=== PATIENT | female | born 1960 | race Caucasian/White ===

== ENCOUNTER 2016-08-10 17:23 | Emergency (ER) | payer MEDICARE, MEDICAID ==
--- NOTE | 2016-08-10 17:53 | UC ---
Respiratory Complaint HPI - HPI Summary HPI Summary: 56 yo female with cough and fever x 5 days no cp no sob no n/v/d - History of Current Complaint Chief Complaint: UCGeneralIllness Stated Complaint: COLD,COUGH,CHILLS Time Seen by Provider: 08/10/16 17:42 Hx Obtained From: Patient Onset/Duration: Gradual Onset, Lasting Days Timing: Constant Severity Initially: Mild Severity Currently: Moderate Pain Intensity: 0 Pain Scale Used: 0-10 Numeric Character: Cough: Productive Aggravating Factors: Exertion, Deep Breaths Associated Signs And Symptoms: Positive: Fever, Chills. Negative: Dyspnea, Pleuritic Chest Pain, Wheezing, Hemoptysis, Dizziness, Calf Pain, Calf Swelling , Edema, URI, Nasal Congestion, Hoarseness, Sinus Discomfort - Allergies/Home Medications Allergies/Adverse Reactions: Allergies Allergy/AdvReac Type Severity Reaction Status Date / Time Benzonatate [From Tessalon] Allergy Hives Verified 08/10/16 17:29 Penicillin G Allergy Hives/Diff. Verified 08/10/16 17:29 Breathing/I tching Sulfa Drugs Allergy Hives Verified 08/10/16 17:29 PMH/Surg Hx/FS Hx/Imm Hx Previously Healthy: Yes - Surgical History Surgical History: Yes Surgery Procedure, Year, and Place: appy. c section - Family History Known Family History: Positive: Hypertension - Social History Alcohol Use: Rare Substance Use Type: None Smoking Status (MU): Former Smoker - Immunization History Most Recent Influenza Vaccination: unsure Most Recent Tetanus Shot: thinks she is current Most Recent Pneumonia Vaccination: denies Review of Systems Constitutional: Fever, Chills, Fatigue Skin: Negative Eyes: Negative ENT: Negative Respiratory: Cough Cardiovascular: Negative Gastrointestinal: Negative Genitourinary: Negative Motor: Negative Neurovascular: Negative Musculoskeletal: Negative Neurological: Headache Psychological: Negative All Other Systems Reviewed And Are Negative: Yes Physical Exam Triage Information Reviewed: Yes Appearance: Well-Appearing, No Pain Distress, Well-Nourished Vital Signs: Initial Vital Signs Temp 101.1 F 08/10/16 17:33 Pulse 103 08/10/16 17:33 Resp 16 08/10/16 17:33 BP 123/73 08/10/16 17:33 Pulse Ox 97 08/10/16 17:33 Vital Signs Reviewed: Yes Eyes: Positive: Conjunctiva Clear ENT: Positive: Normal ENT inspection. Negative: Nasal congestion, Nasal drainage, Tonsillar exudate, Trismus, Muffled/hoarse voice Neck: Positive: Supple, Nontender Respiratory: Positive: Lungs clear, Normal breath sounds, No respiratory distress, No accessory muscle use Cardiovascular: Positive: RRR, No Murmur Musculoskeletal: Positive: ROM Intact, No Edema Neurological: Positive: Alert Psychological Exam: Normal Skin Exam: Normal UC Diagnostic Evaluation - Laboratory O2 Sat by Pulse Oximetry: 97 - normal/not hypoxic - Radiology Xray Interpretation: No Acute Changes Radiology Interpretation Completed By: Radiologist Respiratory Course/Dx - Differential Dx/Diagnosis Provider Diagnoses: acute bronchitis Discharge - Discharge Plan Condition: Stable Disposition: HOME Prescriptions: Azithromycin TAB* [Zithromax TAB (Z-NICKIE) 250 mg #6 tabs] 250 mg PO DAILY #6 tab Patient Education Materials: Acute Bronchitis (ED) Referrals: Maurilio Gonzalez MD [Primary Care Provider] - 4 Days (if not better) Additional Instructions: recheck for new or worsening symptoms
[2016-08-10 17:59] VITALS: BP 123/73
--- NOTE | 2016-08-10 18:14 | RAD ---
Indication: Fever, cough. 2 views of the chest demonstrates no mediastinal shift. Heart is of normal size and configuration. Lung fortune are clear. IMPRESSION: No active cardiopulmonary disease is noted.
== END 2016-08-10 18:38 | disposition home or self-care (01) ==
LOC: UCEAST 17:23
DX: J20.9 Acute bronchitis, unspecified (principal); Z87.891 Personal history of nicotine dependence
CPT/HCPCS: 71020; 99212; G0463

== ENCOUNTER 2016-08-17 11:28 | Inpatient (IN) | payer MEDICARE, MEDICAID ==
[2016-08-17 12:53] LABS: Hematocrit 39 % (35-47); Hemoglobin 12.5 g/dl (12.0-16.0); Mean Corpuscular HGB Conc 32 g/dl (31-36); Mean Corpuscular Hemoglobin 30 pg (27-31); Mean Corpuscular Volume 92 fL (80-97); Mean Platelet Volume 8 um3 (7.4-10.4); Red Blood Count 4.17 10^6/ul (4.0-5.4); Red Cell Distribution Width 13 % (10.5-15); White Blood Count 8.2 10^3/ul (3.5-10.8)
[2016-08-17 13:07] LABS: ALT 9 U/L (7-52); AST 19 U/L (13-39); Albumin 4.5 g/dL (3.2-5.2); Alkaline Phosphatase 63 U/L (34-104); Anion Gap 8 mmol/L (2-11); BUN/Creatinine Ratio 18.4 (8-20); Blood Urea Nitrogen 14 mg/dL (6-24); CO2 Carbon Dioxide 29 mmol/L (22-32); Calcium 9.8 mg/dL (8.6-10.3); Chloride 101 mmol/L (101-111); EGFR African American 100.5 (>60); EGFR Non-African American 78.2 (>60); Globulin 2.9 g/dL (2-4); Glucose 108 mg/dL (70-100); Potassium 4.2 mmol/L (3.5-5.0); Sodium 138 mmol/L (133-145); Total Protein 7.4 g/dL (6.4-8.9)
[2016-08-17 13:28] LABS: Acetaminophen < 15 mcg/mL; Alcohol < 10 mg/dL (<10); Salicylate < 2.50 mg/dL (<30)
[2016-08-17 13:37] LABS: TSH (Thyroid Stimulating Horm) 0.79 mcIU/mL (0.34-5.60)
[2016-08-17 14:16] LABS: Urine Bacteria Absent (Absent); Urine Bilirubin Negative (Negative); Urine Glucose Negative (Negative); Urine Nitrite Negative (Negative)
[2016-08-17 14:29] LABS: Benzodiazepine Urine Screen Presumptive Positive (None Detect)
[2016-08-17] MEDS ORDERED: Al Hydrox/Mg Hydrox/Simet LIQ* 30 ML UDC PO PRN (16:03)
[2016-08-17] MEDS ORDERED: Acetaminophen TAB* 325 MG PO PRN (16:03)
[2016-08-17] MEDS: ARIPiprazole TAB* 5 MG PO SCH (20:50)
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
[2016-08-18] MEDS: Vitamin THERAPEUTIC TAB PO SCH (09:08)
[2016-08-18] MEDS: Sertraline* 100 MG TAB PO SCH (09:08)
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
[2016-08-18 15:05] LABS: Cholesterol 217 mg/dL; HDL Cholesterol 48.3 mg/dL; LDL Cholesterol 152 mg/dL; Triglycerides 83 mg/dL
[2016-08-18] MEDS: ARIPiprazole TAB* 5 MG PO SCH (21:26)
[2016-08-18] MEDS: LORazepam TAB(*) 0.5 MG PO SCH (21:26)
[2016-08-19] MEDS: Sertraline* 100 MG TAB PO SCH (09:05)
[2016-08-19] MEDS: Vitamin THERAPEUTIC TAB PO SCH (09:05)
[2016-08-19] MEDS ORDERED: guaiFENesin LIQ* 100 MG/5 ML UDC PO PRN (18:33)
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
--- NOTE | 2016-08-19 19:32 | RAD ---
INDICATION: Cough with a history of bronchitis. COMPARISON: Most recent comparison chest x-rays dated August 10, 2016 TECHNIQUE: PA and lateral views of the chest were obtained. FINDINGS: The heart and mediastinum are normal in size and contour. Overlying the bilateral lower lungs are proximally 1 cm well-circumscribed densities that most likely represent nipple shadows. The lungs are otherwise grossly clear without focal or lobar consolidation. No significant peribronchial cuffing is observed. There is no evidence of large pleural effusion. Visualized bones are normal for the patient's age. There is no radiographic evidence of free air beneath the diaphragm IMPRESSION: 1. WELL-CIRCUMSCRIBED ROUND DENSITIES AT THE BILATERAL LUNG BASES MOST LIKELY REPRESENT NIPPLE SHADOWS. THIS CAN BE CONFIRMED WITH ACQUISITION OF A REPEAT AP CHEST X-RAY AFTER APPLYING EXTERNAL NIPPLE MARKERS. 2. OTHERWISE THERE IS NO RADIOGRAPHIC EVIDENCE OF ACUTE CARDIOPULMONARY DISEASE.
[2016-08-19] MEDS: ARIPiprazole TAB* 5 MG PO SCH (21:26)
[2016-08-19] MEDS: LORazepam TAB(*) 0.5 MG PO SCH (21:26)
[2016-08-20] MEDS: Vitamin THERAPEUTIC TAB PO SCH (09:08)
[2016-08-20] MEDS: Sertraline* 100 MG TAB PO SCH (09:08)
[2016-08-21] MEDS: ARIPiprazole TAB* 5 MG PO SCH ×2 (07:28→22:23)
[2016-08-21] MEDS: LORazepam TAB(*) 0.5 MG PO SCH ×2 (07:28→22:24)
[2016-08-21] MEDS: Vitamin THERAPEUTIC TAB PO SCH (09:17)
[2016-08-21] MEDS: Sertraline* 100 MG TAB PO SCH (09:17)
--- NOTE | 2016-08-21 13:05 | PN ---
MHU: Group Therapy Note - Service Type Service Type: [id number] Group Psychotherapy - Cognitive Behavioral Group Therapy ( CBT):Patient attended CBT programming this morning and presented with flat affect that did not vary with discussion. Although responsive to direct prompts to respond to questions, patient did not engage in spontaneous conversation.
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
[2016-08-22] MEDS: Vitamin THERAPEUTIC TAB PO SCH (08:16)
[2016-08-22] MEDS ORDERED: Sertraline* 100 MG TAB PO SCH ×3 (09:00)
--- NOTE | 2016-08-22 10:16 | PN ---
Subjective - Subjective Service Type: 79468 Hosp care 15 min low complexity Assessment - Assessment Inpatient DSM-IV Dx: Unspecified psychotic DO. OCD. Intellectual disability Clinical Impression: 56yo female with PPHx significant for Intellectual disability, OCD, and psychosis [place] [facility] [place] by her rifle case repairer. Patient in a period of psychosis which per historical report is focused on paranoia about her sister and fear of getting sick due to germs. This paranoia is associated with decompensation in ability to maintain ADLs and to keep herself safe. It is noted that patient was med non-compliant for ~1 week prior to admission. She was on Zoloft 200mg po daily. Patient has been med compliant and was anxious but onboard with Zoloft dose increase. Will discuss with daughter as well. Plan - Plan Treatment Plan: Name: PRISCA CLARK Birthdate: 1960 [id number] PLAN: ------ 1. Continue admission [place] [facility] for [place] and symptom mx. 2. Patient has voiced concern with new meds. She was amenable to trial of Zoloft 300mg po daily for anxiety / OCD / mood symptoms. 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 3. Will continue to encourage Abilify 5mg po qhs for psychosis. 4. Continue compiling collateral information from daughter(Rachael#[phone]) left message for return call today, shoe parts caser -Rick, PCP, and [facility] providers. 5. Patient to participate in milieu activities and groups. Medications: Current Medications Acetaminophen (Tylenol Tab*) 650 mg PO Q4H PRN PRN Reason: for pain; or Temp >101 F Al Hydrox/Mg Hydrox/Simethicone (Maalox Plus*) 30 ml PO Q4H PRN PRN Reason: INDIGESTION Aripiprazole (Abilify Tab*) 5 mg PO BEDTIME [facility] Last Admin: 08/21/16 22:23 Dose: Not Given Guaifenesin (Robitussin*) 5 ml PO Q6H PRN PRN Reason: COUGH Lorazepam (Ativan Tab(*)) 0.25 mg PO BEDTIME [facility] Last Admin: 08/21/16 22:24 Dose: Not Given Multivitamins (Theragran Tab*) 1 tab PO DAILY [facility] Last Admin: 08/22/16 08:16 Dose: 1 tab Sertraline HCl (Zoloft*) 200 mg PO DAILY [facility] Last Admin: 08/22/16 08:16 Dose: 200 mg
--- NOTE | 2016-08-22 11:46 | PN ---
MHU: Group Therapy Note - Service Type Service Type: [id number] Group Psychotherapy - Cognitive Behavioral Therapy (CBT): Patient presents with high volume of speech that impresses as being coherent within the context of self-report, but is tangential and off topic in group context. Concerns regarding disorganization of thought are apparent.
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
[2016-08-22] MEDS: LORazepam TAB(*) 0.5 MG PO SCH (21:18)
[2016-08-22] MEDS: ARIPiprazole TAB* 5 MG PO SCH (21:18)
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
[2016-08-23] MEDS: Vitamin THERAPEUTIC TAB PO SCH (13:12)
[2016-08-23] MEDS: Sertraline* 100 MG TAB PO SCH (13:13)
[2016-08-23 14:11] LABS: Desmethylsertraline 340 ng/mL
[2016-08-24] MEDS: Sertraline* 100 MG TAB PO SCH (09:37)
[2016-08-24] MEDS: Vitamin THERAPEUTIC TAB PO SCH (09:37)
--- NOTE | 2016-08-24 11:15 | PN ---
MHU: Group Therapy Note - Service Type Service Type: [id number] Group Psychotherapy - Cognitive Behavioral Group Therapy ( CBT):Patient presented in CBT programming as disorganized and disruptive in discussion and needed repeated redirection to attend to presented materials.
--- NOTE | 2016-08-24 11:48 | PN ---
Subjective - Subjective Service Type: 19931 Hosp care 15 min low complexity Subjective: Patient continues to be consumed with germs and potentially being killed by them. She did take Zoloft 300mg tab yesterday, but demanded an elaborate cleanliness routine to administer. Patient also showered as agreed in a new bedroom. Patient did sleep in her room last night. She has showered this morning. Patient continues to be engaged and pleasant. Appetite is wnl. Paitent denies med s/e. She denies SI/HI and AH/VH. Objective - Appearance Appearance: Well Developed/Nourished Dysmorphic Features: No Hygiene: Normal Grooming: Fairly Well Kept - Behavior Psychomotor Activities: Normal Exhibits Abnormal Movement: No - Attitude and Relatedness Attitude and Relatedness: Cooperative Eye Contact: Good - Speech Quality: Unpressured Latencies: Normal Quantity: Appropriate - Affect Observed Affect: Depressed Affect Consistent with: Dysphoria - Thought Process Patient's Thought Process: Coherent Thought Content: No Passive Wish, No Suicidal Planning, No Homicidal Ideation, No Paranoid Ideation - Sensorium Experiencing Hallucinations: No, Sensorium is Clear Type of Hallucinations: Visual: No, Auditory: No, Command: No - Level of Consciousness Orientation: Yes Intact, Yes Orientated to Time, Yes Orientated to Place, Yes Orientated to Person - Impulse Control Impulse Control: Intact - Insight and Judgement Insight and Judgement: Fair - Group Participation Particating in Group Activities: Yes - Medication Management Medication Management Adherence: Partial Assessment - Assessment Merits Inpatient Hospitalization: For Immediate Safety, For Stabilization Inpatient DSM-IV Dx: Unspecified psychotic DO. OCD. Intellectual disability Clinical Impression: 56yo female with PPHx significant for Intellectual disability, OCD, and psychosis presented to [facility] brought in by her case mgr. Patient in a period of psychosis which per historical report is focused on paranoia about her sister and fear of getting sick due to germs. This paranoia is associated with decompensation in ability to maintain ADLs and to keep herself safe. It is noted that patient was med non-compliant for ~1 week prior to admission. She has been compliant with Zoloft 200mg po daily, but has declined the start of high dose Zoloft after initially being on board due to anxiety of potential side effects. Patient also refusing recommended antipsychotic med Abilify. At Family meeting on 08/22/16 patient agreed to be compliant with high dose Zoloft for treatment resistent OCD. Plan - Plan Treatment Plan: Name: PRISCA CLARK Birthdate: 1960 [id number] PLAN: ------ 1. Continue admission to [facility] for safety and symptom mx. 2. 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 3. Zoloft level - 192, range is 30 to 200. Desmethylsertraline - 340, no range 4. Will continue to encourage Abilify 5mg po qhs for psychosis. Patient has been refusing recommended antipsychotic med Abilify. 5. Will start process for treatment over objection for psychotic symptoms not addressed by Zoloft. 6. Family meeting with daughter Rachael, case mgr Rick, patient and this provider completed 08/22/16. 7. Patient to participate in milieu activities and groups. Medications: Current Medications Acetaminophen (Tylenol Tab*) 650 mg PO Q4H PRN PRN Reason: for pain; or Temp >101 F Al Hydrox/Mg Hydrox/Simethicone (Maalox Plus*) 30 ml PO Q4H PRN PRN Reason: INDIGESTION Aripiprazole (Abilify Tab*) 5 mg PO BEDTIME RESHMA Last Admin: 08/24/16 00:00 Dose: Not Given Guaifenesin (Robitussin*) 5 ml PO Q6H PRN PRN Reason: COUGH Lorazepam (Ativan Tab(*)) 0.25 mg PO BEDTIME RESHMA Last Admin: 08/24/16 00:00 Dose: Not Given Multivitamins (Theragran Tab*) 1 tab PO DAILY [facility]HMA Last Admin: 08/24/16 09:37 Dose: Not Given Sertraline HCl (Zoloft*) 300 mg PO DAILY [facility] Last Admin: 08/24/16 09:37 Dose: Not Given - Discharge Plan Discharge Plan: Outpatient Follow Up Outpatient Program: [facility]
[2016-08-24] MEDS: ARIPiprazole TAB* 5 MG PO SCH ×2 (20:09)
[2016-08-24] MEDS: LORazepam TAB(*) 0.5 MG PO SCH ×2 (20:09)
[2016-08-25] MEDS: Sertraline* 100 MG TAB PO SCH (08:32)
[2016-08-25] MEDS: Vitamin THERAPEUTIC TAB PO SCH (08:32)
--- NOTE | 2016-08-25 15:13 | PN ---
Subjective - Subjective Service Type: 45049 Hosp care 15 min low complexity Subjective: Patient tearful on my approach. She reports being upset with peers and staff who are laughing at her disability. Patient's affect very anxious and scared at times during interview. Patient was reassured she was not the topic of their laughter. She was asked what evidence or proof does she have that staff/peers are laughing at her. Patient stated, "I just don't trust people here". Patient then escorted this provider to her room to show that her sheets had been moved from how she left them after making her bed and that a bag she left closed had been opened. She stated, "I can just tell, I know how I left it". Patient did take her Zoloft dose this morning. She was encouraged to continue being compliant. She is noted to have fair sleep and appetite. She has not showered in 2 days now. Last shower after hours of prompting. She is isolative in the milieu and will not touch most things due to germaphobia. She does though participate in milieu activities and touched multiple art supplies without concern for germs. She is noted to rarely attend groups, and reported to be a disruptive presence due to compulsions. She denies SI/HI and AH/VH. Objective - Appearance Appearance: Well Developed/Nourished Dysmorphic Features: No Hygiene: Mal-odorous Grooming: Disheveled - Behavior Psychomotor Activities: Normal Exhibits Abnormal Movement: No - Attitude and Relatedness Attitude and Relatedness: Superficially Cooperative Eye Contact: Good - Speech Quality: Unpressured Latencies: Normal Quantity: Appropriate - Mood Patient's Decription of Mood: "Anxious" - Affect Observed Affect: Labile - Thought Process Patient's Thought Process: Coherent Thought Content: No Passive Wish, No Suicidal Planning, No Homicidal Ideation, No Paranoid Ideation - Sensorium Experiencing Hallucinations: No, Sensorium is Clear Type of Hallucinations: Visual: No, Auditory: No, Command: No - Level of Consciousness Level of Consciousness: Alert Orientation: Yes Intact, Yes Orientated to Time, Yes Orientated to Place, Yes Orientated to Person - Impulse Control Impulse Control: Poor - Insight and Judgement Insight and Judgement: Poor - Group Participation Particating in Group Activities: No - Medication Management Medication Management Adherence: Partial Assessment - Assessment Merits Inpatient Hospitalization: For Immediate Safety, For Stabilization Inpatient DSM-IV Dx: Unspecified psychotic DO. OCD. Intellectual disability Clinical Impression: 56yo female with PPHx significant for Intellectual disability, OCD, and psychosis presented to [facility] brought in by her family caseworker. Patient in a period of psychosis which per historical report is focused on paranoia about her sister and fear of getting sick due to germs. This paranoia is associated with decompensation in ability to maintain ADLs and to keep herself safe. It is noted that patient was med non-compliant for ~1 week prior to admission. 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 She has been compliant for the last 2 days. Patient continues to refuse recommended antipsychotic med Abilify, but last admission only required uptitration of SSRI for resolution of OCD/psychotic Symptoms. Patient will be started on a behavioral modification plan Sunday to address her Ongoing inattention to ADLs, poor med compliance, and poor participation in milieu activities And groups due to her perception/paranoia of peers laughing at her disability and germaphobia. Plan - Plan Treatment Plan: Name: PRISCA LCARK Birthdate: 1960 [id number] PLAN: ------ 1. Continue admission to [facility] for safety and symptom mx. 2. 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 3. Zoloft level - 192, range is 30 to 200. Desmethylsertraline - 340, no range 4. Will continue to encourage Abilify 5mg po qhs for psychosis. Patient has been refusing recommended antipsychotic med Abilify. 5. Plan to start Behavioral modification plan to address patient's Sunday to address ongoing inattention to ADLs, poor med compliance, and poor participation in milieu activities and groups due to her perception/paranoia of peers laughing at her disability and germaphobia. 6. Will likely start process for treatment over objection for psychotic symptoms not addressed by Zoloft. 7. Family meeting with daughter Rachael, family caseworker Rick, patient and this provider completed 08/22/16. 8. Patient to participate in milieu activities and groups. Medications: Current Medications Acetaminophen (Tylenol Tab*) 650 mg PO Q4H PRN PRN Reason: for pain; or Temp >101 F Al Hydrox/Mg Hydrox/Simethicone (Maalox Plus*) 30 ml PO Q4H PRN PRN Reason: INDIGESTION Aripiprazole (Abilify Tab*) 5 mg PO BEDTIME RESHMA Last Admin: 08/24/16 20:09 Dose: Not Given Guaifenesin (Robitussin*) 5 ml PO Q6H PRN PRN Reason: COUGH Lorazepam (Ativan Tab(*)) 0.25 mg PO BEDTIME RESHMA Last Admin: 08/24/16 20:09 Dose: Not Given Multivitamins (Theragran Tab*) 1 tab PO DAILY [facility]HMA Last Admin: 08/25/16 08:32 Dose: 1 tab Sertraline HCl (Zoloft*) 300 mg PO DAILY [facility] Last Admin: 08/25/16 08:32 Dose: 300 mg - Discharge Plan Discharge Plan: Outpatient Follow Up Outpatient Program: [facility]
[2016-08-25] MEDS: ARIPiprazole TAB* 5 MG PO SCH (21:45)
[2016-08-25] MEDS: LORazepam TAB(*) 0.5 MG PO SCH (21:45)
[2016-08-26] MEDS: Sertraline* 100 MG TAB PO SCH (09:24)
[2016-08-26] MEDS: Vitamin THERAPEUTIC TAB PO SCH (10:07)
[2016-08-26] MEDS: ARIPiprazole TAB* 5 MG PO SCH (21:18)
[2016-08-26] MEDS: LORazepam TAB(*) 0.5 MG PO SCH (21:18)
[2016-08-27] MEDS: Sertraline* 100 MG TAB PO SCH ×2 (09:37→09:49)
[2016-08-27] MEDS: Vitamin THERAPEUTIC TAB PO SCH ×2 (09:38→09:49)
[2016-08-27] MEDS: ARIPiprazole TAB* 5 MG PO SCH (21:32)
[2016-08-27] MEDS: LORazepam TAB(*) 0.5 MG PO SCH (21:32)
[2016-08-28] MEDS: Vitamin THERAPEUTIC TAB PO SCH (09:55)
[2016-08-28] MEDS: Sertraline* 100 MG TAB PO SCH ×2 (09:55→16:19)
--- NOTE | 2016-08-28 14:04 | PN ---
MHU: Group Therapy Note - Service Type Service Type: 48160 Group Psychotherapy - Cognitive Behavioral Group Therapy ( CBT):Patient presented in CBT programming as disorganized and disruptive in discussion and needed repeated redirection to attend to presented materials.
--- NOTE | 2016-08-28 14:09 | PN ---
Subjective - Subjective Service Type: 53125 Hosp care 15 min low complexity Subjective: Patient noted to be tearful and pacing the milieu on my approach. Patient continues to perseverate on germs in the milieu. She ambulates in the milieu with her arms crossed over her chest in effort to not touch anything. She has not showered since Sunday's visit by her daughter. She was not compliant with Zoloft on Sunday. She continues to report paranoid ideations regarding one staff in particular(Mazin), who patient reports has been laughing at her and "making fun of me". Patient reports again that someone was in her room today without permission, noting again that her sheets were moved from how she knows she left them. She also reported believing there was a camera in her room watching her. She was informed the object was sprinkler head. She continues to decline the antipsychotic, Abilify. Patient stated, "If Mazin's not here, I will take the medicine." She stated, "he can not be trusted". Patient reports fair sleep and appetite. She again denies SI/HI and AH/VH. Objective - Appearance Appearance: Thin Framed Dysmorphic Features: Yes Hygiene: Mal-odorous Grooming: Disheveled - Behavior Psychomotor Activities: Normal Exhibits Abnormal Movement: No - Attitude and Relatedness Attitude and Relatedness: Minimally Cooperative Eye Contact: Fair - Speech Quality: Unpressured Latencies: Normal Quantity: Appropriate - Mood Patient's Decription of Mood: "Anxious" - Affect Observed Affect: Tearful - Thought Process Patient's Thought Process: Coherent Thought Content: No Passive Wish, No Suicidal Planning, No Homicidal Ideation, No Paranoid Ideation - Sensorium Experiencing Hallucinations: No, Sensorium is Clear Type of Hallucinations: Visual: No, Auditory: No, Command: No - Level of Consciousness Level of Consciousness: Alert Orientation: Yes Intact, Yes Orientated to Time, Yes Orientated to Place, Yes Orientated to Person - Impulse Control Impulse Control: Poor - Insight and Judgement Insight and Judgement: Poor - Group Participation Particating in Group Activities: Yes - Medication Management Medication Management Adherence: No Assessment - Assessment Merits Inpatient Hospitalization: For Immediate Safety Inpatient DSM-IV Dx: Unspecified psychotic DO. OCD. Intellectual disability Clinical Impression: 56yo female with PPHx significant for Intellectual disability, OCD, and psychosis presented to [facility] brought in by her adult protective caseworker. Patient in a period of psychosis which per historical report is focused on paranoia about her sister and fear of getting sick due to germs. This paranoia is associated with decompensation in ability to maintain ADLs and to keep herself safe. It is noted that patient was med non-compliant for ~1 week prior to admission. 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 She has been compliant for the last 2 days. Patient continues to refuse recommended antipsychotic med Abilify and demonstrates patchy compliance with SSRI for resolution of OCD symptoms. Patient will be started on a behavioral modification plan Sunday to address her ongoing inattention to ADLs, poor med compliance, and poor participation in milieu activities and groups due to her perception/paranoia of peers laughing at her disability and germaphobia. Plan - Plan Treatment Plan: Name: PRISCA CLARK Birthdate: 1960 [id number] PLAN: ------ 1. Continue admission to [facility] for safety and symptom mx. 2. 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 3. Zoloft level - 192, range is 30 to 200. Desmethylsertraline - 340, no range 4. Continue to encourage Abilify 5mg po qhs for psychosis. Patient has been refusing recommended antipsychotic med Abilify. 5. Plan to start Behavioral modification plan to address patient's ongoing inattention to ADLs, poor med compliance, and poor participation in milieu activities and groups due to her perception/ paranoia of peers laughing at her disability and germaphobia. 6. Treatment over objection process initiated due to ongoing patchy compliance with high dose Zoloft and non-compliance with antipsychotic agent. 7. Family meeting with daughter Rachael, adult protective caseworker Rick, patient and this provider completed 08/22/16. 8. Patient to participate in milieu activities and groups. Medications: Current Medications Acetaminophen (Tylenol Tab*) 650 mg PO Q4H PRN PRN Reason: for pain; or Temp >101 F Al Hydrox/Mg Hydrox/Simethicone (Maalox Plus*) 30 ml PO Q4H PRN PRN Reason: INDIGESTION Aripiprazole (Abilify Tab*) 5 mg PO BEDTIME RESHMA Last Admin: 08/27/16 21:32 Dose: Not Given Guaifenesin (Robitussin*) 5 ml PO Q6H PRN PRN Reason: COUGH Lorazepam (Ativan Tab(*)) 0.25 mg PO BEDTIME RESHMA Last Admin: 08/27/16 21:32 Dose: Not Given Multivitamins (Theragran Tab*) 1 tab PO DAILY RES[facility]MA Last Admin: 08/28/16 09:55 Dose: Not Given Sertraline HCl (Zoloft*) 300 mg PO DAILY [facility] Last Admin: 08/28/16 09:55 Dose: Not Given - Discharge Plan Discharge Plan: Outpatient [facility]
[2016-08-28] MEDS: ARIPiprazole TAB* 5 MG PO SCH (20:22)
[2016-08-28] MEDS: LORazepam TAB(*) 0.5 MG PO SCH (20:22)
[2016-08-29] MEDS: Sertraline* 100 MG TAB PO SCH ×2 (09:47→13:02)
[2016-08-29] MEDS: Vitamin THERAPEUTIC TAB PO SCH ×2 (09:48→13:03)
--- NOTE | 2016-08-29 10:33 | PN ---
Subjective - Subjective Service Type: 34699 Hosp care 15 min low complexity Subjective: Patient visible in the milieu, attends some groups but continues to refuse meds. Patient reports ongoing fear of getting sick from the meds. She had been compliant with Zoloft, but has recently been non-compliant. Patient continues to not attend to ADLs. She has not showered in days. She expresses ongoing mistrust of staff, paranoia that peers are going in her room, and inability engage in activities in the milieu due to germaphobia. Patient continues to report no SI/HI. Objective - Appearance Appearance: Thin Framed Dysmorphic Features: No Hygiene: Mal-odorous Grooming: Disheveled - Behavior Psychomotor Activities: Normal Exhibits Abnormal Movement: Yes - Attitude and Relatedness Attitude and Relatedness: Superficially Cooperative Eye Contact: Fair - Speech Quality: Unpressured Latencies: Normal Quantity: Appropriate - Mood Patient's Decription of Mood: "Anxious" - Affect Observed Affect: Tearful - Thought Process Patient's Thought Process: Coherent Thought Content: No Passive Wish, No Suicidal Planning, No Homicidal Ideation, No Paranoid Ideation - Sensorium Experiencing Hallucinations: No, Sensorium is Clear Type of Hallucinations: Visual: No, Auditory: No, Command: No - Level of Consciousness Level of Consciousness: Alert Orientation: Yes Intact, Yes Orientated to Time, Yes Orientated to Place, Yes Orientated to Person - Impulse Control Impulse Control: Intact - Insight and Judgement Insight and Judgement: Poor - Group Participation Particating in Group Activities: No - Medication Management Medication Management Adherence: No Assessment - Assessment Inpatient DSM-IV Dx: Unspecified psychotic DO. OCD. Intellectual disability Clinical Impression: 56yo female with PPHx significant for Intellectual disability, OCD, and psychosis presented to [facility] brought in by her classification case manager. Patient in a period of psychosis which per historical report is focused on paranoia about her sister and fear of getting sick due to germs. This paranoia is associated with decompensation in ability to maintain ADLs and to keep herself safe. It is noted that patient was med non-compliant for ~1 week prior to admission. 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 She has been compliant for the last 2 days. Patient continues to refuse recommended antipsychotic med Abilify and demonstrates patchy compliance with SSRI for resolution of OCD symptoms. Patient will be started on a behavioral modification plan Sunday to address her ongoing inattention to ADLs, poor med compliance, and poor participation in milieu activities and groups due to her perception/paranoia of peers laughing at her disability and germaphobia. Plan - Plan Treatment Plan: Name: PRISCA CLARK Birthdate: 1960 [id number] PLAN: ------ 1. Continue admission to [facility] for safety and symptom mx. 2. 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 3. Zoloft level - 192, range is 30 to 200. Desmethylsertraline - 340, no range 4. Continue to encourage Abilify 5mg po qhs for psychosis. Patient has been refusing recommended antipsychotic med Abilify. 5. Plan to start Behavioral modification plan to address patient's ongoing inattention to ADLs, poor med compliance, and poor participation in milieu activities and groups due to her perception/ paranoia of peers laughing at her disability and germaphobia. 6. Treatment over objection process initiated due to ongoing patchy compliance with high dose Zoloft and non-compliance with antipsychotic agent. 7. Family meeting with daughter Rachael, classification case manager Rick, patient and this provider completed 08/22/16. 8. Patient to participate in milieu activities and groups. Medications: Current Medications Acetaminophen (Tylenol Tab*) 650 mg PO Q4H PRN PRN Reason: for pain; or Temp >101 F Al Hydrox/Mg Hydrox/Simethicone (Maalox Plus*) 30 ml PO Q4H PRN PRN Reason: INDIGESTION Aripiprazole (Abilify Tab*) 5 mg PO BEDTIME RESHMA Last Admin: 08/28/16 20:22 Dose: Not Given Guaifenesin (Robitussin*) 5 ml PO Q6H PRN PRN Reason: COUGH Lorazepam (Ativan Tab(*)) 0.25 mg PO BEDTIME RESHMA Last Admin: 08/28/16 20:22 Dose: Not Given Multivitamins (Theragran Tab*) 1 tab PO DAILY [facility] Last Admin: 08/29/16 09:48 Dose: Not Given Sertraline HCl (Zoloft*) 300 mg PO DAILY [facility] Last Admin: 08/29/16 09:47 Dose: Not Given - Discharge Plan Discharge Plan: Outpatient Follow Up Outpatient Program: [facility]
--- NOTE | 2016-08-29 12:02 | PN ---
MHU: Group Therapy Note - Service Type Service Type: 39008 Group Psychotherapy - Cognitive Behavioral Group Therapy ( CBT):Patient presented in CBT programming as disorganized and disruptive in discussion and needed repeated redirection to attend to presented materials.
[2016-08-29] MEDS: ARIPiprazole TAB* 5 MG PO SCH (21:21)
[2016-08-29] MEDS: LORazepam TAB(*) 0.5 MG PO SCH (21:21)
[2016-08-30] MEDS: Vitamin THERAPEUTIC TAB PO SCH (09:17)
[2016-08-30] MEDS: Sertraline* 100 MG TAB PO SCH (09:17)
--- NOTE | 2016-08-30 11:56 | PN ---
MHU: Group Therapy Note - Service Type Service Type: [id number] Group Psychotherapy - Cognitive Behavioral Group Therapy ( CBT):Patient presented in CBT programming as disorganized and disruptive in discussion and needed repeated redirection to attend to presented materials.
--- NOTE | 2016-08-30 17:43 | PN ---
Subjective - Subjective Service Type: [id number] Hosp care 15 min low complexity Subjective: Patient continues to be fearful on the unit. She has was compliant with Zoloft this morning, but would not take Abilify. Patient stated, "I don't trust it". Patient continues to perseverate on germs in the milieu and express paranoid ideations about staff going in her room, staff touching her meds, and becoming upset when anyone in the milieu laughs as she states, "they're laughing at me". She was informed of Sunday's [address] hearing regarding treatment over objection and the proceeding was discussed/explained to patient. She denies SI/HI and AH/VH. Sleep is fair. Appetite is low due to paranoia. Patient is again reassured she is safe on the unit. Objective - Appearance Appearance: Well Developed/Nourished Dysmorphic Features: No Hygiene: Mal-odorous Grooming: Disheveled - Behavior Psychomotor Activities: Normal Exhibits Abnormal Movement: No - Attitude and Relatedness Attitude and Relatedness: Superficially Cooperative Eye Contact: Fair - Speech Quality: Unpressured Latencies: Normal Quantity: Appropriate - Mood Patient's Decription of Mood: "Anxious" - Affect Observed Affect: Depressed Affect Consistent with: Dysphoria - Thought Process Patient's Thought Process: Coherent Thought Content: No Passive Wish, No Suicidal Planning, No Homicidal Ideation, No Paranoid Ideation - Sensorium Experiencing Hallucinations: No, Sensorium is Clear Type of Hallucinations: Visual: No, Auditory: No, Command: No - Level of Consciousness Level of Consciousness: Alert Orientation: Yes Intact, Yes Orientated to Time, Yes Orientated to Place, Yes Orientated to Person - Impulse Control Impulse Control: Intact - Insight and Judgement Insight and Judgement: Impaired - Group Participation Particating in Group Activities: Yes - Medication Management Medication Management Adherence: Yes Assessment - Assessment Merits Inpatient Hospitalization: For Immediate Safety, For Stabilization Inpatient DSM-IV Dx: Unspecified psychotic DO. OCD. Intellectual disability Clinical Impression: 56yo female with PPHx significant for Intellectual disability, OCD, and psychosis presented to [facility] brought in by her skilled nursing case manager. Patient in a period of psychosis which per historical report is focused on paranoia about her sister and fear of getting sick due to germs. This paranoia is associated with decompensation in ability to maintain ADLs and to keep herself safe. It is noted that patient was med non-compliant for ~1 week prior to admission. 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 She has been compliant for the last 2 days. Patient continues to refuse recommended antipsychotic med Abilify and demonstrates patchy compliance with SSRI for resolution of OCD symptoms. Patient will be started on a behavioral modification plan Sunday to address her ongoing inattention to ADLs, poor med compliance, and poor participation in milieu activities and groups due to her perception/paranoia of peers laughing at her disability and germaphobia. Plan - Plan Treatment Plan: Name: PRISCA CLARK Birthdate: 1960 [id number] PLAN: ------ 1. Continue admission to [facility] for safety and symptom mx. 2. 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 3. Zoloft level - 192, range is 30 to 200. Desmethylsertraline - 340, no range 4. Continue to encourage Abilify 5mg po qhs for psychosis. Patient has been refusing recommended antipsychotic med Abilify. 5. Hearing for T.O.O. schedueld for Sunday afternoon. 6. Family meeting with daughter Rachael, skilled nursing case manager Rick, patient and this provider completed 08/22/16. 7. Patient to participate in milieu activities and groups. Medications: Current Medications Acetaminophen (Tylenol Tab*) 650 mg PO Q4H PRN PRN Reason: for pain; or Temp >101 F Al Hydrox/Mg Hydrox/Simethicone (Maalox Plus*) 30 ml PO Q4H PRN PRN Reason: INDIGESTION Aripiprazole (Abilify Tab*) 5 mg PO DAILY [facility] Guaifenesin (Robitussin*) 5 ml PO Q6H PRN PRN Reason: COUGH Lorazepam (Ativan Tab(*)) 0.25 mg PO BEDTIME [facility] Last Admin: 08/29/16 21:21 Dose: Not Given Multivitamins (Theragran Tab*) 1 tab PO DAILY [facility] Last Admin: 08/30/16 09:17 Dose: 1 tab Sertraline HCl (Zoloft*) 300 mg PO DAILY [facility] Last Admin: 08/30/16 09:17 Dose: 300 mg - Discharge Plan Discharge Plan: Outpatient Follow Up Outpatient Program: Luci Melgoza [facility]
[2016-08-30] MEDS: ARIPiprazole TAB* 5 MG PO SCH (19:06)
[2016-08-30] MEDS: LORazepam TAB(*) 0.5 MG PO SCH (23:57)
[2016-08-31] MEDS: Sertraline* 100 MG TAB PO SCH (09:05)
[2016-08-31] MEDS: Vitamin THERAPEUTIC TAB PO SCH (09:05)
[2016-08-31] MEDS: ARIPiprazole TAB* 5 MG PO SCH (09:08)
--- NOTE | 2016-08-31 11:46 | PN ---
[facility]: Group Therapy Note - Service Type Service Type: [id number] Group Psychotherapy - Cognitive Behavioral Group Therapy ( CBT):Patient was attentive and participatory in CBT programming this morning, and remained in good behavioral control. Patient expressed positive insights regarding relevant treatment interventions and goals.
--- NOTE | 2016-08-31 12:48 | PN ---
Subjective - Subjective Service Type: [id number] Hosp care 15 min low complexity Subjective: Patient is cooperative with interview and is engaged. She reports ongoing anxiety in regard to taking Abilify. She did take her Zoloft 300mg po dose this morning. Patient continues to express germaphobic ideations and paranoid ideations. Her manner is fearful and her affect is anxious. She reports fair sleep. She reports desire to have ensure ordered and requests a med to help with her runny nose she attributes to the high airflow from vents in her room. She denies SI/HI. Objective - Appearance Appearance: Well Developed/Nourished Dysmorphic Features: No Hygiene: Mal-odorous Grooming: Disheveled - Behavior Psychomotor Activities: Normal Exhibits Abnormal Movement: No - Attitude and Relatedness Attitude and Relatedness: Minimally Cooperative Eye Contact: Fair - Speech Quality: Unpressured Latencies: Normal Quantity: Appropriate - Mood Patient's Decription of Mood: "Anxious" - Affect Observed Affect: Tense Affect Consistent with: Dysphoria - Thought Process Patient's Thought Process: Coherent Thought Content: No Passive Wish, No Suicidal Planning, No Homicidal Ideation, No Paranoid Ideation - Sensorium Experiencing Hallucinations: No, Sensorium is Clear Type of Hallucinations: Visual: No, Auditory: No, Command: No - Level of Consciousness Level of Consciousness: Alert Orientation: Yes Intact, Yes Orientated to Time, Yes Orientated to Place, Yes Orientated to Person - Impulse Control Impulse Control: Intact - Insight and Judgement Insight and Judgement: Impaired - Group Participation Particating in Group Activities: Yes - Medication Management Medication Management Adherence: Partial Assessment - Assessment Merits Inpatient Hospitalization: For Immediate Safety, For Stabilization Inpatient DSM-IV Dx: Unspecified psychotic DO. OCD. Intellectual disability Clinical Impression: 56yo female with PPHx significant for Intellectual disability, OCD, and psychosis presented [place] [facility] [place] by her classification case manager. Patient in a period of psychosis which per historical report is focused on paranoia about her sister and fear of getting sick due to germs. This paranoia is associated with decompensation in ability to maintain ADLs and to keep herself safe. It is noted that patient was med non-compliant for ~1 week prior to admission. 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 She has been compliant for the last 2 days. Patient continues to refuse recommended antipsychotic med Abilify and demonstrates patchy compliance with SSRI for resolution of OCD symptoms. Patient will be started on a behavioral modification plan Sunday to address her ongoing inattention to ADLs, poor med compliance, and poor participation in milieu activities and groups due to her perception/paranoia of peers laughing at her disability and germaphobia. Plan - Plan Treatment Plan: Name: PRISCA CLARK Birthdate: 1960 [id number] PLAN: ------ 1. Continue admission to [facility] for safety and symptom mx. 2. 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 3. Zoloft level - 192, range is 30 to 200. Desmethylsertraline - 340, no range 4. Continue to encourage Abilify 5mg po qhs for psychosis. Patient has been refusing recommended antipsychotic med Abilify. 5. Hearing for T.O.O. schedueld for Sunday afternoon. 6. Will order Claritin 10mg po qam for congestion. 7. Will order ensure for patient 8. Family meeting with daughter Rachael, classification case manager Rick, patient and this provider completed 08/22/16. 9. Patient to participate in milieu activities and groups. Continued Medication Management: Different Medication Medications: Current Medications Acetaminophen (Tylenol Tab*) 650 mg PO Q4H PRN PRN Reason: for pain; or Temp >101 F Al Hydrox/Mg Hydrox/Simethicone (Maalox Plus*) 30 ml PO Q4H PRN PRN Reason: INDIGESTION Aripiprazole (Abilify Tab*) 5 mg PO DAILY [facility] Last Admin: 08/31/16 09:08 Dose: Not Given Guaifenesin (Robitussin*) 5 ml PO Q6H PRN PRN Reason: COUGH Lorazepam (Ativan Tab(*)) 0.25 mg PO BEDTIME [facility] Last Admin: 08/30/16 23:57 Dose: Not Given Multivitamins (Theragran Tab*) 1 tab PO DAILY [facility] Last Admin: 08/31/16 09:05 Dose: 1 tab Sertraline HCl (Zoloft*) 300 mg PO DAILY [facility] Last Admin: 08/31/16 09:05 Dose: 300 mg - Discharge Plan Discharge Plan: Outpatient Follow Up Outpatient Program: [facility]
[2016-08-31] MEDS: Cetirizine* 10 MG TAB PO SCH (15:28)
[2016-08-31] MEDS: LORazepam TAB(*) 0.5 MG PO SCH (22:35)
--- NOTE | 2016-09-01 10:24 | PN ---
Subjective - Subjective Service Type: [id number] Hosp care 15 min low complexity Subjective: Patient continues to be fearful on the unit of contact with unclean areas. She continues to ambulate the unit with her arms crossed about her chest. She has not showered and continues to be non-complaint with antipsychotic and only partially compliant with Zoloft. Patient continues to express paranoid thoughts that staff is laughing at her whenever she hears staff laughing. She stated, "staff is giving me a hard time". Patient interpreting persecution of not having the extended series of steps for cleanliness she requires for med administration and prior to her getting into the shower. Patient is very mistrustful of staff. She has declined appearing in court for today's T.O.O hearing. Objective - Appearance Appearance: Thin Framed Dysmorphic Features: No Hygiene: Mal-odorous Grooming: Disheveled - Behavior Psychomotor Activities: Normal Exhibits Abnormal Movement: No - Attitude and Relatedness Attitude and Relatedness: Superficially Cooperative Eye Contact: Fair - Speech Quality: Unpressured Latencies: Normal Quantity: Terse - Mood Patient's Decription of Mood: "Anxious" - Affect Observed Affect: Tense Affect Consistent with: Dysphoria - Thought Process Patient's Thought Process: Coherent Thought Content: No Passive Wish, No Suicidal Planning, No Homicidal Ideation, No Paranoid Ideation - Sensorium Experiencing Hallucinations: No, Sensorium is Clear Type of Hallucinations: Visual: No, Auditory: No, Command: No - Level of Consciousness Level of Consciousness: Alert Orientation: Yes Intact, Yes Orientated to Time, Yes Orientated to Place, Yes Orientated to Person - Impulse Control Impulse Control: Intact - Insight and Judgement Insight and Judgement: Impaired - Group Participation Particating in Group Activities: No - Medication Management Medication Management Adherence: Partial Assessment - Assessment Merits Inpatient Hospitalization: For Immediate Safety, For Stabilization Inpatient DSM-IV Dx: Unspecified psychotic DO. OCD. Intellectual disability Clinical Impression: 56yo female with PPHx significant for Intellectual disability, OCD, and psychosis presented to [facility] brought in by her immigration case worker. Patient in a period of psychosis which per historical report is focused on paranoia about her sister and fear of getting sick due to germs. This paranoia is associated with decompensation in ability to maintain ADLs and to keep herself safe. It is noted that patient was med non-compliant for ~1 week prior to admission. 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 She has been compliant for the last 2 days. Patient continues to refuse recommended antipsychotic med Abilify and demonstrates patchy compliance with SSRI for resolution of OCD symptoms. Patient will be started on a behavioral modification plan Sunday to address her ongoing inattention to ADLs, poor med compliance, and poor participation in milieu activities and groups due to her perception/paranoia of peers laughing at her disability and germaphobia. Plan - Plan Treatment Plan: Name: PRISCA CLARK Birthdate: 1960 [id number] PLAN: ------ 1. Continue admission to [facility] for safety and symptom mx. 2. 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 3. Zoloft level - 192, range is 30 to 200. Desmethylsertraline - 340, no range 4. Continue to encourage Abilify 5mg po qhs for psychosis. Patient has been refusing recommended antipsychotic med Abilify. 5. Hearing for T.O.O. schedueld this afternoon. 6. Continue Claritin 10mg po qam for congestion. 7. Continue Ensure supplement BID for poor po intake due to paranoia. 8. Family meeting with daughter Rachael, immigration case worker Rick, patient and this provider completed 08/22/16. 9. Patient to participate in milieu activities and groups. Continued Medication Management: Start Medication Medications: Current Medications Acetaminophen (Tylenol Tab*) 650 mg PO Q4H PRN PRN Reason: for pain; or Temp >101 F Al Hydrox/Mg Hydrox/Simethicone (Maalox Plus*) 30 ml PO Q4H PRN PRN Reason: INDIGESTION Aripiprazole (Abilify Tab*) 5 mg PO DAILY [facility] Last Admin: 08/31/16 09:08 Dose: Not Given Cetirizine HCl (Zyrtec*) 10 mg PO DAILY [facility] Last Admin: 08/31/16 15:28 Dose: Not Given Guaifenesin (Robitussin*) 5 ml PO Q6H PRN PRN Reason: COUGH Lorazepam (Ativan Tab(*)) 0.25 mg PO BEDTIME [facility] Last Admin: 08/31/16 22:35 Dose: Not Given Multivitamins (Theragran Tab*) 1 tab PO DAILY [facility] Last Admin: 08/31/16 09:05 Dose: 1 tab Sertraline HCl (Zoloft*) 300 mg PO DAILY [facility] Last Admin: 08/31/16 09:05 Dose: 300 mg - Discharge Plan Discharge Plan: Outpatient Follow Up Outpatient Program: Luci Melgoza [facility]
[2016-09-01] MEDS: Vitamin THERAPEUTIC TAB PO SCH (13:15)
[2016-09-01] MEDS: Cetirizine* 10 MG TAB PO SCH (13:15)
[2016-09-01] MEDS: Sertraline* 100 MG TAB PO SCH ×2 (13:15→17:55)
[2016-09-01] MEDS: ARIPiprazole TAB* 5 MG PO SCH ×2 (13:15→17:55)
[2016-09-01] MEDS ORDERED: Haloperidol INJ IV/IM* 5 MG/ML AMP IM PRN (16:11)
[2016-09-02] MEDS: Vitamin THERAPEUTIC TAB PO SCH (09:21)
[2016-09-02] MEDS: Cetirizine* 10 MG TAB PO SCH (10:22)
[2016-09-02] MEDS: Sertraline* 100 MG TAB PO SCH (10:22)
[2016-09-02] MEDS: ARIPiprazole TAB* 5 MG PO SCH (20:15)
[2016-09-03] MEDS: Sertraline* 100 MG TAB PO SCH (09:08)
[2016-09-03] MEDS: Cetirizine* 10 MG TAB PO SCH (09:08)
[2016-09-03] MEDS: Vitamin THERAPEUTIC TAB PO SCH (09:08)
[2016-09-03] MEDS: ARIPiprazole TAB* 5 MG PO SCH (20:08)
[2016-09-04] MEDS: Vitamin THERAPEUTIC TAB PO SCH (09:10)
[2016-09-04] MEDS: Cetirizine* 10 MG TAB PO SCH (09:10)
[2016-09-04] MEDS: Sertraline* 100 MG TAB PO SCH (09:10)
[2016-09-04] MEDS ORDERED: ARIPiprazole TAB* 2 MG PO ONE (14:05)
--- NOTE | 2016-09-04 14:11 | PN ---
Subjective - Subjective Service Type: [id number] Hosp care 15 min low complexity Subjective: Patient continues to walk the unit primarily, but is able to sit for groups. Her affect is less anxious. She has been med compliant since TOO hearing on Sunday afternoon. Patient reports no s/e's. Patient reports good sleep, but continues to have poor PO intake. Patient is focused today on going home. She does not report paranoid ideations on this interview. She did endorse that staff likely was not going in her room or trying to hurt her. She also backtracked on her statement that she was being monitored by a camera in her room. There is concern for her decreased PO intake. Patient reports compliance with BID ensure. She does continue to express germaphobic issues. Patient reports feeling she would be more comfortable at home. She is in less distress than when seen Sunday. Patient reports no pain on urination or issues with urination. She does report recent hard stools. Patient denies SI/HI and AH/VH. Objective - Appearance Appearance: Well Developed/Nourished Dysmorphic Features: No Hygiene: Normal Grooming: Fairly Well Kept - Behavior Psychomotor Activities: Normal Exhibits Abnormal Movement: No - Attitude and Relatedness Attitude and Relatedness: Cooperative Eye Contact: Fair - Speech Quality: Unpressured Latencies: Normal Quantity: Appropriate - Mood Patient's Decription of Mood: "Okay" - Affect Observed Affect: Fair Affect Consistent with: Euthymia - Thought Process Patient's Thought Process: Coherent Thought Content: No Passive Wish, No Suicidal Planning, No Homicidal Ideation, No Paranoid Ideation - Sensorium Experiencing Hallucinations: No, Sensorium is Clear Type of Hallucinations: Visual: No, Auditory: No, Command: No - Level of Consciousness Level of Consciousness: Alert Orientation: Yes Intact, Yes Orientated to Time, Yes Orientated to Place, Yes Orientated to Person - Impulse Control Impulse Control: Intact - Insight and Judgement Insight and Judgement: Fair - Group Participation Particating in Group Activities: Yes - Medication Management Medication Management Adherence: Yes Assessment - Assessment Merits Inpatient Hospitalization: For Stabilization Inpatient DSM-IV Dx: Unspecified psychotic DO. OCD. Intellectual disability Clinical Impression: 56yo female with PPHx significant for Intellectual disability, OCD, and psychosis presented to [facility] [place] brought in by her special education case manager. Patient in a period of psychosis which per historical report is focused on paranoia about her sister and fear of getting sick due to germs. This paranoia is associated with decompensation in ability to maintain ADLs and to keep herself safe. It is noted that patient was med non-compliant for ~1 week prior to admission. 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 She has been compliant for the last 2 days. Patient continues to refuse recommended antipsychotic med Abilify and demonstrates patchy compliance with SSRI for resolution of OCD symptoms. Patient will be started on a behavioral modification plan Sunday to address her ongoing inattention to ADLs, poor med compliance, and poor participation in milieu activities and groups due to her perception/paranoia of peers laughing at her disability and germaphobia. Plan - Plan Treatment Plan: Name: PRISCA CLARK Birthdate: 1960 [id number] PLAN: ------ 1. Continue admission to [facility] for safety and symptom mx. 2. Floor Layer Helper ordered T.O.O. at 09/01/16 hearing. 3. 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 Zoloft level - 192, range is 30 to 200. Desmethylsertraline - 340, no range 4. Continue to Abilify 5mg po qdailiy for psychosis. Will increase to [id number] po daily for 09/05/16 dose. 5. Will start Colace 100mg po daily stool softener. 6. Continue Claritin 10mg po qam for congestion. 7. Continue Ensure supplement BID for poor PO intake due to paranoia. 8. Would like another meeting with Rick regarding his assessment of patient and her still being able to live alone. 9. Family meeting with daughter Rachael, special education case manager Rick, patient and this provider completed 08/22/16. 10. Patient to participate in milieu activities and groups. Continued Medication Management: Start Medication Medications: Current Medications Acetaminophen (Tylenol Tab*) 650 mg PO Q4H PRN PRN Reason: for pain; or Temp >101 F Al Hydrox/Mg Hydrox/Simethicone (Maalox Plus*) 30 ml PO Q4H PRN PRN Reason: INDIGESTION Aripiprazole (Abilify Tab*) 5 mg PO DAILY [facility] BEDS AT [facility] Cetirizine HCl (Zyrtec*) 10 mg PO DAILY [facility] Last Admin: 09/04/16 09:10 Dose: Not Given Guaifenesin (Robitussin*) 5 ml PO Q6H PRN PRN Reason: COUGH Haloperidol Lactate (Haldol Inj Iv/Im*) 5 mg IM ONCE PRN PRN Reason: Only given if Abilify refused Multivitamins (Theragran Tab*) 1 tab PO DAILY [facility]CLUDE 234 BEDS AT [facility] Last Admin: 09/04/16 09:10 Dose: 1 tab Sertraline HCl (Zoloft*) 200 mg PO DAILY [facility]CLUDE 234 BEDS AT THE [facility] Last Admin: 09/04/16 09:10 Dose: 200 mg - Discharge Plan Discharge Plan: Outpatient Follow Up Outpatient Program: [facility]
[2016-09-04] MEDS ORDERED: Docusate CAP* 100 MG PO PRN (16:00)
[2016-09-05] MEDS ORDERED: ARIPiprazole TAB* 5 MG PO SCH ×3 (09:00)
[2016-09-05] MEDS: Cetirizine* 10 MG TAB PO SCH ×2 (09:31→09:34)
[2016-09-05] MEDS: ARIPiprazole TAB* 5 MG PO SCH (09:31)
[2016-09-05] MEDS: Vitamin THERAPEUTIC TAB PO SCH (09:31)
[2016-09-05] MEDS: Sertraline* 100 MG TAB PO SCH (09:31)
[2016-09-06] MEDS: ARIPiprazole TAB* 5 MG PO SCH (09:29)
[2016-09-06] MEDS: Vitamin THERAPEUTIC TAB PO SCH (09:29)
[2016-09-06] MEDS: Cetirizine* 10 MG TAB PO SCH (09:29)
[2016-09-06] MEDS: Sertraline* 100 MG TAB PO SCH (09:29)
--- NOTE | 2016-09-06 12:01 | PN ---
Subjective - Subjective Service Type: 92271 Hosp care 15 min low complexity Subjective: Patient continues to ambulate the unit with her arms crossed over her chest. During the interview, patient does not discuss any issues with her room or things in her room being touched. She did not voice any issues with germs or believing she will get sick on the unit. Patient is med compliant. She reports good sleep and improving appetite. She has not showered today. Patient did not bring up any fears of germs, but remarked "ok" when prompted to shower. Patient reports feeling her heart is beating faster than usual. She reports drinking only 2 cups of water most days. She was educated that she is likely dehydrated and that this may be the cause of her increased HR. Patient encouraged to increase fluid intake and drink at least 6-8 cups of water per day. Patient acknowledged understanding and was amenable. Patient informed an EKG will be ordered to eval her heart. She was amenable. Objective - Appearance Appearance: Well Developed/Nourished Dysmorphic Features: No Hygiene: Mal-odorous Grooming: Fairly Well Kept - Behavior Psychomotor Activities: Normal Exhibits Abnormal Movement: No - Attitude and Relatedness Attitude and Relatedness: Cooperative Eye Contact: Good - Speech Quality: Unpressured Latencies: Normal Quantity: Appropriate - Mood Patient's Decription of Mood: "Okay" - Affect Observed Affect: Fair - Thought Process Patient's Thought Process: Coherent Thought Content: No Passive Wish, No Suicidal Planning, No Homicidal Ideation, No Paranoid Ideation - Sensorium Experiencing Hallucinations: No, Sensorium is Clear Type of Hallucinations: Visual: No, Auditory: No, Command: No - Level of Consciousness Level of Consciousness: Alert Orientation: Yes Intact, Yes Orientated to Time, Yes Orientated to Place, Yes Orientated to Person - Impulse Control Impulse Control: Intact - Insight and Judgement Insight and Judgement: Fair - Group Participation Particating in Group Activities: Yes - Medication Management Medication Management Adherence: Yes Assessment - Assessment Merits Inpatient Hospitalization: For Immediate Safety, For Stabilization Inpatient DSM-IV Dx: Unspecified psychotic DO. OCD. Intellectual disability Clinical Impression: 56yo female with PPHx significant for Intellectual disability, OCD, and psychosis [place] [facility] [place] [place] her caser. Patient in a period of psychosis which per historical report is focused on paranoia about her sister and fear of getting sick due to germs. This paranoia is associated with decompensation in ability to maintain ADLs and to keep herself safe. It is noted that patient was med non-compliant for ~1 week prior to admission. 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 She has been compliant for the last 2 days. Patient continues to refuse recommended antipsychotic med Abilify and demonstrates patchy compliance with SSRI for resolution of OCD symptoms. Patient will be started on a behavioral modification plan Sunday to address her ongoing inattention to ADLs, poor med compliance, and poor participation in milieu activities and groups due to her perception/paranoia of peers laughing at her disability and germaphobia. Plan - Plan Treatment Plan: Name: PRISCA CLARK Birthdate: 1960 [id number] PLAN: ------ 1. Continue admission [place] [facility] [place] [facility] for [place] and symptom mx. 2. Quality Control Scientist ordered T.O.O. at 09/01/16 hearing. 3. 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 Zoloft level - 192, range is 30 to 200. Desmethylsertraline - 340, no range 4. Continue [id number] po daily for psychosis. 5. Continue Colace 100mg po PRN daily stool softener. 6. Continue Claritin 10mg po qam for congestion. 7. Continue Ensure supplement BID for poor PO intake due to paranoia. 8. Will call caserRick regarding a re-assessment of patient for her still being able to live alone. 9. Family meeting with daughter Rachael, caser Rick, patient and this provider completed 08/22/16. 10. Patient to participate in milieu activities and groups. Medications: Current Medications Acetaminophen (Tylenol Tab*) 650 mg PO Q4H PRN PRN Reason: for pain; or Temp >101 F Al Hydrox/Mg Hydrox/Simethicone (Maalox Plus*) 30 ml PO Q4H PRN PRN Reason: INDIGESTION Aripiprazole (Abilify Tab*) 10 mg PO DAILY [facility] Last Admin: 09/06/16 09:29 Dose: 10 mg Cetirizine HCl (Zyrtec*) 10 mg PO DAILY [facility] Last Admin: 09/06/16 09:29 Dose: 10 mg Docusate Sodium (Colace Cap*) 100 mg PO DAILY PRN PRN Reason: CONSTIPATION Guaifenesin (Robitussin*) 5 ml PO Q6H PRN PRN Reason: COUGH Haloperidol Lactate (Haldol Inj Iv/Im*) 5 mg IM ONCE PRN PRN Reason: Only given if Abilify refused Multivitamins (Theragran Tab*) 1 tab PO DAILY [facility] Last Admin: 09/06/16 09:29 Dose: 1 tab Sertraline HCl (Zoloft*) 200 mg PO DAILY [facility] Last Admin: 09/06/16 09:29 Dose: 200 mg - Discharge Plan Discharge Plan: Outpatient Follow Up Outpatient Program: [facility]
[2016-09-07] MEDS: ARIPiprazole TAB* 5 MG PO SCH (08:37)
[2016-09-07] MEDS: Cetirizine* 10 MG TAB PO SCH (08:37)
[2016-09-07] MEDS: Sertraline* 100 MG TAB PO SCH (08:37)
[2016-09-07] MEDS: Vitamin THERAPEUTIC TAB PO SCH (08:40)
--- NOTE | 2016-09-07 12:08 | PN ---
Subjective - Subjective Service Type: 75390 Hosp care 15 min low complexity Subjective: Patient noted to be less anxious and more engaged in milieu activities. Patient has attended groups, been med compliant, and has been more attentive to ADLs. Patient's affect is noticeably less fearful/anxious. She is less focused on germs and makes no paranoid statements about peers or staff. She reports her mood as "ok". Patient reports good sleep last night. She reports BM are more wnl. She denies med s/e's. Patient informed EKG performed yesterday was nml. She was informed her case mx will be on unit for eval and discharge planning tomorrow at 2:30pm. She denies SI/HI and AH/VH. Objective - Appearance Appearance: Well Developed/Nourished Dysmorphic Features: No Hygiene: Normal Grooming: Fairly Well Kept - Behavior Psychomotor Activities: Normal Exhibits Abnormal Movement: No - Attitude and Relatedness Attitude and Relatedness: Cooperative Eye Contact: Good - Speech Quality: Unpressured Latencies: Normal Quantity: Appropriate - Mood Patient's Decription of Mood: "Okay" - Affect Observed Affect: Fair - Thought Process Patient's Thought Process: Coherent Thought Content: No Passive Wish, No Suicidal Planning, No Homicidal Ideation, No Paranoid Ideation - Sensorium Experiencing Hallucinations: No, Sensorium is Clear Type of Hallucinations: Visual: No, Auditory: No, Command: No - Level of Consciousness Level of Consciousness: Alert Orientation: Yes Intact, Yes Orientated to Time, Yes Orientated to Place, Yes Orientated to Person - Impulse Control Impulse Control: Intact - Insight and Judgement Insight and Judgement: Fair - Group Participation Particating in Group Activities: Yes - Medication Management Medication Management Adherence: Yes Assessment - Assessment Merits Inpatient Hospitalization: For Immediate Safety, For Stabilization Inpatient DSM-IV Dx: Unspecified psychotic DO. OCD. Intellectual disability Clinical Impression: 56yo female with PPHx significant for Intellectual disability, OCD, and psychosis presented to [facility] [place] brought in by her case folder. Patient in a period of psychosis which per historical report is focused on paranoia about her sister and fear of getting sick due to germs. This paranoia is associated with decompensation in ability to maintain ADLs and to keep herself safe. It is noted that patient was med non-compliant for ~1 week prior to admission. 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 She has been compliant for the last 2 days. Patient continues to refuse recommended antipsychotic med Abilify and demonstrates patchy compliance with SSRI for resolution of OCD symptoms. Patient will be started on a behavioral modification plan Sunday to address her ongoing inattention to ADLs, poor med compliance, and poor participation in milieu activities and groups due to her perception/paranoia of peers laughing at her disability and germaphobia. Plan - Plan Treatment Plan: Name: PRISCA CLARK Birthdate: 1960 [id number] PLAN: ------ 1. Continue admission to [facility] for safety and symptom mx. 2. Calender Operator ordered T.O.O. at 09/01/16 hearing. 3. 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 Zoloft level - 192, range is 30 to 200. Desmethylsertraline - 340, no range 4. Continue [id number] po daily for psychosis. 5. Continue Colace 100mg po PRN daily stool softener. 6. Continue Claritin 10mg po qam for congestion. 7. Continue Ensure supplement BID for poor PO intake due to paranoia. 8. Meeting with case folderRick tomorrow at 2:30pm regarding a re-assessment of patient being back at baseline and tentative discharge planning. 9. Family meeting with daughter Rachael, case folder Rick, patient and this provider completed 08/22/16. 10. Patient to participate in milieu activities and groups. Medications: Current Medications Acetaminophen (Tylenol Tab*) 650 mg PO Q4H PRN PRN Reason: for pain; or Temp >101 F Al Hydrox/Mg Hydrox/Simethicone (Maalox Plus*) 30 ml PO Q4H PRN PRN Reason: INDIGESTION Aripiprazole (Abilify Tab*) 10 mg PO DAILY [facility] Last Admin: 09/07/16 08:37 Dose: 10 mg Cetirizine HCl (Zyrtec*) 10 mg PO DAILY [facility] Last Admin: 09/07/16 08:37 Dose: 10 mg Docusate Sodium (Colace Cap*) 100 mg PO DAILY PRN PRN Reason: CONSTIPATION Guaifenesin (Robitussin*) 5 ml PO Q6H PRN PRN Reason: COUGH Haloperidol Lactate (Haldol Inj Iv/Im*) 5 mg IM ONCE PRN PRN Reason: Only given if Abilify refused Multivitamins (Theragran Tab*) 1 tab PO DAILY [facility] Last Admin: 09/07/16 08:40 Dose: 1 tab Sertraline HCl (Zoloft*) 200 mg PO DAILY [facility] Last Admin: 09/07/16 08:37 Dose: 200 mg - Discharge Plan Discharge Plan: Outpatient Follow Up Outpatient Program: [facility]
[2016-09-08] MEDS: ARIPiprazole TAB* 5 MG PO SCH (09:14)
[2016-09-08] MEDS: Sertraline* 100 MG TAB PO SCH (09:14)
[2016-09-08] MEDS: Vitamin THERAPEUTIC TAB PO SCH (09:15)
[2016-09-08] MEDS: Cetirizine* 10 MG TAB PO SCH (09:15)
--- NOTE | 2016-09-08 10:38 | PN ---
Subjective - Subjective Service Type: 02001 Hosp care 15 min low complexity Subjective: Team meeting held today which included patient, her case mx - Rick, and unit SW. Patient's f/u appts and re-activation of community services discussed. Patient bright in affect for meeting and engaged. She acknowledged understanding of her appts and services. Patient amenable to another case mx outside of Rick escorting her home on Sunday, as Rick will be on vacation starting next week. Patient amenable to discharge plan. She again today has expressed no ideations that she may become sick from germs. Also, she's made no paranoid statements regarding staff, her sister , or her home being contaminated. Patient reports "good" mood. Sleep and appetite are wnl. She denies SI/HI and AH/VH. Objective - Appearance Appearance: Well Developed/Nourished Dysmorphic Features: No Hygiene: Normal Grooming: Fairly Well Kept - Behavior Psychomotor Activities: Normal Exhibits Abnormal Movement: No - Attitude and Relatedness Attitude and Relatedness: Cooperative Eye Contact: Fair - Speech Quality: Unpressured Latencies: Normal Quantity: Appropriate - Mood Patient's Decription of Mood: "Good" - Affect Observed Affect: Good Affect Consistent with: Euthymia - Thought Process Patient's Thought Process: Coherent Thought Content: No Passive Wish, No Suicidal Planning, No Homicidal Ideation, No Paranoid Ideation - Sensorium Experiencing Hallucinations: No, Sensorium is Clear Type of Hallucinations: Visual: No, Auditory: No, Command: No - Level of Consciousness Level of Consciousness: Alert Orientation: Yes Intact, Yes Orientated to Time, Yes Orientated to Place, Yes Orientated to Person - Impulse Control Impulse Control: Intact - Insight and Judgement Insight and Judgement: Fair - Group Participation Particating in Group Activities: Yes - Medication Management Medication Management Adherence: Yes Assessment - Assessment Merits Inpatient Hospitalization: For Stabilization Inpatient DSM-IV Dx: Unspecified psychotic DO. OCD. Intellectual disability Clinical Impression: 56yo female with PPHx significant for Intellectual disability, OCD, and psychosis presented to [facility] [place] [place] brought in by her director case. Patient in a period of psychosis which per historical report is focused on paranoia about her sister and fear of getting sick due to germs. This paranoia is associated with decompensation in ability to maintain ADLs and to keep herself safe. It is noted that patient was med non-compliant for ~1 week prior to admission. She has been compliant, court ordered regimen of Zoloft 200mg po daily and Abilify 10mg po daily and is now attentive to ADLs, social and has increased participation in milieu activities and groups due to noticeable reduction in paranoia and germaphobia. Plan - Plan Treatment Plan: Name: PRISCA CLARK Birthdate: 1960 [id number] PLAN: ------ 1. Continue admission to [facility] [place] [place] [facility] for safety and symptom mx. 2. Firmware Software Verification Engineer ordered T.O.O. at 09/01/16 hearing. 3. 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 Zoloft level - 192, range is 30 to 200. Desmethylsertraline - 340, no range 4. Continue [id number] po daily for psychosis. 5. Continue Colace 100mg po PRN daily stool softener. 6. Continue Claritin 10mg po qam for congestion. 7. Continue Ensure supplement BID for poor PO intake due to paranoia. 8. 2:30pm Meeting with case MARIALUISA Tellez, and this provider completed, patient deemed back at baseline and discharge planning completed. 9. Family meeting with daughter Rachael, director case Rick, patient and this provider completed 08/22/16. 10. Patient to participate in milieu activities and groups. Medications: Current Medications Acetaminophen (Tylenol Tab*) 650 mg PO Q4H PRN PRN Reason: for pain; or Temp >101 F Al Hydrox/Mg Hydrox/Simethicone (Maalox Plus*) 30 ml PO Q4H PRN PRN Reason: INDIGESTION Aripiprazole (Abilify Tab*) 10 mg PO DAILY [facility] Last Admin: 09/08/16 09:14 Dose: 10 mg Cetirizine HCl (Zyrtec*) 10 mg PO DAILY [facility] Last Admin: 09/08/16 09:15 Dose: 10 mg Docusate Sodium (Colace Cap*) 100 mg PO DAILY PRN PRN Reason: CONSTIPATION Guaifenesin (Robitussin*) 5 ml PO Q6H PRN PRN Reason: COUGH Haloperidol Lactate (Haldol Inj Iv/Im*) 5 mg IM ONCE PRN PRN Reason: Only given if Abilify refused Multivitamins (Theragran Tab*) 1 tab PO DAILY [facility] Last Admin: 09/08/16 09:15 Dose: 1 tab Sertraline HCl (Zoloft*) 200 mg PO DAILY [facility] Last Admin: 09/08/16 09:14 Dose: 200 mg - Discharge Plan Discharge Plan: Outpatient Follow Up Outpatient Program: [facility]
--- NOTE | 2016-09-08 11:34 | PN ---
MHU: Group Therapy Note - Service Type Service Type: 98514 Group Psychotherapy - Cognitive Behavioral Group Therapy ( CBT):Patient was attentive and participatory in CBT programming this morning, and remained in good behavioral control. Patient expressed positive insights regarding relevant treatment interventions and goals.
[2016-09-09] MEDS: ARIPiprazole TAB* 5 MG PO SCH (08:42)
[2016-09-09] MEDS: Vitamin THERAPEUTIC TAB PO SCH (08:42)
[2016-09-09] MEDS: Sertraline* 100 MG TAB PO SCH (08:42)
[2016-09-09] MEDS: Cetirizine* 10 MG TAB PO SCH (08:43)
[2016-09-10] MEDS: Vitamin THERAPEUTIC TAB PO SCH (08:35)
[2016-09-10] MEDS: ARIPiprazole TAB* 5 MG PO SCH (08:35)
[2016-09-10] MEDS: Sertraline* 100 MG TAB PO SCH (08:35)
[2016-09-10] MEDS: Cetirizine* 10 MG TAB PO SCH (08:35)
[2016-09-11 08:06] VITALS: BP 118/73
[2016-09-11] MEDS: ARIPiprazole TAB* 5 MG PO SCH (09:12)
[2016-09-11] MEDS: Vitamin THERAPEUTIC TAB PO SCH (09:13)
[2016-09-11] MEDS: Sertraline* 100 MG TAB PO SCH (09:13)
[2016-09-11] MEDS: Cetirizine* 10 MG TAB PO SCH (09:13)
--- NOTE | 2016-09-11 10:02 | DS ---
Subjective - Subjective Service Types: 77829 Hosp DC Day Mgmt simple under 30 min Subjective: Patient bright in affect and ready for discharge. She is gathering her belongings on my approach. Her case mx is present on the unit to transport patient home and help her with picking up Rx's and groceries for the week. Patient is noticeably less concerned with germs as she ambulates the unit. She makes no paranoid statements on interview. She denies SI/HI and AH/VH. Objective - Appearance Appearance: Well Developed/Nourished Dysmorphic Features: No Hygiene: Normal Grooming: Fairly Well Kept - Behavior Psychomotor Activities: Normal Exhibits Abnormal Movement: No - Attitude and Relatedness Attitude and Relatedness: Cooperative Eye Contact: Fair - Speech Quality: Unpressured Latencies: Normal Quantity: Appropriate - Mood Patient's Decription of Mood: "Fine" - Affect Observed Affect: Good Affect Consistent with: Euthymia - Thought Process Patient's Thought Process: Coherent Thought Content: No Passive Wish, No Suicidal Planning, No Homicidal Ideation, No Paranoid Ideation - Sensorium Experiencing Hallucinations: No, Sensorium is Clear Type of Hallucinations: Visual: No, Auditory: No, Command: No - Level of Consciousness Level of Consciousness: Alert Orientation: Yes Intact, Yes Orientated to Time, Yes Orientated to Place, Yes Orientated to Person - Impulse Control Impulse Control: Intact - Insight and Judgement Insight and Judgement: Fair - Group Participation Particating in Group Activities: Yes - Medication Management Medication Management Adherence: Yes Treatment Course & Assessment Clinical Course & Impression: HOSPITAL COURSE: 56yo female with PPHx significant for Intellectual disability, OCD, and psychosis [place] [facility] [place] [place] by her showcase trimmer. Patient in a period of psychosis which per historical report is focused on paranoia about her sister and fear of getting sick due to germs. This paranoia is associated with decompensation in ability to maintain ADLs and to keep herself safe. It is noted that patient was med non-compliant for ~1 week prior to admission. This episode triggered by her sister coming into her home and touching things in her home after taking patient grocery shopping. Patient since believes her furniture, food, meds, and water is contaminated. Patient initially tried on high dose Setraline as her germaphobia continued to interfere with her completing daily ADLs. Her compliance with Sertraline 300mg daily was fair, but her paranoia and restricting germaphobia persisted. She had been Rx'd an antipsychotic for paranoia but, due to fear it may kill her, she had not been compliant with it. TOO hearing was scheduled. Patient did not attend. Patient was compliant with the court ordered regimen of Zoloft 200mg po daily and Abilify 10mg po daily. She was noticeably less fearful on the unit and was now attentive to ADLs, was more social and had increased participation in milieu activities and groups due to reduction in paranoia and germaphobia. On day of discharge. Patient bright in affect and ready for discharge. She is gathering her belongings on my approach. Her case mx is present on the unit to transport patient home and help her with picking up Rx's and groceries for the week. Patient is noticeably less concerned with germs as she ambulates the unit. She makes no paranoid statements on interview. She denies SI/HI and AH/VH. Patient is psychiatrically stable and will be discharged home with assistance of her case mx. PERTINENT LABS: Laboratory Tests 08/17/16 08/17/16 08/17/16 12:34 12:34 14:00 WBC 8.2 RBC 4.17 Hgb 12.5 Hct 39 MCV 92 MCH 30 MCHC 32 RDW 13 Plt Count 293 MPV 8 Neut % (Auto) 77.6 Lymph % (Auto) 15.6 L [place] % (Auto) 5.4 Eos % (Auto) 0.4 Baso % (Auto) 1.0 Absolute Neuts (auto) 6.4 Absolute Lymphs (auto) 1.3 Absolute Monos (auto) 0.4 Absolute Eos (auto) 0 Absolute Basos (auto) 0.1 Absolute Nucleated RBC 0.01 Nucleated RBC % 0.1 Sodium 138 Potassium 4.2 Chloride 101 Carbon Dioxide 29 Anion Gap 8 BUN 14 Creatinine 0.76 Est GFR ( Amer) 100.5 Est GFR (Non-Af Amer) 78.2 BUN/Creatinine Ratio 18.4 Glucose 108 H Hemoglobin A1c Calcium 9.8 Total Bilirubin 0.40 AST 19 ALT 9 Alkaline Phosphatase 63 Total Protein 7.4 Albumin 4.5 Globulin 2.9 Albumin/Globulin Ratio 1.6 Triglycerides 83 Cholesterol 217 LDL Cholesterol 152 HDL Cholesterol 48.3 TSH 0.79 Urine Color Yellow Urine Appearance Clear Urine pH 7.0 Ur Specific Wheeler 1.018 Urine Protein Negative Urine Ketones Trace H Urine Blood Negative Urine Nitrate Negative Urine Bilirubin Negative Urine Urobilinogen Negative Ur Leukocyte Esterase Trace H Urine WBC (Auto) 1+(6-10/hpf) H Urine RBC (Auto) Absent Ur Squamous Epith Cells Present H Urine Bacteria Absent Urine Glucose Negative Urine Ascorbic Acid * H Salicylates < 2.50 Urine Opiates Screen Acetaminophen < 15 Ur Barbiturates Screen Ur Phencyclidine Scrn Sertraline Desmethylsertraline Ur Amphetamines Screen U Benzodiazepines Scrn Urine Cocaine Screen U Cannabinoids Screen Serum Alcohol < 10 08/17/16 08/17/16 08/18/16 14:00 17:30 13:34 WBC RBC Hgb Hct MCV MCH MCHC RDW Plt Count MPV Neut % (Auto) Lymph % (Auto) [place] % (Auto) Eos % (Auto) Baso % (Auto) Absolute Neuts (auto) Absolute Lymphs (auto) Absolute Monos (auto) Absolute Eos (auto) Absolute Basos (auto) Absolute Nucleated RBC Nucleated RBC % Sodium Potassium Chloride Carbon Dioxide Anion Gap BUN Creatinine Est GFR ( Amer) Est GFR (Non-Af Amer) BUN/Creatinine Ratio Glucose Hemoglobin A1c 5.9 Calcium Total Bilirubin AST ALT Alkaline Phosphatase Total Protein Albumin Globulin Albumin/Globulin Ratio Triglycerides Cholesterol LDL Cholesterol HDL Cholesterol TSH Urine Color Urine Appearance Urine pH Ur Specific Wheeler Urine Protein Urine Ketones Urine Blood Urine Nitrate Urine Bilirubin Urine Urobilinogen Ur Leukocyte Esterase Urine WBC (Auto) Urine RBC (Auto) Ur Squamous Epith Cells Urine Bacteria Urine Glucose Urine Ascorbic Acid Salicylates Urine Opiates Screen None detected Acetaminophen Ur Barbiturates Screen None detected Ur Phencyclidine Scrn None detected Sertraline 192 Desmethylsertraline 340 Ur Amphetamines Screen None detected U Benzodiazepines Scrn Presumptive positive H Urine Cocaine Screen None detected U Cannabinoids Screen None detected Serum Alcohol Discharge Meds: Medication Instructions Recorded Confirmed Type ARIPiprazole TAB* [Abilify TAB*] 10 mg PO DAILY #30 tab 09/11/16 Rx Cetirizine* [ZyrTEC 10 MG TAB*] 10 mg PO DAILY #30 tab 09/11/16 Rx Docusate CAP* [Colace Cap*] 100 mg PO DAILY PRN #30 cap 09/11/16 Rx Sertraline* [Zoloft*] 200 mg PO DAILY #30 tab 09/11/16 Rx Vitamin THERAPEUTIC TAB* 1 tab PO DAILY #30 tab 09/11/16 Rx [Theragran TAB*] Consultants: none Follow-Up: [facility] referral for med box pre-fill and nursing eval. Appts for within the next 2 weeks scheduled by MARIALUISA for PCP and [facility]. Clear for Discharge: Adequate Clinical Respons, Acceptable Safety Profile Inpatient DSM-IV Dx: Unspecified psychotic DO. OCD. Intellectual disability Discharge Planning - Discharge Planning Discharge Plan: Outpatient Follow Up Out[facility] Program: [facility] Recommendations for Continuing Care: Medication Management Medications: Current Medications Acetaminophen (Tylenol Tab*) 650 mg PO Q4H PRN PRN Reason: for pain; or Temp >101 F Al Hydrox/Mg Hydrox/Simethicone (Maalox Plus*) 30 ml PO Q4H PRN PRN Reason: INDIGESTION Last Admin: 09/09/16 08:41 Dose: 30 ml Aripiprazole (Abilify Tab*) 10 mg PO DAILY [facility] Last Admin: 09/11/16 09:12 Dose: 10 mg Cetirizine HCl (Zyrtec*) 10 mg PO DAILY [facility] Last Admin: 09/11/16 09:13 Dose: 10 mg Docusate Sodium (Colace Cap*) 100 mg PO DAILY PRN PRN Reason: CONSTIPATION Guaifenesin (Robitussin*) 5 ml PO Q6H PRN PRN Reason: COUGH Haloperidol Lactate (Haldol Inj Iv/Im*) 5 mg IM ONCE PRN PRN Reason: Only given if Abilify refused Multivitamins (Theragran Tab*) 1 tab PO DAILY [facility] Last Admin: 09/11/16 09:13 Dose: 1 tab Sertraline HCl (Zoloft*) 200 mg PO DAILY [facility] Last Admin: 09/11/16 09:13 Dose: 200 mg Discharge Planning: Prescriptions provided for discharge [x] Yes [] No Follow up care details as per social work arrangements. Patient response to discharge plan: [] eager for discharge [x] agreeable with discharge plan [] ambivalent about discharge [] disagrees with discharge today
== END 2016-09-11 11:00 | disposition home or self-care (01) | DRG 885 ==
LOC: ED 11:28 → BSU 16:03
PROVIDERS: ADMIT Psychiatry & Neurology Psychiatry; ATTEND Psychiatry & Neurology Psychiatry
PROC: GZHZZZZ Group Psychotherapy (ICD-10-PCS; principal; 2016-08-21)
DX: F29 Unspecified psychosis not due to a substance or known physiological condition (principal); F20.9 Schizophrenia, unspecified; F71 Moderate intellectual disabilities; F31.9 Bipolar disorder, unspecified; H91.90 Unspecified hearing loss, unspecified ear; F41.9 Anxiety disorder, unspecified; F42.9 Obsessive-compulsive disorder, unspecified; F40.228 Other natural environment type phobia; F22 Delusional disorders; F43.20 Adjustment disorder, unspecified; R40.2412 Glasgow coma scale score 13-15, at arrival to emergency department; Z91.14 Patient's other noncompliance with medication regimen; Z88.0 Allergy status to penicillin; Z88.2 Allergy status to sulfonamides; Z88.8 Allergy status to other drugs, medicaments and biological substances; Z86.718 Personal history of other venous thrombosis and embolism; Z87.440 Personal history of urinary (tract) infections; Z82.49 Family history of ischemic heart disease and other diseases of the circulatory system; Z90.710 Acquired absence of both cervix and uterus
CPT/HCPCS: 36415; 71020; 80053; 80061; 80307; 80320; 80329; 80332; 81003; 81015; 83036; 84443; 85025; 87086; 90853; 93005; 99222; 99231; 99238; A9270-GY; G0480; J1630

== ENCOUNTER 2016-09-12 10:18 | Emergency (ER) | payer MEDICARE, MEDICAID ==
--- NOTE | 2016-09-12 11:10 | RAD ---
Indication: Dizziness; near syncope. Comparison: October 28, 2015 Technique: Noncontrast CT vertex of skull through foramen magnum. Report: Unremarkable cerebral sulci, ventricles, and basal cisterns. Unchanged mild decreased density in the periventricular white matter of the cerebral hemispheres most prominent adjacent to the LEFT frontal horn most suggestive of mild chronic small vessel ischemic disease. Low burden of bilateral basal ganglia calcifications. Negative for appiah matter white matter obscuration, intra or extra-axial hemorrhage, or mass effect. No suspicious calvarial or skull base lesion evident. Indolent thickening of the inner table of the frontal bone noted. Clear visualized paranasal sinuses and mastoid air spaces. Unremarkable scalp. IMPRESSION: 1. Stigmata of mild probable chronic small vessel ischemic disease. 2. No acute intracranial process evident.
--- NOTE | 2016-09-12 11:15 | RAD ---
Indication: Dizziness; near syncope. History of bronchitis. Comparison: August 19, 2016 Technique: Upright AP 1047 hours Report: Mildly elevated lung volumes. No alveolar consolidation, focal pulmonary lesion, pleural effusion, pneumothorax. The heart, pulmonary vasculature, and mediastinal contours are unremarkable. IMPRESSION: 1. No evidence for acute intrathoracic disease. 2. Mildly elevated lung volumes favoring chronic obstructive lung disease given history of bronchitis.
[2016-09-12 11:35] LABS: Hematocrit 37 % (35-47); Hemoglobin 12.1 g/dl (12.0-16.0); Mean Corpuscular HGB Conc 32 g/dl (31-36); Mean Corpuscular Hemoglobin 31 pg (27-31); Mean Corpuscular Volume 95 fL (80-97); Mean Platelet Volume 10 um3 (7.4-10.4); Red Blood Count 3.92 10^6/ul (4.0-5.4); Red Cell Distribution Width 14 % (10.5-15); White Blood Count 5.8 10^3/ul (3.5-10.8)
[2016-09-12 11:51] LABS: ALT 10 U/L (7-52); AST 20 U/L (13-39); Albumin 4.4 g/dL (3.2-5.2); Alkaline Phosphatase 52 U/L (34-104); Anion Gap 6 mmol/L (2-11); BUN/Creatinine Ratio 18.8 (8-20); Blood Urea Nitrogen 13 mg/dL (6-24); C Reactive Protein 4.02 mg/L (< 5.00); CO2 Carbon Dioxide 30 mmol/L (22-32); Calcium 9.7 mg/dL (8.6-10.3); Chloride 104 mmol/L (101-111); EGFR African American 112.4 (>60); EGFR Non-African American 87.4 (>60); Globulin 2.4 g/dL (2-4); Glucose 98 mg/dL (70-100); Magnesium 2.3 mg/dL (1.9-2.7); Potassium 3.9 mmol/L (3.5-5.0); Sodium 140 mmol/L (133-145); Total Protein 6.8 g/dL (6.4-8.9)
[2016-09-12 12:19] LABS: Alcohol < 10 mg/dL (<10)
[2016-09-12 12:45] LABS: Urine Bilirubin Negative (Negative); Urine Glucose Negative (Negative); Urine Nitrite Negative (Negative)
[2016-09-12 12:57] LABS: Benzodiazepine Urine Screen None Detected (None Detect)
[2016-09-12 15:36] VITALS: BP 154/64
--- NOTE | 2016-09-12 18:20 | ED ---
Kevin Light Auryana, scribed for Stanley Cummings MD on 09/12/16 at 1046 . Dizziness - HPI Summary HPI Summary: 56 year old female presents to the ED with 2 episodes of dizziness starting this morning. Patient states that she went to bend down to pickup papers and when she stood back up she felt dizzy. Patient characterizes the dizziness as a near syncope feeling - "felt like she was going to black out". SHe denies any chest pain, SOB, VALDIVIA, blurry vision, abdominal pain, nausea, vomiting, or diarrhea. PMHx is significant depression. - History Of Current Complaint Stated Complaint: DIZZINESS Time Seen by Provider: 09/12/16 10:32 Hx Obtained From: Patient Onset/Duration: Suddenly Severity Initially: Moderate Severity Currently: Mild Character: Dizzy - near syncope Aggravating Factor(s): Position Change Associated Signs And Symptoms: Positive: Negative. Negative: Nausea, Vomiting, Diarrhea, Chest Pain, SOB, Visual Changes - Risk Factors Cardiac Risk Factors: Negative CVA Risk Factor: Negative - Allergies/Home Medications Allergies/Adverse Reactions: Allergies Allergy/AdvReac Type Severity Reaction Status Date / Time Benzonatate [From Tessalon] Allergy Hives Verified 08/17/16 17:45 Penicillin G Allergy Hives/Diff. Verified 08/17/16 17:45 Breathing/I tching Sulfa Drugs Allergy Hives Verified 08/17/16 17:45 PMH/Surg Hx/FS Hx/Imm Hx Endocrine/Hematology History: Denies: Hx Diabetes, Hx Thyroid Disease Cardiovascular History: Reports: Hx Deep Vein Thrombosis Denies: Hx Hypertension, Hx Pacemaker/ICD Respiratory History: Denies: Hx Asthma, Hx Chronic Obstructive Pulmonary Disease (COPD) GI History: Denies: Hx Ulcer History: Reports: Hx Kidney Infection, Other Problems/Disorders - Recurrent UTI's. Denies: Hx Renal Disease Sensory History: Reports: Hx Hearing Problem - currently has an ear infection Denies: Hx Cataracts, Hx Contacts or Glasses, Hx Hearing Aid Opthamlomology History: Denies: Hx Cataracts, Hx Contacts or Glasses Neurological History: Reports: Hx Developmental Delay, Hx Headaches, Hx Seizures - years ago, last seizure was when she was 3 Denies: Hx Dementia Psychiatric History: Reports: Hx Anxiety, Hx Depression, Hx Inpatient Treatment , Hx Community Mental Health Tx, Hx Schizophrenia, Hx Bipolar Disorder, Other Psychiatric Issues/Disorders - hx OCD, adjustment d/o Denies: Hx Eating Disorder, Hx of Violent Episodes Against Others - Surgical History Surgery Procedure, Year, and Place: appy. c section Infectious Disease History: Denies: Hx Clostridium Difficile, Hx Hepatitis, Hx Human Immunodeficiency Virus (HIV), Hx of Known/Suspected MRSA, Hx Shingles, Hx Tuberculosis, History Other Infectious Disease, Traveled Outside the [place] in Last 30 Days - Family History Known Family History: Positive: Hypertension - Social History Alcohol Use: None Hx Substance Use: No Substance Use Type: Reports: None Hx Tobacco Use: No Smoking Status (MU): Never Smoked Tobacco Review of Systems Constitutional: Negative Eyes: Negative Negative: Blurred Vision ENT: Negative Cardiovascular: Negative Negative: Chest Pain Respiratory: Negative Negative: Shortness Of Breath Gastrointestinal: Negative Negative: Abdominal Pain, Vomiting, Diarrhea, Nausea Genitourinary: Negative Musculoskeletal: Negative Skin: Negative Neurological: Negative Negative: Headache Psychological: Normal All Other Systems Reviewed And Are Negative: Yes Physical Exam - Summary Physical Exam Summary: VITAL SIGNS: Reviewed. GENERAL: ~Patient is a well-developed and nourished FEMALE who is lying comfortable in the stretcher. ~Patient is not in any acute respiratory distress. HEAD AND FACE: No signs of trauma. ~No ecchymosis, hematomas or skull depressions. No sinus tenderness. EYES: PERRLA, EOMI x 2, No injected conjunctiva, no nystagmus. No photophobia. EARS: Hearing grossly intact. Ear canals and tympanic membranes are within normal limits. MOUTH: Oropharynx within normal limits. NECK: Supple, trachea is midline, no adenopathy, no JVD, no carotid bruit, no c- spine tenderness, neck with full ROM. No meningeal signs, no Kernig's or brudzinskis signs. CHEST: Symmetric, no tenderness at palpation LUNGS: Clear to auscultation bilaterally. No wheezing or crackles. CVS: Regular rate and rhythm, S1 and S2 present, no murmurs or gallops appreciated. ABDOMEN: Soft, non-tender. No signs of distention. No rebound no guarding, and no masses palpated. Bowel sounds are normal. EXTREMITIES: FROM in all major joints, no edema, no cyanosis or clubbing. NEURO: Alert and oriented x 3. No acute neurological deficits. Speech is normal and follows commands. SKIN: Dry and warm Triage Information Reviewed: Yes Vital Signs On Initial Exam: Initial Vitals BP 115/62 09/12/16 10:36 Vital Signs Reviewed: Yes Diagnostics - Vital Signs Vital Signs Temp Pulse Resp BP Pulse Ox 09/12/16 15:35 98.2 F 88 18 154/64 09/12/16 14:30 79 19 97 09/12/16 14:00 59 15 116/74 97 09/12/16 13:30 62 14 115/62 98 09/12/16 13:00 55 15 116/73 97 09/12/16 12:30 19 118/66 09/12/16 12:00 61 16 117/68 97 09/12/16 11:30 65 14 115/69 98 09/12/16 11:10 83 123/79 09/12/16 11:07 82 19 123/79 97 09/12/16 11:06 71 17 123/77 98 09/12/16 11:03 71 14 120/74 95 09/12/16 11:00 75 16 98 09/12/16 10:42 98.4 F 79 18 115/62 99 09/12/16 10:37 98.4 F 79 13 115/52 97 09/12/16 10:36 115/62 - Laboratory Lab Results: Lab Results 09/12/16 09/12/16 09/12/16 Range/Units 11:20 11:20 11:20 WBC 5.8 (3.5-10.8) 10^3/ul RBC 3.92 L (4.0-5.4) 10^6/ul Hgb 12.1 (12.0-16.0) g/dl Hct 37 (35-47) % MCV 95 (80-97) fL MCH 31 (27-31) pg MCHC 32 (31-36) g/dl RDW 14 (10.5-15) % Plt Count 177 (150-450) 10^3/ul MPV 10 (7.4-10.4) um3 Neut % (Auto) 72.7 (38-83) % Lymph % (Auto) 17.2 L (25-47) % [place] % (Auto) 7.3 (1-9) % Eos % (Auto) 1.6 (0-6) % Baso % (Auto) 1.2 (0-2) % Absolute Neuts (auto) 4.2 (1.5-7.7) 10^3/ul Absolute Lymphs (auto) 1.0 (1.0-4.8) 10^3/ul Absolute Monos (auto) 0.4 (0-0.8) 10^3/ul Absolute Eos (auto) 0.1 (0-0.6) 10^3/ul Absolute Basos (auto) 0.1 (0-0.2) 10^3/ul Absolute Nucleated RBC 0 10^3/ul Nucleated RBC % 0.1 Sodium 140 (133-145) mmol/L Potassium 3.9 (3.5-5.0) mmol/L Chloride 104 (101-111) mmol/L Carbon Dioxide 30 (22-32) mmol/L Anion Gap 6 (2-11) mmol/L BUN 13 (6-24) mg/dL Creatinine 0.69 (0.51-0.95) mg/dL Est GFR ( Amer) 112.4 (>60) Est GFR (Non-Af Amer) 87.4 (>60) BUN/Creatinine Ratio 18.8 (8-20) Glucose 98 (70-100) mg/dL Lactic Acid 0.7 (0.5-2.0) mmol/L Calcium 9.7 (8.6-10.3) mg/dL Magnesium 2.3 (1.9-2.7) mg/dL Total Bilirubin 0.30 (0.2-1.0) mg/dL AST 20 (13-39) U/L ALT 10 (7-52) U/L Alkaline Phosphatase 52 (34-104) U/L Troponin I 0.00 (<0.04) ng/mL C-Reactive Protein 4.02 (< 5.00) mg/L B-Natriuretic Peptide ( - 100) pg/mL Total Protein 6.8 (6.4-8.9) g/dL Albumin 4.4 (3.2-5.2) g/dL Globulin 2.4 (2-4) g/dL Albumin/Globulin Ratio 1.8 (1-3) TSH 1.30 (0.34-5.60) mcIU/mL Urine Color Urine Appearance Urine pH (5-9) Ur Specific [place] (1.010-1.030) Urine Protein (Negative) Urine Ketones (Negative) Urine Blood (Negative) Urine Nitrate (Negative) Urine Bilirubin (Negative) Urine Urobilinogen (Negative) Ur Leukocyte Esterase (Negative) Urine WBC (Auto) (Absent) Ur Squamous Epith Cells (Absent) Urine Glucose (Negative) Urine Opiates Screen (None Detect) Ur Barbiturates Screen (None Detect) Ur Phencyclidine Scrn (None Detect) Ur Amphetamines Screen (None Detect) U Benzodiazepines Scrn (None Detect) Urine Cocaine Screen (None Detect) U Cannabinoids Screen (None Detect) Serum Alcohol < 10 (<10) mg/dL 09/12/16 09/12/16 09/12/16 Range/Units 11:20 12:23 12:23 WBC (3.5-10.8) 10^3/ul RBC (4.0-5.4) 10^6/ul Hgb (12.0-16.0) g/dl Hct (35-47) % MCV (80-97) fL MCH (27-31) pg MCHC (31-36) g/dl RDW (10.5-15) % Plt Count (150-450) 10^3/ul MPV (7.4-10.4) um3 Neut % (Auto) (38-83) % Lymph % (Auto) (25-47) % [place] % (Auto) (1-9) % Eos % (Auto) (0-6) % Baso % (Auto) (0-2) % Absolute Neuts (auto) (1.5-7.7) 10^3/ul Absolute Lymphs (auto) (1.0-4.8) 10^3/ul Absolute Monos (auto) (0-0.8) 10^3/ul Absolute Eos (auto) (0-0.6) 10^3/ul Absolute Basos (auto) (0-0.2) 10^3/ul Absolute Nucleated RBC 10^3/ul Nucleated RBC % Sodium (133-145) mmol/L Potassium (3.5-5.0) mmol/L Chloride (101-111) mmol/L Carbon Dioxide (22-32) mmol/L Anion Gap (2-11) mmol/L BUN (6-24) mg/dL Creatinine (0.51-0.95) mg/dL Est GFR ( Amer) (>60) Est GFR (Non-Af Amer) (>60) BUN/Creatinine Ratio (8-20) Glucose (70-100) mg/dL Lactic Acid (0.5-2.0) mmol/L Calcium (8.6-10.3) mg/dL Magnesium (1.9-2.7) mg/dL Total Bilirubin (0.2-1.0) mg/dL AST (13-39) U/L ALT (7-52) U/L Alkaline Phosphatase (34-104) U/L Troponin I (<0.04) ng/mL C-Reactive Protein (< 5.00) mg/L B-Natriuretic Peptide 48 ( - 100) pg/mL Total Protein (6.4-8.9) g/dL Albumin (3.2-5.2) g/dL Globulin (2-4) g/dL Albumin/Globulin Ratio (1-3) TSH (0.34-5.60) mcIU/mL Urine Color Yellow Urine Appearance Clear Urine pH 8.0 (5-9) Ur Specific [place] 1.008 L (1.010-1.030) Urine Protein Negative (Negative) Urine Ketones Negative (Negative) Urine Blood Negative (Negative) Urine Nitrate Negative (Negative) Urine Bilirubin Negative (Negative) Urine Urobilinogen Negative (Negative) Ur Leukocyte Esterase Trace H (Negative) Urine WBC (Auto) 1+(6-10/hpf) H (Absent) Ur Squamous Epith Cells Present H (Absent) Urine Glucose Negative (Negative) Urine Opiates Screen None detected (None Detect) Ur Barbiturates Screen None detected (None Detect) Ur Phencyclidine Scrn None detected (None Detect) Ur Amphetamines Screen None detected (None Detect) U Benzodiazepines Scrn None detected (None Detect) Urine Cocaine Screen None detected (None Detect) U Cannabinoids Screen None detected (None Detect) Serum Alcohol (<10) mg/dL Result Diagrams: 09/12/16 11:20 09/12/16 11:20 Lab Statement: Any lab studies that have been ordered have been reviewed, and results considered in the medical decision making process. - Radiology CXR Xray Interpretation: Positive (See Comments) - IMPRESSION: 1. No evidence for acute intrathoracic disease. 2. Mildly elevated lung volumes favoring chronic obstructive lung disease given history of bronchitis. Radiology Interpretation Completed By: Radiologist - CT Brain CT CT Interpretation: Positive (See Comments) - IMPRESSION: 1. Stigmata of mild probable chronic small vessel ischemic disease. 2. No acute intracranial process evident. CT Interpretation Completed By: Radiologist - EKG 11:53 EKG Interpretation: NSR @ 62 BPM, no ST elevation EKG Comparison: No Significant Change Dizzy Course/Dx - Course Assessment/Plan: 56 year old female presents to the ED with 2 episodes of dizziness starting this morning. Patient states that she went to bend down to pickup papers and when she stood back up she felt dizzy. Patient characterizes the dizziness as a near syncope feeling - "felt like she was going to black out ". SHe denies any chest pain, SOB, VALDIVIA, blurry vision, abdominal pain, nausea, vomiting, or diarrhea. PMHx is significant depression. EKG - NSR @ 62 BPM, no ST elevation. Test results WNL. UA- contaminated therefore we will send for urine for cultures. CT BRAIN - IMPRESSION: No acute intracranial process evident. CXR - IMPRESSION: 1. No evidence for acute intrathoracic disease. In ED course, patient was given IV fluids. Patient ambulating in ED without any dizziness, SOB, or CP. It seems that all her symptoms have resolved. Therefore patient will be discharged home with follow up to PCP. Patient is hemodynamically stable and A&O x3. - Diagnoses Differential Diagnosis/HQI/PQRI: Anxiety, Labyrinthitis, Meniere's Disease Provider Diagnoses: Dizziness Discharge - Discharge Plan Condition: Stable Disposition: HOME Patient Education Materials: Dizziness (ED) Referrals: Maurilio Gonzalez MD [Primary Care Provider] - 2 Days The documentation as recorded by the Kevin marques Auryana accurately reflects the service I personally performed and the decisions made by me, Stanley Cummings MD.
== END 2016-09-12 15:35 | disposition home or self-care (01) ==
LOC: ED 10:18
DX: R42 Dizziness and giddiness (principal); Z86.718 Personal history of other venous thrombosis and embolism; Z86.59 Personal history of other mental and behavioral disorders
CPT/HCPCS: 36415; 70450; 71010; 80053; 80307; 80320; 81003; 81015; 83605; 83735; 83880; 84443; 84484; 85025; 86140; 87086; 93005; 99284; G0480

== ENCOUNTER 2017-03-29 12:55 | Emergency (ER) | payer MEDICAID, MEDICARE ==
--- NOTE | 2017-03-29 15:54 | RAD ---
HISTORY: Confusion COMPARISONS: September 12, 2016 TECHNIQUE: Multiple contiguous axial CT scans were obtained of the head without intravenous contrast. FINDINGS: HEMORRHAGE/INFARCT: There is no hemorrhage or acute infarct. MASSES/SHIFT: There is no mass or shift. EXTRA-AXIAL SPACES: There are no extra-axial fluid collections. SULCI AND VENTRICLES: The sulci and ventricles are normal in size and position for the patient's stated age. CEREBRUM: There is hypoattenuation of the periventricular and subcortical white matter. There are chronic lacunar infarcts of the basal ganglia bilaterally. BRAINSTEM: There are no focal parenchymal abnormalities. CEREBELLUM: There are no focal parenchymal abnormalities. VESSELS: The vessels are grossly normal. PARANASAL SINUSES: The paranasal sinuses are clear. ORBITS: The orbits are unremarkable. BONES AND SOFT TISSUE: No bone or soft tissue abnormalities are noted. OTHER: None IMPRESSION: 1. NO ACUTE INTRACRANIAL PATHOLOGY. 2. CHRONIC SMALL VESSEL ISCHEMIC CHANGE WITH CHRONIC LACUNAR INFARCTS OF THE BASAL GANGLIA BILATERALLY
[2017-03-29 16:05] LABS: ABS Basophils 0.1 10^3/ul (0-0.2); ABS Eosinophils 0.1 10^3/ul (0-0.6); ABS Lymphocytes 1.5 10^3/ul (1.0-4.8); ABS Monocytes 0.4 10^3/ul (0-0.8); ABS Neutrophils 3.6 10^3/ul (1.5-7.7); ABS Nucleated RBC 0 10^3/ul; Eosinophil % 1.9 % (0-6); Hematocrit 38 % (35-47); Hemoglobin 12.9 g/dl (12.0-16.0); Lymphocyte % 26.4 % (25-47); Mean Corpuscular HGB Conc 34 g/dl (31-36); Mean Corpuscular Hemoglobin 31 pg (27-31); Mean Corpuscular Volume 94 fL (80-97); Mean Platelet Volume 9 um3 (7.4-10.4); Nucleated Red Blood Cells % 0; Platelet Count 234 10^3/ul (150-450); Red Cell Distribution Width 13 % (10.5-15); White Blood Count 5.6 10^3/ul (3.5-10.8)
[2017-03-29 16:18] LABS: EGFR Non-African American 81.9 (>60)
[2017-03-29 18:12] VITALS: BP 129/87
--- NOTE | 2017-03-29 18:29 | ED ---
Ant Light Gabriel, scribed for Stanley Cummings MD on 03/29/17 at 1512 . Psychiatric Complaint - HPI Summary HPI Summary: This patient is a 56 year old F presenting to [facility] accompanied by her nurse with a chief complaint of increased confusion lasting the last few weeks. Patient denies VALDIVIA and dizziness. The patients nurse states she is non-compliant with her psychiatric medication and she is wondering if she is taking to correct medication and if the dosing is accurate. Additionally she expressed concern hat she does not have a good psychiatrist and is requesting a mental health evaluation. Patient believes she has a kidney infection but it has not been diagnosed and she is not on any medication. - History Of Current Complaint Chief Complaint: EDAltMentalStatus Time Seen by Provider: 03/29/17 15:03 Accompanied By: nurse Hx Obtained From: Patient, Family/It Account Manager Onset/Duration: Still Present Timing: Constant Severity Initially: Mild Severity Currently: Mild Aggravating Factor(s): Medication Non-compliance Has Suicidal: Denies: Thoughts, With A Plan - Allergies/Home Medications Allergies/Adverse Reactions: Allergies Allergy/AdvReac Type Severity Reaction Status Date / Time Benzonatate [From Tessalon] Allergy Hives Verified 08/17/16 17:45 Penicillin G Allergy Hives/Diff. Verified 08/17/16 17:45 Breathing/I tching Sulfa Drugs Allergy Hives Verified 08/17/16 17:45 PMH/Surg Hx/FS Hx/Imm Hx Endocrine/Hematology History: Denies: Hx Diabetes, Hx Thyroid Disease Cardiovascular History: Reports: Hx Deep Vein Thrombosis Denies: Hx Hypertension, Hx Pacemaker/ICD Respiratory History: Denies: Hx Asthma, Hx Chronic Obstructive Pulmonary Disease (COPD) GI History: Denies: Hx Ulcer History: Reports: Hx Kidney Infection, Other Problems/Disorders - Recurrent UTI's. Denies: Hx Renal Disease Sensory History: Reports: Hx Hearing Problem - currently has an ear infection Denies: Hx Cataracts, Hx Contacts or Glasses, Hx Hearing Aid Opthamlomology History: Denies: Hx Cataracts, Hx Contacts or Glasses Neurological History: Reports: Hx Developmental Delay, Hx Headaches, Hx Seizures - years ago, last seizure was when she was 3 Denies: Hx Dementia Psychiatric History: Reports: Hx Anxiety, Hx Depression, Hx Inpatient Treatment , Hx Community Mental Health Tx, Hx Schizophrenia, Hx Bipolar Disorder, Other Psychiatric Issues/Disorders - hx OCD, adjustment d/o Denies: Hx Eating Disorder, Hx of Violent Episodes Against Others - Surgical History Surgery Procedure, Year, and Place: appy. c section Infectious Disease History: No Infectious Disease History: Denies: Hx Clostridium Difficile, Hx Hepatitis, Hx Human Immunodeficiency Virus (HIV), Hx of Known/Suspected MRSA, Hx Shingles, Hx Tuberculosis, History Other Infectious Disease, Traveled Outside the [place] in Last 30 Days - Family History Known Family History: Positive: Hypertension - Social History Alcohol Use: None Hx Substance Use: No Substance Use Type: Reports: None Hx Tobacco Use: No Smoking Status (MU): Never Smoked Tobacco Review of Systems Negative: Fever Neurological: Negative - dizziness Negative: Headache Positive: Other - confusion All Other Systems Reviewed And Are Negative: Yes Physical Exam - Summary Physical Exam Summary: VITAL SIGNS: Reviewed. GENERAL: Patient is an elderly female who looks older than her age who is lying comfortable in the stretcher. Patient appears unkempt. HEAD AND FACE: No signs of trauma. No ecchymosis, hematomas or skull depressions. No sinus tenderness. EYES: PERRLA, EOMI x 2, No injected conjunctiva, no nystagmus. EARS: Hearing grossly intact. Ear canals and tympanic membranes are within normal limits. MOUTH: multiple teeth missing NECK: Supple, trachea is midline, no adenopathy, no JVD, no carotid bruit, no c- spine tenderness, neck with full ROM. CHEST: Symmetric, no tenderness at palpation LUNGS: Clear to auscultation bilaterally. No wheezing or crackles. CVS: Regular rate and rhythm, S1 and S2 present, no murmurs or gallops appreciated. ABDOMEN: Soft, non-tender. No signs of distention. No rebound no guarding, and no masses palpated. Bowel sounds are normal. EXTREMITIES: FROM in all major joints, no edema, no cyanosis or clubbing. NEURO: Alert and oriented x 3. No acute neurological deficits. Speech is normal and follows commands. SKIN: Dry and warm Triage Information Reviewed: Yes Vital Signs On Initial Exam: Initial Vitals Temp Pulse Resp BP Pulse Ox 97.6 F 72 16 131/75 98 03/29/17 13:03/29/17 13:03/29/17 13:03/29/17 13:01 03/29/17 13:01 Vital Signs Reviewed: Yes Diagnostics - Vital Signs Vital Signs Temp Pulse Resp BP Pulse Ox 03/29/17 13:01 97.6 F 72 16 131/75 98 - Laboratory Lab Results: Lab Results 03/29/17 03/29/17 Range/Units 15:55 15:55 WBC 5.6 (3.5-10.8) 10^3/ul RBC 4.10 (4.0-5.4) 10^6/ul Hgb 12.9 (12.0-16.0) g/dl Hct 38 (35-47) % MCV 94 (80-97) fL MCH 31 (27-31) pg MCHC 34 (31-36) g/dl RDW 13 (10.5-15) % Plt Count 234 (150-450) 10^3/ul MPV 9 (7.4-10.4) um3 Neut % (Auto) 64.4 (38-83) % Lymph % (Auto) 26.4 (25-47) % [place] % (Auto) 6.3 (1-9) % Eos % (Auto) 1.9 (0-6) % Baso % (Auto) 1.0 (0-2) % Absolute Neuts (auto) 3.6 (1.5-7.7) 10^3/ul Absolute Lymphs (auto) 1.5 (1.0-4.8) 10^3/ul Absolute Monos (auto) 0.4 (0-0.8) 10^3/ul Absolute Eos (auto) 0.1 (0-0.6) 10^3/ul Absolute Basos (auto) 0.1 (0-0.2) 10^3/ul Absolute Nucleated RBC 0 10^3/ul Nucleated RBC % 0 Sodium 140 (133-145) mmol/L Potassium 4.0 (3.5-5.0) mmol/L Chloride 103 (101-111) mmol/L Carbon Dioxide 31 (22-32) mmol/L Anion Gap 6 (2-11) mmol/L BUN 10 (6-24) mg/dL Creatinine 0.73 (0.51-0.95) mg/dL Est GFR ( Amer) 105.3 (>60) Est GFR (Non-Af Amer) 81.9 (>60) BUN/Creatinine Ratio 13.7 (8-20) Glucose 96 (70-100) mg/dL Calcium 9.9 (8.6-10.3) mg/dL Total Bilirubin 0.50 (0.2-1.0) mg/dL AST 17 (13-39) U/L ALT 9 (7-52) U/L Alkaline Phosphatase 73 (34-104) U/L Total Protein 7.2 (6.4-8.9) g/dL Albumin 4.5 (3.2-5.2) g/dL Globulin 2.7 (2-4) g/dL Albumin/Globulin Ratio 1.7 (1-3) TSH 1.74 (0.34-5.60) mcIU/mL Salicylates < 2.50 (<30) mg/dL Acetaminophen < 15 mcg/mL Serum Alcohol < 10 (<10) mg/dL Result Diagrams: 03/29/17 15:55 03/29/17 15:55 Lab Statement: Any lab studies that have been ordered have been reviewed, and results considered in the medical decision making process. - CT CT brain CT Interpretation Completed By: Radiologist - 1. NO ACUTE INTRACRANIAL PATHOLOGY. 2. CHRONIC SMALL VESSEL ISCHEMIC CHANGE WITH CHRONIC LACUNAR INFARCTS OF THE BASAL GANGLIA BILATERALLY ED physician has reviewed this radiology report. Course/Dx - Course Assessment/Plan: Blood work w/o a significant abnormality. He is medically cleared. He is awaiting for a MHE. Patient is hemodynamically stable and A+O x 3. Patient will be signed out to the next ER attending to f/u MHE recomendations. - Differential Dx/Clinical Impression Differential Diagnosis/HQI/PQRI: Positive: Acute Psychosis, Anxiety, Bipolar Disorder, Depression Provider Diagnosis: Depression Discharge - Discharge Plan Condition: Stable Disposition: OTHER Discharge Disposition Comment: Patient will be signed out to the next ER attending to f/u MHE recommendati Referrals: Maurilio Gonzalez MD [Primary Care Provider] - The documentation as recorded by the Ant marques Gabriel accurately reflects the service I personally performed and the decisions made by , Stanley Cummings MD.
[2017-03-29 18:33] LABS: Urine Appearance Cloudy; Urine Blood 2+ (Negative); Urine Color Straw; Urine Ketones Negative (Negative); Urine Protein Negative (Negative); Urine Specific Gravity 1.004 (1.010-1.030); Urine Urobilinogen Negative (Negative)
[2017-03-29] MEDS ORDERED: Nitrofurantoin Macrocrystals* 100 MG CAP PO ONE (20:02)
--- NOTE | 2017-03-29 20:20 | ED ---
Progress - Progress Note Progress Note: Pt was here awaiting eval. She has decided she doesnt want to undergo the eval. She denies SI/HI and feels she can see her providers outpt. Her family had wanted her meds adjusted. She has UTI evident on labs and was started on Macrodantin here. Rx Macrobid. Diagnosis: 1. Major depression recurrent. 2. Acute UTI in female. Discharge at 20:20 on 03/29/17. Good condition. Course/Dx - Diagnoses Provider Diagnoses: Depression, UTI (urinary tract infection)
--- NOTE | 2017-03-31 10:53 | PN ---
Progress Note - Progress Note Date of Service: 03/29/17 Note: Urine culture grew Citrobacter amalonaticus Patient placed on Macrobid prior to discharge This is most likely be appropriate treatment We'll await sensitivities. Nothing further at this time. Nell Arreaga PA-C
== END 2017-03-29 20:33 | disposition home or self-care (01) ==
LOC: ED 12:55
DX: F32.9 Major depressive disorder, single episode, unspecified (principal); I67.82 Cerebral ischemia; Z88.0 Allergy status to penicillin; Z88.2 Allergy status to sulfonamides; Z88.8 Allergy status to other drugs, medicaments and biological substances
CPT/HCPCS: 36415; 70450; 80053; 80307; 80320; 80329; 81003; 81015; 84443; 85025; 87077; 87086; 87186; 99282; A9270-GY; G0480

== ENCOUNTER 2017-07-28 10:13 | Emergency (ER) | payer MEDICAID, MEDICARE ==
[2017-07-28 10:36] VITALS: BP 94/66
--- NOTE | 2017-07-28 11:26 | UC ---
Complaint Female HPI - HPI Summary HPI Summary: 2 day history of urinary burning and frequency. states feels like a UTI (has had several in past) denies vag symps - History Of Current Complaint Chief Complaint: UCGU Stated Complaint: FREQUENT URINATION Time Seen by Provider: 07/28/17 11:02 Hx Obtained From: Patient Onset/Duration: Gradual Onset - 2 days Timing: Constant Severity Initially: Mild Severity Currently: Moderate Pain Intensity: 5 Character: Dull, Burning Aggravating Factor(s): Urination Alleviating Factor(s): Nothing Associated Signs And Symptoms: Positive: Negative. Negative: Back Pain, Vaginal Bleeding/Discharge, Nausea Related Hx: Similar Episode/Dx as: - UTI - Allergies/Home Medications Allergies/Adverse Reactions: Allergies Allergy/AdvReac Type Severity Reaction Status Date / Time benzonatate Allergy Hives Verified 07/28/17 11:15 [From [facility]] penicillin G Allergy Hives/Diff. Verified 07/28/17 11:15 Breathing/I tching Sulfa (Sulfonamide Allergy Hives Verified 07/28/17 11:15 Antibiotics) PMH/Surg Hx/FS Hx/Imm Hx Previously Healthy: Yes Psychological History: Anxiety - Surgical History Surgical History: Yes Surgery Procedure, Year, and Place: appy. c section - Family History Known Family History: Positive: Hypertension - Social History Occupation: Disabled Lives: Alone Alcohol Use: None Substance Use Type: None Smoking Status (MU): Never Smoked Tobacco - Immunization History Most Recent Influenza Vaccination: unknown Most Recent Tetanus Shot: thinks she is current Most Recent Pneumonia Vaccination: denies Review of Systems Constitutional: Negative Respiratory: Negative Cardiovascular: Negative Genitourinary: Dysuria, Frequency, Urgency Musculoskeletal: Negative Neurological: Negative All Other Systems Reviewed And Are Negative: Yes Physical Exam Triage Information Reviewed: Yes Appearance: Well-Appearing, No Pain Distress, Well-Nourished Vital Signs: Initial Vital Signs Temp 97.6 F 07/28/17 10:33 Pulse 88 07/28/17 10:33 Resp 16 07/28/17 10:33 BP 94/66 07/28/17 10:33 Pulse Ox 97 07/28/17 10:33 Vital Signs Reviewed: Yes Respiratory Exam: Normal Respiratory: Positive: Lungs clear Cardiovascular Exam: Normal Cardiovascular: Positive: RRR Abdomen Description: Positive: Nontender, No Organomegaly, Soft. Negative: CVA Tenderness (R), CVA Tenderness (L) Bowel Sounds: Positive: Present Psychological Exam: Normal Skin Exam: Normal Complaint Female Dx - Differential Dx/Diagnosis Differential Diagnosis/HQI/PQRI: Ureteral Stone - vaginitis, Urinary Tract Infection Provider Diagnoses: UTI Discharge - Sign-Out/Discharge Documenting (check all that apply): Discharge/Admit/Transfer - Discharge Plan Condition: Stable Disposition: HOME Prescriptions: Ciprofloxacin HCl [Cipro] 500 mg PO BID #10 tablet Referrals: Maurilio Gonzalez MD [Primary Care Provider] - - Billing Disposition and Condition Condition: STABLE Disposition: HOME
== END 2017-07-28 11:49 | disposition home or self-care (01) ==
LOC: UCEAST 10:13
DX: N39.0 Urinary tract infection, site not specified (principal); Z87.440 Personal history of urinary (tract) infections; F41.9 Anxiety disorder, unspecified; Z88.0 Allergy status to penicillin; Z88.2 Allergy status to sulfonamides; Z88.8 Allergy status to other drugs, medicaments and biological substances
CPT/HCPCS: 81003; 87086; 99212; G0463

== ENCOUNTER 2017-08-26 09:04 | Emergency (ER) | payer MEDICARE ==
[2017-08-26 10:00] LABS: Urine Appearance Clear; Urine Blood Negative (Negative); Urine Color Straw; Urine Ketones Negative (Negative); Urine Protein Negative (Negative); Urine Urobilinogen Negative (Negative)
[2017-08-26 10:48] VITALS: BP 110/78
--- NOTE | 2017-08-26 15:49 | ED ---
GI/ HPI - HPI Summary HPI Summary: Patient is a 57-year-old female who presents to the ED with complaints of frequency and urgency. She states this is happened several times to her before and has been diagnosed with UTIs in the past. She has been requiring depends daily. She has not seen a urologist. She has not been on antibiotics in the past month. She denies any suprapubic tenderness, but endorses a mild amount of back pain intermittently, none currently. She denies any fevers, sweats, chills. Allergies to penicillin and sulfa medications. - History of Current Complaint Chief Complaint: EDUrogenitalProblems Stated Complaint: POSS INFECTION Hx Obtained From: Patient Onset/Duration: Started Days Ago Timing: Constant Severity: Moderate Current Severity: Moderate Pain Intensity: 0 Associated Signs and Symptoms: Positive: UTI Symptoms - Additional Pertinent History Primary Care Physician: LISSETTE - Allergy/Home Medications Allergies/Adverse Reactions: Allergies Allergy/AdvReac Type Severity Reaction Status Date / Time benzonatate Allergy Hives Verified 08/26/17 09:06 [From [facility]] penicillin G Allergy Hives/Diff. Verified 08/26/17 09:06 Breathing/I tching Sulfa (Sulfonamide Allergy Hives Verified 08/26/17 09:06 Antibiotics) PMH/Surg Hx/FS Hx/Imm Hx Previously Healthy: Yes Endocrine/Hematology History: Denies: Hx Diabetes, Hx Thyroid Disease Cardiovascular History: Reports: Hx Deep Vein Thrombosis Denies: Hx Hypertension, Hx Pacemaker/ICD Respiratory History: Denies: Hx Asthma, Hx Chronic Obstructive Pulmonary Disease (COPD) GI History: Denies: Hx Ulcer History: Reports: Hx Kidney Infection, Other Problems/Disorders - Recurrent UTI's. Denies: Hx Renal Disease Sensory History: Reports: Hx Hearing Problem - currently has an ear infection Denies: Hx Cataracts, Hx Contacts or Glasses, Hx Hearing Aid Opthamlomology History: Denies: Hx Cataracts, Hx Contacts or Glasses Neurological History: Reports: Hx Developmental Delay, Hx Headaches, Hx Seizures - years ago, last seizure was when she was 3 Denies: Hx Dementia Psychiatric History: Reports: Hx Anxiety, Hx Depression, Hx Inpatient Treatment , Hx Community Mental Health Tx, Hx Schizophrenia, Hx Bipolar Disorder, Other Psychiatric Issues/Disorders - hx OCD, adjustment d/o Denies: Hx Eating Disorder, Hx of Violent Episodes Against Others - Surgical History Surgery Procedure, Year, and Place: appy. c section - Immunization History Hx Pertussis Vaccination: No Immunizations Up to Date: Unable to Obtain/Confirm Infectious Disease History: No Infectious Disease History: Denies: Hx Clostridium Difficile, Hx Hepatitis, Hx Human Immunodeficiency Virus (HIV), Hx of Known/Suspected MRSA, Hx Shingles, Hx Tuberculosis, History Other Infectious Disease, Traveled Outside the [place] in Last 30 Days - Family History Known Family History: Positive: Hypertension - Social History Occupation: Unemployed Lives: Alone Alcohol Use: None Hx Substance Use: No Substance Use Type: Reports: None Hx Tobacco Use: No Smoking Status (MU): Never Smoked Tobacco Review of Systems Constitutional: Negative Negative: Fever, Chills, Fatigue, Skin Diaphoresis Negative: Palpitations, Chest Pain Negative: Shortness Of Breath, Cough Negative: Abdominal Pain, Vomiting, Diarrhea, Nausea Positive: see HPI, frequency, incontinence, urgency. Negative: burning, dysuria , hematuria, pain Musculoskeletal: Negative Neurological: Negative All Other Systems Reviewed And Are Negative: Yes Physical Exam Triage Information Reviewed: Yes Vital Signs On Initial Exam: Initial Vitals Temp Pulse Resp BP Pulse Ox 97.5 F 81 16 121/74 95 08/26/17 09:05 08/26/17 09:05 08/26/17 09:05 08/26/17 09:05 08/26/17 09:05 Vital Signs Reviewed: Yes Appearance: Positive: Well-Appearing, Well-Nourished Skin: Positive: Warm, Skin Color Reflects Adequate Perfusion Head/Face: Positive: Normal Head/Face Inspection Neck: Positive: Supple, No Lymphadenopathy Respiratory/Lung Sounds: Positive: Clear to Auscultation, Breath Sounds Present Cardiovascular: Positive: RRR, Pulses are Symmetrical in both Upper and Lower Extremities Musculoskeletal: Positive: Normal, Strength/ROM Intact Neurological: Positive: Speech Normal Psychiatric: Positive: Normal, Affect/Mood Appropriate AVPU Assessment: Alert Diagnostics - Vital Signs Vital Signs Temp Pulse Resp BP Pulse Ox 08/26/17 10:47 98.2 F 73 16 110/78 97 08/26/17 09:05 97.5 F 81 16 121/74 95 - Laboratory Lab Results: Lab Results 08/26/17 Range/Units 09:50 Urine Color Straw Urine Appearance Clear Urine pH 6.0 (5-9) Ur Specific [place] 1.010 (1.010-1.030) Urine Protein Negative (Negative) Urine Ketones Negative (Negative) Urine Blood Negative (Negative) Urine Nitrate Negative (Negative) Urine Bilirubin Negative (Negative) Urine Urobilinogen Negative (Negative) Ur Leukocyte Esterase 1+ A (Negative) Urine WBC (Auto) 1+(6-10/hpf) A (Absent) Urine RBC (Auto) Absent (Absent) Ur Squamous Epith Cells Present A (Absent) Urine Bacteria Absent (Absent) Urine Glucose Negative (Negative) Lab Statement: Any lab studies that have been ordered have been reviewed, and results considered in the medical decision making process. GIGU Course/Dx - Course Course Of Treatment: The patient's evaluated for a possible UTI. UA obtained which shows 1+ leukocytes. I discussed with the patient her symptoms N believe there may be an overactive bladder component. I have referred her to a urologist to further discuss this issue and possible the need for medications. She states she often does not make it to the bathroom when she feels the urgency and this requires depends. She denies any back pain currently. Denies any fevers, sweats, chills. Due to the low 1+ leukocytes, patient will be placed on antibiotics. I have given her Macrobid, and have encouraged her to drink milk with this medication to reduce the amount of acidity. She will follow up with urology. - Diagnoses Provider Diagnoses: Overactive bladder, UTI (urinary tract infection) Discharge - Sign-Out/Discharge Documenting (check all that apply): Discharge/Admit/Transfer - Discharge Plan Condition: Stable Disposition: HOME Prescriptions: Loratadine [Claritin 10 MG CAP] 10 mg PO DAILY #30 cap Nitrofurantoin Monohyd/M-Cryst [Macrobid 100 mg Capsule] 100 mg PO BID #10 cap Patient Education Materials: Overactive Bladder (DC), Urinary Urgency and Frequency (DC) Referrals: Maurilio Gonzalez MD [Primary Care Provider] - Kyle Triplett MD [Medical Doctor] - Additional Instructions: I believe you have a component of an overactive bladder base and your symptoms Please follow-up with urology about this issue We will treat you for a UTI today which could be exacerbating her symptoms I have also given you an allergy medication Please follow-up with your PCP for a further prescription - Billing Disposition and Condition Condition: STABLE Disposition: Home
--- NOTE | 2017-08-28 06:40 | PN ---
Progress Note - Progress Note Date of Service: 08/28/17 Note: patient urine culture grew E coli 75-100,000. patient placed on macrobid. will wait for final culture for sensitivities.
--- NOTE | 2017-08-29 06:35 | PN ---
Progress Note - Progress Note Date of Service: 08/29/17 Note: patient placed on macrobid which final culture shows is sensitive to. no further action required.
== END 2017-08-26 10:47 | disposition home or self-care (01) ==
LOC: ED 09:04
DX: N32.81 Overactive bladder (principal); N39.0 Urinary tract infection, site not specified; B96.20 Unspecified Escherichia coli [E. coli] as the cause of diseases classified elsewhere; Z87.440 Personal history of urinary (tract) infections; Z86.718 Personal history of other venous thrombosis and embolism; Z88.0 Allergy status to penicillin; Z88.2 Allergy status to sulfonamides
CPT/HCPCS: 81003; 81015; 87077; 87086; 87186; 99282

== ENCOUNTER 2017-12-06 16:16 | Emergency (ER) | payer MEDICARE ==
--- NOTE | 2017-12-06 21:56 | ED ---
Headache - HPI Summary HPI Summary: The pt is a 57 [facility] [place] [facility] 2 moths worsened today. She notes "noise in her ears", sinus congestion, and cough but denies N/V/D. She took OTC medications to no relief. As per the nurses notes, the pt requests to talk to social work regarding her living conditions but at bedside, the pt reports that she feels safe going back home. - History Of Current Complaint Chief Complaint: EDHeadache Stated Complaint: HEADACHE Time Seen by Provider: 12/06/17 21:52 Hx Obtained From: Patient Onset/Duration: Started weeks ago - 2 months ago, Still Present, Worse Since - Today Initially Headache Was: Initial Pain Scale(0-10)= - 0 Allevating Factors: Nothing Associated Signs And Symptoms: Negative - N/V/D - Allergies/Home Medications Allergies/Adverse Reactions: Allergies Allergy/AdvReac Type Severity Reaction Status Date / Time benzonatate Allergy Hives Verified 12/06/17 16:28 [From [facility]] penicillin G Allergy Hives/Diff. Verified 12/06/17 16:28 Breathing/I tching Sulfa (Sulfonamide Allergy Hives Verified 12/06/17 16:28 Antibiotics) PMH/Surg Hx/FS Hx/Imm Hx Previously Healthy: No Endocrine/Hematology History: Denies: Hx Diabetes, Hx Thyroid Disease Cardiovascular History: Reports: Hx Deep Vein Thrombosis Denies: Hx Hypertension, Hx Pacemaker/ICD Respiratory History: Denies: Hx Asthma, Hx Chronic Obstructive Pulmonary Disease (COPD) GI History: Denies: Hx Ulcer History: Reports: Hx Kidney Infection, Other Problems/Disorders - Recurrent UTI's. Denies: Hx Renal Disease Sensory History: Reports: Hx Hearing Problem - currently has an ear infection Denies: Hx Cataracts, Hx Contacts or Glasses, Hx Hearing Aid Opthamlomology History: Denies: Hx Cataracts, Hx Contacts or Glasses Neurological History: Reports: Hx Developmental Delay, Hx Headaches, Hx Seizures - years ago, last seizure was when she was 3 Denies: Hx Dementia Psychiatric History: Reports: Hx Anxiety, Hx Depression, Hx Inpatient Treatment , Hx Community Mental Health Tx, Hx Schizophrenia, Hx Bipolar Disorder, Other Psychiatric Issues/Disorders - hx OCD, adjustment d/o Denies: Hx Eating Disorder, Hx of Violent Episodes Against Others - Cancer History Hx Chemotherapy: No Hx Radiation Therapy: No - Surgical History Surgery Procedure, Year, and Place: appy. c section Infectious Disease History: No Infectious Disease History: Denies: Hx Clostridium Difficile, Hx Hepatitis, Hx Human Immunodeficiency Virus (HIV), Hx of Known/Suspected MRSA, Hx Shingles, Hx Tuberculosis, History Other Infectious Disease, Traveled Outside the [place] in Last 30 Days - Family History Known Family History: Positive: Hypertension - Social History Occupation: Unemployed, Disabled Lives: Alone Alcohol Use: None Hx Substance Use: No Substance Use Type: Reports: None Hx Tobacco Use: No Smoking Status (MU): Never Smoked Tobacco Review of Systems ENT: Other - Positive: Tinnitus Positive: Other - Positive: sinus congestion Positive: Cough Negative: Vomiting, Diarrhea, Nausea Positive: Headache All Other Systems Reviewed And Are Negative: Yes Physical Exam - Summary Physical Exam Summary: VITAL SIGNS: Reviewed. GENERAL: Patient is a well-developed and nourished female who is lying comfortable in the stretcher. Patient is not in any acute respiratory distress. HEAD AND FACE: No signs of trauma. No ecchymosis, hematomas or skull depressions. No sinus tenderness. EYES: PERRLA, EOMI x 2, No injected conjunctiva, no nystagmus. EARS: Hearing grossly intact. Ear canals and tympanic membranes are within normal limits. MOUTH: Oropharynx within normal limits. NECK: Supple, trachea is midline, no adenopathy, no JVD, no carotid bruit, no c- spine tenderness, neck with full ROM. CHEST: Symmetric, no tenderness at palpation LUNGS: Clear to auscultation bilaterally. No wheezing or crackles. CVS: Regular rate and rhythm, S1 and S2 present, no murmurs or gallops appreciated. ABDOMEN: Soft, non-tender. No signs of distention. No rebound no guarding, and no masses palpated. Bowel sounds are normal. EXTREMITIES: FROM in all major joints, no edema, no cyanosis or clubbing. NEURO: Alert and oriented x 3. No acute neurological deficits. Speech is normal and follows commands. SKIN: Dry and warm Triage Information Reviewed: Yes Vital Signs On Initial Exam: Initial Vitals Temp Pulse Resp BP Pulse Ox 97.8 F 91 16 124/90 96 12/06/17 16:20 12/06/17 16:20 12/06/17 16:20 12/06/17 16:20 12/06/17 16:20 Vital Signs Reviewed: Yes Diagnostics - Vital Signs Vital Signs Temp Pulse Resp BP Pulse Ox 12/06/17 20:56 97.5 F 67 16 109/69 96 12/06/17 18:55 97.4 F 78 16 128/78 95 12/06/17 16:20 97.8 F 91 16 124/90 96 - Laboratory Lab Statement: Any lab studies that have been ordered have been reviewed, and results considered in the medical decision making process. Headache Course/Dx - Course Course Of Treatment: A 57 year-old F presents to the ED with a CC of a VALDIVIA for 2 moths worsened today. She notes tinnitus, sinus congestion, and cough but denies N/V/D. She took OTC medications to no relief. A physical exam is unremarkable. Patient will be discharged with a final Dx of sinusitis. Pt is agreeable with this plan. Allergies noted. - Diagnoses Provider Diagnoses: Sinusitis Discharge - Sign-Out/Discharge Documenting (check all that apply): Patient Departure - DC - Discharge Plan Condition: Stable Disposition: HOME Prescriptions: Ibuprofen TAB* [Motrin TAB* 800 MG] 800 mg PO Q6H PRN #30 tab PRN Reason: Pain Levofloxacin TAB* [Levaquin TAB*] 750 mg PO DAILY #10 tab predniSONE TAB* [Deltasone 20 MG TAB*] 40 mg PO DAILY #5 tab Patient Education Materials: Sinusitis (ED) Referrals: Alberto Augustine MD [Primary Care Provider] - 2 Days Additional Instructions: RETURN TO THE EMERGENCY DEPARTMENT FOR CHANGING OR WORSENING SYMPTOMS. FOLLOW UP WITH PCP IN 1-2 DAYS. - Attestation Statements Document Initiated by Scribe: Yes Documenting Scribe: Sarita Chang Provider For Whom Scribe is Documenting (Include Credential): Dr Milvia Morgan MD Scribe Attestation: Sarita Light , scribed for Dr Milvia Morgan MD on 12/07/17 at 0018.
[2017-12-06] MEDS ORDERED: Levofloxacin TAB* 750 MG PO ONE (22:05)
[2017-12-06] MEDS ORDERED: predniSONE TAB* 20 MG PO ONE (22:05)
[2017-12-06] MEDS ORDERED: Ibuprofen TAB* 800 MG PO ONE (22:06)
[2017-12-06 22:26] VITALS: BP 115/74
== END 2017-12-06 22:26 | disposition home or self-care (01) ==
LOC: ED 16:16
DX: J32.9 Chronic sinusitis, unspecified (principal); Z86.718 Personal history of other venous thrombosis and embolism; Z88.0 Allergy status to penicillin; Z88.2 Allergy status to sulfonamides; Z88.8 Allergy status to other drugs, medicaments and biological substances
CPT/HCPCS: 99282; A9270-GY; J7512

== ENCOUNTER 2017-12-20 09:12 | Inpatient (IN) | payer MEDICARE, MEDICAID ==
--- NOTE | 2017-12-20 11:18 | RAD ---
HISTORY: cough COMPARISONS: September 12, 2016 VIEWS: 1: frontal AP view of the chest at 10:55 AM FINDINGS: LINES AND TUBES: None. CARDIOMEDIASTINAL SILHOUETTE: The cardiomediastinal silhouette is normal for portable technique. PLEURA: The costophrenic angles are sharp. No pleural abnormalities are noted. LUNG PARENCHYMA: There is hyperinflation. ABDOMEN: The upper abdomen is clear. There is no subphrenic gas. BONES AND SOFT TISSUES: No bone or soft tissue abnormalities are noted. IMPRESSION: HYPERINFLATION. NO ACTIVE CARDIOPULMONARY DISEASE.
[2017-12-20 11:29] LABS: ABS Basophils 0 10^3/ul (0-0.2); ABS Eosinophils 0.1 10^3/ul (0-0.6); ABS Lymphocytes 1.4 10^3/ul (1.0-4.8); ABS Monocytes 0.5 10^3/ul (0-0.8); ABS Neutrophils 4.5 10^3/ul (1.5-7.7); ABS Nucleated RBC 0 10^3/ul; Eosinophil % 0.9 % (0-6); Hematocrit 39 % (35-47); Hemoglobin 13.2 g/dl (12.0-16.0); Lymphocyte % 21.9 % (25-47); Mean Corpuscular HGB Conc 34 g/dl (31-36); Mean Corpuscular Hemoglobin 31 pg (27-31); Mean Corpuscular Volume 93 fL (80-97); Mean Platelet Volume 9.6 um3 (7.4-10.4); Nucleated Red Blood Cells % 0.1; Platelet Count 159 10^3/ul (150-450); Red Blood Count 4.25 10^6/ul (4.00-5.40); Red Cell Distribution Width 14 % (10.5-15); White Blood Count 6.5 10^3/ul (3.5-10.8)
[2017-12-20] MEDS ORDERED: HYDROcodone/ACETAMIN 5-325 MG* 1 TAB PO ONE (13:26)
--- NOTE | 2017-12-20 13:54 | ED ---
Progress - Progress Note Progress Note: I assisted with care of this patient with the PA on staff Dutch Miramontes. This patient is a 57 y/o female who present to the ED. She states she does not feel good because her back got too hot because when [place] gets too hot it pours out people. This is why she got sick but she was able to fix it. She states I am not crazy. She denies using etoh today. She is not answering question appropriately although she is oriented to place, time, and person. Discharge - Discharge Plan Referrals: Alberto Augustine MD [Primary Care Provider] - - Attestation Statements Document Initiated by Scribe: Yes Documenting Scribe: Marcelo Cain Provider For Whom Scribe is Documenting (Include Credential): Farhan Thomas MD Scribe Attestation: I, Marcelo Cain, scribed for Farhan Thomas MD on 12/20/17 at 1355.
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
--- NOTE | 2017-12-20 18:30 | PN ---
Progress Note - Progress Note Date of Service: 12/20/17 Note: I assisted with care of this patient with the PA on staff Dutch Miramontes. This patient is a 57 y/o female who present to the ED. She states she does not feel good because her back got too hot because when [place] gets too hot it pours out people. This is why she got sick but she was able to fix it. She states I am not crazy. She denies using etoh today. She is not answering question appropriately although she is oriented to place, time, and person. The patient had a non focal neurological deficit
[2017-12-20] MEDS ORDERED: Al Hydrox/Mg Hydrox/Simet LIQ* 30 ML UDC PO PRN (22:35)
[2017-12-21] MEDS: Vitamin THERAPEUTIC TAB PO SCH (09:59)
[2017-12-21] MEDS ORDERED: Docusate LIQ* 100 MG/10 ML UDC OTIC PRN (12:03)
[2017-12-21] MEDS ORDERED: Ibuprofen TAB* 400 MG PO PRN (12:10)
[2017-12-21] MEDS: Sertraline* 25 MG TAB PO SCH (13:03)
[2017-12-21] MEDS: Cetirizine* 10 MG TAB PO SCH (13:03)
[2017-12-21 13:57] LABS: Urine Appearance Turbid; Urine Blood Negative (Negative); Urine Color Yellow; Urine Ketones Trace (Negative); Urine Protein 1+(30 mg/dL) (Negative); Urine Red Blood Cell 3+(>10/hpf) (Absent); Urine Specific Gravity 1.023 (1.010-1.030); Urine Urobilinogen Negative (Negative); Urine White Blood Cell 3+(>20/hpf) (Absent)
[2017-12-21] MEDS ORDERED: Ciprofloxacin TAB* 500 MG PO ONE (15:29)
[2017-12-21] MEDS: Ciprofloxacin TAB* 250 MG PO SCH (22:28)
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
[2017-12-22] MEDS: Cetirizine* 10 MG TAB PO SCH (09:13)
[2017-12-22] MEDS: Sertraline* 25 MG TAB PO SCH (09:13)
[2017-12-22] MEDS: Ciprofloxacin TAB* 250 MG PO SCH ×2 (09:13→20:55)
[2017-12-22] MEDS: Vitamin THERAPEUTIC TAB PO SCH (09:14)
[2017-12-23] MEDS: Sertraline* 25 MG TAB PO SCH (10:00)
[2017-12-23] MEDS: Vitamin THERAPEUTIC TAB PO SCH (10:00)
[2017-12-23] MEDS: Ciprofloxacin TAB* 250 MG PO SCH ×2 (10:00→21:53)
[2017-12-23] MEDS: Cetirizine* 10 MG TAB PO SCH (10:00)
--- NOTE | 2017-12-23 13:51 | PN ---
Addendum entered and electronically signed by Cariadd Kennedy NP 12/23/17 16:38 : Plan - continue inpatient psychiatric services until stabilized Original Note: Subjective - Subjective Date of Service: 12/23/17 Subjective: Patient continues to be flat affected. She has somatic complaints of ear pain and right hip pain. Complains of heat and air exchange bothering her during the night and is focused on taking a shower today, apologizing several times during interview for being malodorous. She states that she is hoping to have a room change because the heat and fan is keeping her up at night, ironically she complains of the same about her apartment. She is appropriate during interview but unable to stay focused during questions. Dysphoric and flat. Remains symptomatic. Objective - Appearance Appearance: Well Developed/Nourished Dysmorphic Features: Yes Hygiene: Normal Grooming: Fairly Well Kept - Behavior Psychomotor Activities: Abnormal-Decreased Exhibits Abnormal Movement: Yes - Attitude and Relatedness Attitude and Relatedness: Guarded Eye Contact: Fair - Speech Quality: Unpressured Latencies: Normal Quantity: Terse - Mood Patient's Decription of Mood: unable to focus - Affect Observed Affect: Constricted Affect Consistent with: Dysphoria - Thought Process Patient's Thought Process: Disorganized, Impoverished Thought Content: Yes Paranoid Ideation - focused on showering, obsessive about being malodorous, No Passive Wish, No Suicidal Planning, No Homicidal Ideation - Sensorium Experiencing Hallucinations: No, Sensorium is Clear Type of Hallucinations: Visual: No, Auditory: No, Command: No - Level of Consciousness Level of Consciousness: Alert Orientation: Yes Intact, Yes Orientated to Place, Yes Orientated to Person, No Orientated to Time - Impulse Control Impulse Control: Impaired - Insight and Judgement Insight and Judgement: Poor - Medication Management Medication Management Adherence: No Assessment - Assessment Merits Inpatient Hospitalization: For Stabilization Clinical Impression: Psychosis Plan - Plan Treatment Plan: Name: PRISCA CLARK Birthdate: 1960 [id number] Medications: Current Medications Acetaminophen (Tylenol Tab*) 650 mg PO Q4H PRN PRN Reason: PAIN or TEMP > 101 F Al Hydrox/Mg Hydrox/Simethicone (Maalox Plus*) 30 ml PO Q4H PRN PRN Reason: INDIGESTION Cetirizine HCl (Zyrtec*) 10 mg PO DAILY [facility]; Protocol Last Admin: 12/23/17 10:00 Dose: 10 mg Ciprofloxacin (Cipro Tab*) 250 mg PO Q12HR [facility] Last Admin: 12/23/17 10:00 Dose: 250 mg Docusate Sodium (Colace Liq*) 100 mg OTIC BID PRN PRN Reason: cerumen impaction Ibuprofen (Motrin Tab*) 400 mg PO Q6H PRN PRN Reason: PAIN Multivitamins (Theragran Tab*) 1 tab PO DAILY [facility] Last Admin: 12/23/17 10:00 Dose: 1 tab Sertraline HCl (Zoloft*) 25 mg PO DAILY [facility] Last Admin: 12/23/17 10:00 Dose: 25 mg - Discharge Plan Discharge Plan: Outpatient Follow Up
[2017-12-24] MEDS: Vitamin THERAPEUTIC TAB PO SCH (10:10)
[2017-12-24] MEDS: Sertraline* 25 MG TAB PO SCH (10:10)
[2017-12-24] MEDS: Cetirizine* 10 MG TAB PO SCH (10:10)
[2017-12-24] MEDS: Ciprofloxacin TAB* 250 MG PO SCH ×2 (10:10→20:20)
--- NOTE | 2017-12-24 13:45 | PN ---
[facility]: Group Therapy Note - Service Type Service Type: 90359 Group Psychotherapy - Cognitive Behavioral Group Therapy ( CBT):Patient attended CBT programming this morning and presented with flat affect that did not vary with discussion. Although responsive to direct prompts to respond to questions, patient did not engage in spontaneous conversation.
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
[2017-12-25] MEDS: Nitrofurantoin Macrocrystals* 50 MG CAP PO SCH ×2 (09:02→20:37)
[2017-12-25] MEDS: Vitamin THERAPEUTIC TAB PO SCH (09:02)
[2017-12-25] MEDS: Sertraline* 50 MG TAB PO SCH ×2 (09:02→20:37)
[2017-12-25] MEDS: Cetirizine* 10 MG TAB PO SCH (09:02)
[2017-12-25] MEDS ORDERED: hydrOXYzine HCL TAB* 25 MG PO PRN (13:21)
--- NOTE | 2017-12-25 14:25 | PN ---
Subjective - Subjective Date of Service: 12/25/17 Service Type: 39909 Hosp care 15 min low complexity Subjective: Patient took it upon herself to sleep in a different room (with two roommates) when she noticed an empty bed. She also utilized the bathroom and completed ADLs. Staff assisted her in changing room assignments. She continues to waiver in decision making in regards to completing tasks and perseverates on contamination. Objective - Appearance Appearance: Well Developed/Nourished Dysmorphic Features: Yes Hygiene: Normal Grooming: Well Kept - Behavior Psychomotor Activities: Normal Exhibits Abnormal Movement: No - Attitude and Relatedness Attitude and Relatedness: Needy Eye Contact: Good - Speech Quality: Unpressured Latencies: Normal Quantity: Appropriate - Mood Patient's Decription of Mood: "Okay" - Affect Observed Affect: Tense Affect Consistent with: Dysphoria - Thought Process Patient's Thought Process: Circumstantial, Impoverished Thought Content: Yes Paranoid Ideation, No Passive Wish, No Suicidal Planning, No Homicidal Ideation - Sensorium Experiencing Hallucinations: No, Sensorium is Clear Type of Hallucinations: Visual: No, Auditory: No, Command: No - Level of Consciousness Level of Consciousness: Alert Orientation: Yes Intact, Yes Orientated to Time, Yes Orientated to Place, Yes Orientated to Person - Impulse Control Impulse Control: Impaired - Insight and Judgement Insight and Judgement: Impaired - Group Participation Particating in Group Activities: No - Medication Management Medication Management Adherence: Yes Assessment - Assessment Merits Inpatient Hospitalization: For Immediate Safety, For Stabilization, For Discharge Planning Inpatient DSM-V Dx: F42.8 Clinical Impression: 57yo wf with history of OCD and intellectual disability. She historically stops taking sertraline and become psychotic. She was recently treated for sinus infection, that was likely psychosomatic. Patient continues to endorse obsessions and compulsions and is unable to care for herself. Plan - Plan Treatment Plan: Name: PRISCA CLARK Birthdate: 1960 [id number] continue acute intensive psychiatric treatment. may decrease to q30min and allow staff pass. continue to titrate sertraline and treat UTI. encourage fluids. add hydroxyzine prn for anxiety and small dose quetiapine at bedtime. discharge planning to include outpatient providers. Continued Medication Management: Start Medication Medications: Current Medications Acetaminophen (Tylenol Tab*) 650 mg PO Q4H PRN PRN Reason: PAIN or TEMP > 101 F Al Hydrox/Mg Hydrox/Simethicone (Maalox Plus*) 30 ml PO Q4H PRN PRN Reason: INDIGESTION Cetirizine HCl (Zyrtec*) 10 mg PO DAILY [facility]; Protocol Last Admin: 12/25/17 09:02 Dose: 10 mg Docusate Sodium (Colace Liq*) 100 mg OTIC BID PRN PRN Reason: cerumen impaction Hydroxyzine HCl (Atarax Tab*) 25 mg PO Q4H PRN PRN Reason: ANXIETY Ibuprofen (Motrin Tab*) 400 mg PO Q6H PRN PRN Reason: PAIN Multivitamins (Theragran Tab*) 1 tab PO DAILY [facility] Last Admin: 12/25/17 09:02 Dose: 1 tab Nitrofurantoin Macrocrystals (Macrodantin*) 50 mg PO BID [facility] Last Admin: 12/25/17 09:02 Dose: 50 mg Quetiapine Fumarate (Seroquel Tab*) 25 mg PO BEDTIME [facility] Sertraline HCl (Zoloft*) 50 mg PO BID [facility] Last Admin: 12/25/17 09:02 Dose: 50 mg - Discharge Plan Discharge Plan: Outpatient Follow Up Outpatient Program: Luci Melgoza [facility]
[2017-12-25] MEDS: Acetaminophen TAB* 325 MG PO PRN (16:13)
[2017-12-25] MEDS: QUEtiapine TAB* 25 MG PO SCH (20:37)
[2017-12-26] MEDS: Nitrofurantoin Macrocrystals* 50 MG CAP PO SCH ×2 (10:58→20:55)
[2017-12-26] MEDS: Sertraline* 50 MG TAB PO SCH (10:59)
[2017-12-26] MEDS: Vitamin THERAPEUTIC TAB PO SCH (10:59)
[2017-12-26] MEDS: Cetirizine* 10 MG TAB PO SCH (10:59)
--- NOTE | 2017-12-26 11:57 | PN ---
Subjective - Subjective Date of Service: 12/26/17 Service Type: 26189 Hosp care 25 min moderate complexity Subjective: Can Cleaner and RN were present with patient while she changed clothing. She utilized tissues to touch hospital slippers and was weary of touching the floor with her feet. She wiped hands and feet multiple times with moist washcloth. She often paused and asked if what she is doing was "ok." Patient c/o headache and R ear fullness. Patient is avoidant of beverages due to germophobia. We encouraged patient to complete tasks independently. Patient given a clean pitcher marked with prompts to increase fluid intake. She continues to report concern about heat blowing in her apartment, causing dust and illness. Objective - Appearance Appearance: Well Developed/Nourished Dysmorphic Features: No Hygiene: Normal Grooming: Well Kept - Behavior Psychomotor Activities: Normal Exhibits Abnormal Movement: No - Attitude and Relatedness Attitude and Relatedness: Needy Eye Contact: Good - Speech Quality: Unpressured - soft spoken, mumbled at times Latencies: Normal Quantity: Appropriate - Mood Patient's Decription of Mood: "worried" - Affect Observed Affect: Tense Affect Consistent with: Dysphoria - Thought Process Patient's Thought Process: Circumstantial, Impoverished Thought Content: Yes Paranoid Ideation, No Passive Wish, No Suicidal Planning, No Homicidal Ideation - Sensorium Experiencing Hallucinations: No, Sensorium is Clear Type of Hallucinations: Visual: No, Auditory: No, Command: No - Level of Consciousness Level of Consciousness: Alert Orientation: Yes Intact, Yes Orientated to Time, Yes Orientated to Place, Yes Orientated to Person - Insight and Judgement Insight and Judgement: Poor - Group Participation Particating in Group Activities: Yes - Medication Management Medication Management Adherence: Yes Assessment - Assessment Merits Inpatient Hospitalization: For Immediate Safety, For Stabilization, Consolidate Improvements Inpatient DSM-V Dx: F42.8 Clinical Impression: 57yo wf with history of OCD and intellectual disability. She historically stops taking sertraline and become psychotic. She was recently treated for sinus infection, that was likely psychosomatic. Patient continues to endorse obsessions and compulsions and is unable to care for herself. She is tolerating medication titration and merits hospitalization for stabilization. Plan - Plan Treatment Plan: Name: PRISCA CLARK Birthdate: 1960 [id number] continue acute intensive psychiatric treatment. may decrease to q30min and allow staff pass. continue to titrate sertraline and treat UTI. encourage fluids. continue hydroxyzine prn for anxiety and small dose quetiapine at bedtime. discharge planning to include outpatient providers. Medications: Current Medications Acetaminophen (Tylenol Tab*) 650 mg PO Q4H PRN PRN Reason: PAIN or TEMP > 101 F Last Admin: 12/25/17 16:13 Dose: 650 mg Al Hydrox/Mg Hydrox/Simethicone (Maalox Plus*) 30 ml PO Q4H PRN PRN Reason: INDIGESTION Cetirizine HCl (Zyrtec*) 10 mg PO DAILY [facility]; Protocol Last Admin: 12/26/17 10:59 Dose: 10 mg Docusate Sodium (Colace Liq*) 100 mg OTIC BID PRN PRN Reason: cerumen impaction Hydroxyzine HCl (Atarax Tab*) 25 mg PO Q4H PRN PRN Reason: ANXIETY Last Admin: 12/26/17 11:01 Dose: 25 mg Ibuprofen (Motrin Tab*) 400 mg PO Q6H PRN PRN Reason: PAIN Multivitamins (Theragran Tab*) 1 tab PO DAILY [facility] Last Admin: 12/26/17 10:59 Dose: 1 tab Nitrofurantoin Macrocrystals (Macrodantin*) 50 mg PO BID [facility] Last Admin: 12/26/17 10:58 Dose: 50 mg Quetiapine Fumarate (Seroquel Tab*) 25 mg PO BEDTIME [facility] Last Admin: 12/25/17 20:37 Dose: 25 mg Sertraline HCl (Zoloft*) 50 mg PO BID [facility] Last Admin: 12/26/17 10:59 Dose: 50 mg increase sertraline to 75mg BID - Discharge Plan Discharge Plan: Outpatient Follow Up Outpatient Program: [facility]
--- NOTE | 2017-12-26 15:04 | PN ---
MHU: Group Therapy Note - Service Type Service Type: 09311 Group Psychotherapy - Medication Education Group: Patient attended group and presented with flat affect that did not vary with discussion. Although responsive to direct prompts to respond to questions, patient did not engage in spontaneous conversation.
[2017-12-26] MEDS: QUEtiapine TAB* 25 MG PO SCH (20:55)
[2017-12-26] MEDS: Sertraline* 25 MG TAB PO SCH (20:55)
[2017-12-27] MEDS: Sertraline* 25 MG TAB PO SCH ×2 (10:27→20:57)
[2017-12-27] MEDS: Vitamin THERAPEUTIC TAB PO SCH (10:27)
[2017-12-27] MEDS: Nitrofurantoin Macrocrystals* 50 MG CAP PO SCH ×2 (10:27→20:57)
[2017-12-27] MEDS: Cetirizine* 10 MG TAB PO SCH (10:27)
[2017-12-27 16:18] LABS: ABS Basophils 0.1 10^3/ul (0-0.2); ABS Eosinophils 0.1 10^3/ul (0-0.6); ABS Lymphocytes 1.4 10^3/ul (1.0-4.8); ABS Monocytes 0.5 10^3/ul (0-0.8); ABS Neutrophils 4.4 10^3/ul (1.5-7.7); ABS Nucleated RBC 0 10^3/ul; Eosinophil % 2.1 % (0-6); Hematocrit 39 % (35-47); Hemoglobin 13.4 g/dl (12.0-16.0); Lymphocyte % 20.7 % (25-47); Mean Corpuscular HGB Conc 35 g/dl (31-36); Mean Corpuscular Hemoglobin 32 pg (27-31); Mean Corpuscular Volume 93 fL (80-97); Mean Platelet Volume 9.9 um3 (7.4-10.4); Nucleated Red Blood Cells % 0.1; Platelet Count 180 10^3/ul (150-450); Red Blood Count 4.17 10^6/ul (4.00-5.40); Red Cell Distribution Width 14 % (10.5-15); White Blood Count 6.5 10^3/ul (3.5-10.8)
[2017-12-27 16:36] LABS: EGFR Non-African American 90.1 (>60)
[2017-12-27] MEDS: Acetaminophen TAB* 325 MG PO PRN (18:45)
[2017-12-27] MEDS: QUEtiapine TAB* 25 MG PO SCH (20:57)
[2017-12-28] MEDS: Sertraline* 25 MG TAB PO SCH (09:08)
[2017-12-28] MEDS: Nitrofurantoin Macrocrystals* 50 MG CAP PO SCH ×2 (09:08→21:40)
[2017-12-28] MEDS: Vitamin THERAPEUTIC TAB PO SCH (09:09)
[2017-12-28] MEDS: Cetirizine* 10 MG TAB PO SCH (09:09)
--- NOTE | 2017-12-28 15:48 | PN ---
Subjective - Subjective Date of Service: 12/28/17 Service Type: 74715 Hosp care 15 min low complexity Subjective: Patient reports she is not ready to return home and that the heat in her apartment makes her "get sick." She is observed to complete ADLs in an extremely time and staff consuming manner. She expresses fear about germs and contamination. She reports worry about L ear fullness. Pelt Grader assessed and noted patent ear canals; TM intact WNL, bilat. She reports numbness in distal portion of L 2nd digit. Digit warm to touch with good cap refill. LM with patient's daughter, Rachael, to discuss treatment/discharge planning. Assessment - Assessment Merits Inpatient Hospitalization: For Immediate Safety, For Stabilization, Consolidate Improvements, For Discharge Planning, Pending Safe DC Plan Inpatient DSM-V Dx: F42.8 Clinical Impression: 57yo wf with history of OCD and intellectual disability. She historically stops taking sertraline and become psychotic. She was recently treated for sinus infection, that was likely psychosomatic. Patient continues to endorse obsessions and compulsions and is unable to care for herself. She is tolerating medication titration and merits hospitalization for stabilization. Plan - Plan Treatment Plan: Name: PRISCA CLARK Birthdate: 1960 [id number] continue acute intensive psychiatric treatment. may decrease to q30min and allow staff pass. continue to titrate sertraline and treat UTI. encourage fluids. continue hydroxyzine prn for anxiety and small dose quetiapine at bedtime. discharge planning to include outpatient providers. Continued Medication Management: Start Medication Medications: Current Medications Acetaminophen (Tylenol Tab*) 650 mg PO Q4H PRN PRN Reason: PAIN or TEMP > 101 F Last Admin: 12/27/17 18:45 Dose: 650 mg Al Hydrox/Mg Hydrox/Simethicone (Maalox Plus*) 30 ml PO Q4H PRN PRN Reason: INDIGESTION Cetirizine HCl (Zyrtec*) 10 mg PO DAILY [facility]; Protocol Last Admin: 12/28/17 09:09 Dose: 10 mg Docusate Sodium (Colace Liq*) 100 mg OTIC BID PRN PRN Reason: cerumen impaction Hydroxyzine HCl (Atarax Tab*) 25 mg PO Q4H PRN PRN Reason: ANXIETY Last Admin: 12/26/17 11:01 Dose: 25 mg Ibuprofen (Motrin Tab*) 400 mg PO Q6H PRN PRN Reason: PAIN Multivitamins (Theragran Tab*) 1 tab PO DAILY [facility] Last Admin: 12/28/17 09:09 Dose: 1 tab Nitrofurantoin Macrocrystals (Macrodantin*) 50 mg PO BID [facility] Stop: 12/30/17 22:00 Last Admin: 12/28/17 09:08 Dose: 50 mg Quetiapine Fumarate (Seroquel Tab*) 50 mg PO BEDTIME [facility] Sertraline HCl (Zoloft*) 100 mg PO BID [facility] - Discharge Plan Discharge Plan: Outpatient Follow Up Outpatient Program: Luci Melgoza [facility]
[2017-12-28] MEDS: Acetaminophen TAB* 325 MG PO PRN (20:22)
[2017-12-28] MEDS: Sertraline* 100 MG TAB PO SCH (21:40)
[2017-12-28] MEDS: QUEtiapine TAB* 25 MG PO SCH (21:40)
[2017-12-29] MEDS: Nitrofurantoin Macrocrystals* 50 MG CAP PO SCH ×2 (09:05→20:37)
[2017-12-29] MEDS: Cetirizine* 10 MG TAB PO SCH (09:05)
[2017-12-29] MEDS: Sertraline* 100 MG TAB PO SCH ×2 (09:05→20:37)
[2017-12-29] MEDS: Vitamin THERAPEUTIC TAB PO SCH (09:06)
[2017-12-29] MEDS: QUEtiapine TAB* 25 MG PO SCH (20:37)
[2017-12-30] MEDS: Cetirizine* 10 MG TAB PO SCH (10:05)
[2017-12-30] MEDS: Vitamin THERAPEUTIC TAB PO SCH (10:05)
[2017-12-30] MEDS: Sertraline* 100 MG TAB PO SCH ×2 (10:05→21:55)
[2017-12-30] MEDS: Nitrofurantoin Macrocrystals* 50 MG CAP PO SCH ×2 (10:05→21:54)
[2017-12-30] MEDS: QUEtiapine TAB* 25 MG PO SCH (21:54)
[2017-12-31] MEDS: Cetirizine* 10 MG TAB PO SCH (11:29)
[2017-12-31] MEDS: Vitamin THERAPEUTIC TAB PO SCH (11:29)
[2017-12-31] MEDS: Sertraline* 100 MG TAB PO SCH ×2 (11:29→21:36)
--- NOTE | 2017-12-31 16:07 | PN ---
Subjective - Subjective Date of Service: 12/31/17 Service Type: 84321 Hosp care 15 min low complexity Subjective: Patient presents as anxious and when asked about this, she deflects to somatic complaints. She reports concerns about being "sick" if she returns home, difficulty living alone and caring for herself. She states that she is "afraid " of her apartment. She starts to speak about her mother and is tearful. When we attempt to discuss further, she changes the topic. On the unit, she is guarded and cautious in regards to contamination despite much assurance from multiple staff members. She is encouraged to complete tasks independently and to prepare to return home this week. Patient states she has difficulty remembering medications and is concerned about drowsiness. Intermodal Dispatcher informs her of plan to change scheduled medications to bedtime d/t drowsiness and adherence. Objective - Appearance Appearance: Well Developed/Nourished Dysmorphic Features: Yes Hygiene: Normal Grooming: Well Kept - Behavior Psychomotor Activities: Normal Exhibits Abnormal Movement: No - Attitude and Relatedness Attitude and Relatedness: Needy Eye Contact: Good - Speech Quality: Unpressured Latencies: Normal Quantity: Terse - Mood Patient's Decription of Mood: "Okay" - Affect Observed Affect: Tense Affect Consistent with: Dysphoria Assessment - Assessment Inpatient DSM-V Dx: F42.8 Clinical Impression: 57yo wf with history of OCD and intellectual disability. She historically stops taking sertraline and become psychotic. She was recently treated for sinus infection, that was likely psychosomatic. Patient continues to endorse obsessions and compulsions and is unable to care for herself. She is tolerating medication titration and merits hospitalization for stabilization. MHU: Problem List - Patient Problems (1) OCD (obsessive compulsive disorder) Current Visit: Yes Status: Chronic Priority: High Code(s): F42 - OBSESSIVE -COMPULSIVE DISORDER * DO NOT USE * SNOMED Code(s): 409682884 Comment: continued medication management and encourage independence with ADLs (2) Intellectual disability Current Visit: No Status: Chronic Priority: Low Code(s): F79 - UNSPECIFIED INTELLECTUAL DISABILITIES SNOMED Code(s): 021182792 Plan - Plan Treatment Plan: Name: PRISCA CLARK Birthdate: 1960 [id number] continue acute intensive psychiatric treatment. may decrease to q30min and allow staff pass. change scheduled medications to bedtime to decrease side effects and increase adherence. encourage fluids. continue hydroxyzine prn for anxiety. discharge planning to include outpatient providers. Medications: Current Medications Acetaminophen (Tylenol Tab*) 650 mg PO Q4H PRN PRN Reason: PAIN or TEMP > 101 F Last Admin: 12/28/17 20:22 Dose: 650 mg Al Hydrox/Mg Hydrox/Simethicone (Maalox Plus*) 30 ml PO Q4H PRN PRN Reason: INDIGESTION Cetirizine HCl (Zyrtec*) 10 mg PO BEDTIME [facility]; Protocol Hydroxyzine HCl (Atarax Tab*) 25 mg PO Q4H PRN PRN Reason: ANXIETY Last Admin: 12/26/17 11:01 Dose: 25 mg Ibuprofen (Motrin Tab*) 400 mg PO Q6H PRN PRN Reason: PAIN Quetiapine Fumarate (Seroquel Tab*) 50 mg PO BEDTIME [facility] Last Admin: 12/30/17 21:54 Dose: 50 mg Sertraline HCl (Zoloft*) 100 mg PO BID [facility] Stop: 01/01/18 09:00 Last Admin: 12/31/17 11:29 Dose: 100 mg Sertraline HCl (Zoloft*) 200 mg PO BEDTIME [facility] - Discharge Plan Discharge Plan: Outpatient Follow Up Outpatient Program: Luci Melgoza [facility]
[2017-12-31] MEDS: QUEtiapine TAB* 25 MG PO SCH (21:34)
[2018-01-01] MEDS: Sertraline* 100 MG TAB PO SCH ×2 (08:43→22:17)
[2018-01-01] MEDS: QUEtiapine TAB* 25 MG PO SCH (22:17)
[2018-01-01] MEDS: Cetirizine* 10 MG TAB PO SCH (22:18)
[2018-01-01] MEDS: Vitamin THERAPEUTIC TAB PO SCH (22:18)
--- NOTE | 2018-01-02 11:49 | PN ---
Subjective - Subjective Date of Service: 01/02/18 Service Type: 40731 Hosp care 15 min low complexity Subjective: Patient presents as anxious with tearful affect. She states concern that "people don't like me because I showered." She expresses fears in regards to her apartment, including not having enough dishes or clothing. Therapeutic presence and reassurance provided. Informed that outpatient providers and healthcare economics consultant are able to help with needs, including starting process to [facility]. Objective - Appearance Appearance: Well Developed/Nourished Dysmorphic Features: Yes Hygiene: Normal Grooming: Well Kept - Behavior Psychomotor Activities: Normal Exhibits Abnormal Movement: No - Attitude and Relatedness Attitude and Relatedness: Cooperative Eye Contact: Good - Speech Quality: Unpressured Latencies: Normal Quantity: Terse - Mood Patient's Decription of Mood: "Upset" - Affect Observed Affect: Depressed Affect Consistent with: Dysphoria - Thought Process Patient's Thought Process: Circumstantial Thought Content: No Passive Wish, No Suicidal Planning, No Homicidal Ideation, No Paranoid Ideation - Sensorium Experiencing Hallucinations: No, Sensorium is Clear Type of Hallucinations: Visual: No, Auditory: No, Command: No - Level of Consciousness Level of Consciousness: Alert Orientation: Yes Intact, Yes Orientated to Time, Yes Orientated to Place, Yes Orientated to Person - Impulse Control Impulse Control: Poor - Insight and Judgement Insight and Judgement: Poor - Group Participation Particating in Group Activities: No Group Participation Comments: given individual work - Medication Management Medication Management Adherence: Yes Assessment - Assessment Merits Inpatient Hospitalization: For Immediate Safety, Consolidate Improvements , For Discharge Planning Inpatient DSM-V Dx: F42.8 Clinical Impression: 57yo wf with history of OCD and intellectual disability. She historically stops taking sertraline and become psychotic. She was recently treated for sinus infection, that was likely psychosomatic. Patient continues to endorse obsessions and compulsions and is unable to care for herself. She is tolerating medication titration and discharge planned for 01/03/18. MHU: Problem List - Patient Problems (1) OCD (obsessive compulsive disorder) Current Visit: Yes Status: Chronic Priority: Medium Code(s): F42 - OBSESSIVE-COMPULSIVE DISORDER * DO NOT USE * SNOMED Code(s): 093521146 Comment: continued medication management and encourage independence with ADLs (2) Intellectual disability Current Visit: No Status: Chronic Priority: Low Code(s): F79 - UNSPECIFIED INTELLECTUAL DISABILITIES SNOMED Code(s): 386666048 Plan - Plan Treatment Plan: Name: PRISCA CLARK Birthdate: 1960 [id number] continue acute intensive psychiatric treatment. may decrease to q30min and allow staff pass. change scheduled medications to bedtime to decrease side effects and increase adherence. encourage fluids. continue hydroxyzine prn for anxiety. discharge tentative for 01/03/18. Continued Medication Management: Start Medication Medications: Current Medications Acetaminophen (Tylenol Tab*) 650 mg PO Q4H PRN PRN Reason: PAIN or TEMP > 101 F Last Admin: 12/28/17 20:22 Dose: 650 mg Al Hydrox/Mg Hydrox/Simethicone (Maalox Plus*) 30 ml PO Q4H PRN PRN Reason: INDIGESTION Cetirizine HCl (Zyrtec*) 10 mg PO BEDTIME [facility]; Protocol Last Admin: 01/01/18 22:18 Dose: 10 mg Hydroxyzine HCl (Atarax Tab*) 25 mg PO Q4H PRN PRN Reason: ANXIETY Last Admin: 12/26/17 11:01 Dose: 25 mg Ibuprofen (Motrin Tab*) 400 mg PO Q6H PRN PRN Reason: PAIN Multivitamins (Theragran Tab*) 1 tab PO BEDTIME [facility] Last Admin: 01/01/18 22:18 Dose: 1 tab Quetiapine Fumarate (Seroquel Tab*) 50 mg PO BEDTIME [facility] Last Admin: 01/01/18 22:17 Dose: 50 mg Sertraline HCl (Zoloft*) 200 mg PO BEDTIME [facility] Last Admin: 01/01/18 22:17 Dose: 200 mg - Discharge Plan Discharge Plan: Outpatient Follow Up Outpatient Program: [facility]
[2018-01-02] MEDS: Sertraline* 100 MG TAB PO SCH (21:59)
[2018-01-02] MEDS: Cetirizine* 10 MG TAB PO SCH (22:01)
[2018-01-02] MEDS: QUEtiapine TAB* 25 MG PO SCH (22:01)
[2018-01-02] MEDS: Vitamin THERAPEUTIC TAB PO SCH (22:03)
[2018-01-03 07:48] VITALS: BP 124/73
--- NOTE | 2018-01-05 10:05 | DS ---
CC: Dr. Bourgeois; [facility] * DISCHARGE SUMMARY: DATE OF ADMISSION: 12/20/17 DATE OF DISCHARGE: 01/04/18 SUPERVISING PSYCHIATRIST: Dr. Chintan Lara.* (DICTATED BY KATHY VALADEZ NP) DISCHARGE DIAGNOSIS: Obsessive compulsive disorder and intellectual disability. CONDITION AT THE TIME OF DISCHARGE: Improved. The patient is complaining of ADLs. She has been compliant with medications. We decreased medications to be given only at bedtime in order to improve adherence. The patient has been increasingly independent on the unit. She is no longer voicing somatic complaints. She was successfully treated for a urinary tract infection with antibiotic culture-specific to the microorganism. The patient's daughter is notified of discharge. The patient will be seen tomorrow at [facility] and the patient was picked up by Medicaid service coordinator, Kristina, to help with transition back to the patient's own apartment. She is in need of OPWDD services including increased Day Hab which has been coordinated with Kristina the Medicaid service coordinator as well. MENTAL STATUS EXAM: Rosalva is a 57-year-old white female who appears stated age. She is walking about the unit, well groomed, wearing her own clothing with the exception of wearing paper scrubs that are cut short as she does not like these to drag on the ground. The patient is alert and oriented. Eye contact is good. Speech is soft, mumbled, and impoverished which is baseline for the patient. No abnormal psychomotor activity noted. Mood is euthymic with mild anxiety and full range of affect. Thought process is impoverished and circumstantial. 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 The patient denies suicidal ideation, homicidal ideation. She denies auditory or visual hallucination. Insight and judgment are poor. The patient has a history of low intellect. DISCHARGE INSTRUCTIONS GIVEN TO PATIENT: A. Medications: Cetirizine 10 mg p.o. at bedtime, Flonase nasal spray 2 sprays both nares daily, quetiapine 50 mg p.o. q.h.s., and sertraline 200 mg p.o. q.h.s. B. Diet: Regular. C. Activity: Ambulation as tolerated. There are no pending labs at the time of discharge and tobacco cessation is not applicable. D. Followup. The patient will follow up with [facility] on 01/04/18 at 11:15. She also has an appointment on , 01/10/18 with psychiatric nurse practitioner Saundra. The patient has an appointment with primary care provider, Dr. Bourgeois, 01/16/18 at 10:30 a.m. E. Substance use followup is not applicable. HOSPITAL COURSE: Part A: Reason for admission: Please see full H and P from . The patient presented to the emergency department with somatic complaints and while there it was noted that she was having paranoid delusions. She is self taking psychiatric medications. She had not been eating or drinking. She lives independently and had not been taking care of herself. The patient was admitted to adult behavioral services unit on voluntary status. Code status was full. She was placed on 15- minute checks. This was decreased to 30 minute observation and she was allowed staff pass; however, she did not partake in staff pass. The patient was noted to have significant urinary tract infection. She was started on Cipro until the microorganism was cultured and then she was switched to fluoroquinolones to treat the UTI. The patient was encouraged to have increased fluid and dietary intake. She was leery of anything that was not prepackaged. She agreed to bottled water and Ensure. The patient was noted to have difficulty performing ADLs due to fear of contamination. She expressed delusions of her apartment burning her feet and the heat being contaminated. She also reported that it smelled bad. She had various other complaints that she does not have enough dishes or enough clothing. While on the unit, we titrated sertraline up to 200 mg. we did this slowly as the patient had complained of nausea. She had complained of nausea in the past. She completed the titration up to 200 mg with no complaints and this was changed to take at bedtime due to reports of drowsiness and increased adherence. The patient was also started on sertraline 50 mg at bedtime. We utilized the low dose due to her age and poor intake. The patient slept well. She was safe on all checks. Over the course of admission, as stated above, the patient tolerated medication changes. She was no longer voicing psychotic delusions. She continues to have difficulty with concerns of contamination and germophobia. Social work involved [facility] pet care technician to assist in transitioning the patient back to her home. There was also discussion of placing the patient on waiting list for available housing through OPWDD. KATHY VALADEZ NP [id number]/[facility] #: [id number] CAITIE
== END 2018-01-03 13:00 | disposition home or self-care (01) | DRG 882 ==
LOC: ED 09:12 → BSU 16:40
PROVIDERS: ADMIT Psychiatry & Neurology Psychiatry; ATTEND Psychiatry & Neurology Psychiatry
PROC: GZHZZZZ Group Psychotherapy (ICD-10-PCS; principal; 2017-12-20)
DX: F42.9 Obsessive-compulsive disorder, unspecified (principal); N39.0 Urinary tract infection, site not specified; F79 Unspecified intellectual disabilities; F41.9 Anxiety disorder, unspecified; F32.9 Major depressive disorder, single episode, unspecified; F20.9 Schizophrenia, unspecified; R40.2142 Coma scale, eyes open, spontaneous, at arrival to emergency department; R40.2362 Coma scale, best motor response, obeys commands, at arrival to emergency department; R40.2252 Coma scale, best verbal response, oriented, at arrival to emergency department; F40.228 Other natural environment type phobia; R00.1 Bradycardia, unspecified; F22 Delusional disorders; G40.909 Epilepsy, unspecified, not intractable, without status epilepticus; Z90.89 Acquired absence of other organs; Z81.8 Family history of other mental and behavioral disorders; Z88.8 Allergy status to other drugs, medicaments and biological substances; Z88.0 Allergy status to penicillin; Z91.14 Patient's other noncompliance with medication regimen; Z82.49 Family history of ischemic heart disease and other diseases of the circulatory system; Z88.2 Allergy status to sulfonamides; Z86.718 Personal history of other venous thrombosis and embolism; Z87.440 Personal history of urinary (tract) infections
CPT/HCPCS: 36415; 71045; 80048; 80053; 80061; 81003; 81015; 83036; 83735; 84484; 85025; 87077; 87086; 87186; 90853; 93005; 99222; 99231; 99232; 99238; 99283; A9270-GY

== ENCOUNTER 2018-01-04 12:31 | Inpatient (IN) | payer MEDICARE, MEDICAID ==
--- NOTE | 2018-01-04 12:45 | ED ---
Altered Mental Status - HPI Summary HPI Summary: Patient is a 57 y/o F BIBA as 945. She is accompanied by police and EMS upon arrival. Patient had an appointment with Rosalva Knutson. During this time, patient was reported to have been experiencing visual hallucinations, reaching for objects that were not present. Joycelyn Soto filled out the paperwork for 945. EMS reported that they were able to obtained BP but patient refused BG finger stick. In the room, patient states that, "Something is wrong with my apartment." When asked to explain further, she states her apartment is "too hot " and "not safe". In the room, she reports that her fingers were numb and shaking. She denies SI, HI, thoughts of self-harm. When asked if she is upset with anyone, she replies, "My apartment is not safe." Patient was asked if she has pain, she responds, "Isabela." When asked if finger stick and blood draw can be performed, patient became tearful. Patient then states, "I want to go to a safe place, please". Patient notes that she has her home medications in her bag. When asked if she can give her bag, she reports, "I don't wanna drink on the ground." PMHx of seizures is reported. Patient denies smoking, drinking alcohol, and drug usage. She also states that she fell on the sidewalk 3-4 months ago. On triage, pain is denied, nothing is noted to aggravate/alleviate Sx. Home medications and allergies are reviewed. Allergies Allergy/AdvReac Type Severity Reaction Status Date / Time benzonatate Allergy Hives Verified 12/23/17 01:09 [From [facility]] penicillin G Allergy Hives/Diff. Verified 12/23/17 01:09 Breathing/I tching Sulfa (Sulfonamide Allergy Hives Verified 12/23/17 01:09 Antibiotics) - History Of Current Complaint Stated Complaint: AMS Time Seen by Provider: 01/04/18 12:35 Hx Obtained From: Patient Onset/Duration: Still Present Timing: Constant Severity Currently: None - pain denied Character: Confusion - visual hallucinations Aggravating Factor(s): Nothing Alleviating Factor(s): Nothing Associated Signs And Symptoms: Positive: Remote Trauma - she reports falling on sidewalk 3-4 months ago Has Suicidal: Thoughts - DENIED Has Homicidal: Thoughts - DENIED - Allergies/Home Medications Allergies/Adverse Reactions: Allergies Allergy/AdvReac Type Severity Reaction Status Date / Time benzonatate Allergy Hives Verified 12/23/17 01:09 [From [facility]] penicillin G Allergy Hives/Diff. Verified 12/23/17 01:09 Breathing/I tching Sulfa (Sulfonamide Allergy Hives Verified 12/23/17 01:09 Antibiotics) PMH/Surg Hx/FS Hx/Imm Hx Previously Healthy: No Endocrine/Hematology History: Denies: Hx Diabetes, Hx Thyroid Disease Cardiovascular History: Reports: Hx Deep Vein Thrombosis Denies: Hx Hypertension, Hx Pacemaker/ICD Respiratory History: Denies: Hx Asthma, Hx Chronic Obstructive Pulmonary Disease (COPD) GI History: Denies: Hx Ulcer History: Reports: Hx Kidney Infection, Other Problems/Disorders - Recurrent UTI's. Denies: Hx Renal Disease Sensory History: Denies: Hx Cataracts, Hx Contacts or Glasses, Hx Hearing Aid Opthamlomology History: Denies: Hx Cataracts, Hx Contacts or Glasses Neurological History: Reports: Hx Developmental Delay, Hx Headaches, Hx Seizures - years ago, last seizure was when she was 3 Denies: Hx Dementia Psychiatric History: Reports: Hx Anxiety, Hx Eating Disorder - "i dont eat nothing", Hx Depression, Hx Inpatient Treatment, Hx Community Mental Health Tx, Hx Schizophrenia, Hx Bipolar Disorder, Other Psychiatric Issues/Disorders - hx OCD, adjustment d/o Denies: Hx of Violent Episodes Against Others - Cancer History Hx Chemotherapy: No Hx Radiation Therapy: No - Surgical History Surgery Procedure, Year, and Place: appy. c section Infectious Disease History: No Infectious Disease History: Denies: Hx Clostridium Difficile, Hx Hepatitis, Hx Human Immunodeficiency Virus (HIV), Hx of Known/Suspected MRSA, Hx Shingles, Hx Tuberculosis, History Other Infectious Disease - Family History Known Family History: Positive: Hypertension - Social History Lives: Alone Alcohol Use: None Hx Substance Use: No Substance Use Type: Reports: None Hx Tobacco Use: No Smoking Status (MU): Never Smoked Tobacco Review of Systems Negative: Fever - on triage, temp is 99.4 F Cardiovascular: Negative Respiratory: Negative Gastrointestinal: Negative Neurological: Other - fingers shaking Positive: Numbness - fingers Psychological: Other - visual hallucinations Positive: Other - SI, HI, and thoughts of self-harm are denied All Other Systems Reviewed And Are Negative: Yes Physical Exam - Summary Physical Exam Summary: Appearance: Well-appearing, no pain distress, well-nourished; patient shows extrapyramidal symptoms Skin: Warm, color reflects adequate perfusion, dry Head: Normal Head/Face inspection, atraumatic Eyes: Conjunctiva clear ENT: Normal inspection, smacking lips Neck: Supple, no nodes, no JVD Respiratory: Lungs clear, normal breath sounds, no respiratory distress Cardio: RRR, No murmur, pulses normal, brisk capillary refill Abdomen: Soft, nontender Bowel sounds: Present Musculoskeletal: Strength Intact/ROM intact, no calf tenderness, no edema. Psychological: calm, cooperative but tearful and tremulous Neuro: Alert, muscle tone normal, no focal deficit, hands are tremulous Triage Information Reviewed: Yes Vital Signs On Initial Exam: Initial Vitals Temp Pulse Resp BP Pulse Ox 99.4 F 76 16 126/78 97 01/04/18 12:32 01/04/18 12:32 01/04/18 12:32 01/04/18 12:32 01/04/18 12:32 Vital Signs Reviewed: Yes Diagnostics - Laboratory Result Diagrams: 01/04/18 13:08 01/04/18 13:08 Lab Statement: Any lab studies that have been ordered have been reviewed, and results considered in the medical decision making process. Re-Evaluation - Re-Evaluation First Eval Re-Evaluation Time: 12:53 Change: Unchanged Comment: blood glucose finger stick showed 102 BG, patient will be placed on 15 safety monitor. Second Eval Re-Evaluation Time: 14:32 Change: Unchanged Comment: 1432 patient was medically cleared for MHE. Altered Mental Statu Course/Dx - Course Course Of Treatment: Patient is a 57 y/o F BIBA as 945. Patient had an appointment with Rosalva Knutson. During this time, patient was reported to have been experiencing visual hallucinations, reaching for objects that were not present. EMS reported that they were able to obtained BP but patient refused BG finger stick. In the room, patient states that, "Something is wrong with my apartment." When asked to explain further, she states her apartment is "too hot " and "not safe". In the room, she reports that her fingers were numb and shaking. She denies SI, HI, thoughts of self-harm. When asked if she is upset with anyone, she replies, "My apartment is not safe." Patient was asked if she has pain, she responds, "Isabela." When asked if finger stick and blood draw can be performed, patient became tearful. Patient then states, "I want to go to a safe place, please". Patient notes that she has her home medications in her bag. When asked if she can give her bag, she reports, "I don't wanna drink on the ground." PMHx of seizures is reported. On physical exam, patient is noted to show extrapyramidal symptoms. In the room, patient is calm and cooperative but tearful and tremulous. Tox was negative. POC glucose was 102, no concerning lab findings. 1432 patient was medically cleared for MHE. 1625- Per Azael, social insurance analyst mental health plumber's assistant, Dr. Lara feels pt's symptoms are related to her OCD, and that pt would not benefit from inpatient admission, and that she is a safe discharge. Pt has a daughter who checks in on patient daily. Dr. Lara feels pt's hallucinations are related to her OCD. Pt denied to Azael that she taped the refrigerator shut, but stated the food might be bad. Pt will be discharged to follow up with mental health. Her transportation home will be via medicaid cab. - Diagnoses Provider Diagnoses: OCD (obsessive compulsive disorder), Intellectual disability, Hallucinations, visual - Provider Notifications Discussed Care Of Patient With: Chintan Lara - feels pt is safe discharge, dx OCD Time Discussed With Above Provider: 16:20 Discharge - Sign-Out/Discharge Documenting (check all that apply): Patient Departure - Discharge Plan Condition: Stable Disposition: HOME Referrals: Alberto Augustine MD [Primary Care Provider] - - Billing Disposition and Condition Condition: STABLE Disposition: Home
--- OUTSIDE RECORDS SUMMARY | 2018-01-04 12:45 | XMS REPORT ---
:1960 External Reference #:[id number] [facility] Address [address] [place] [address] [place] [address] Phone [phone] Care Team Providers Name Role Phone Alberto Augustine MD Primary Care Physician Unavailable Payers Type Date Identification Numbers Payment Provider Subscriber Medicare Primary Policy Number: [id number] Medicare Rosalva Wright PayID: [id number] [address] [place] [address] Medigap Part B Effective: 2015 Policy Number: [id number] Medicaid Rosalva Wright PayID: [id number] [address] [place] [address] Problems Date Description Provider Status Onset: 10/09/2017 Pain in right knee Mary Marker, RPA-C Active Onset: 10/09/2017 Recurrent urinary tract Mary Marker, RPA-C Active infection Onset: 10/09/2017 Environmental allergy Mary Marker, RPA-C Active Onset: 10/09/2017 Eustachian tube disorder Mary Marker, RPA-C Active Onset: 10/09/2017 Anxiety Mary Marker, RPA-C Active Onset: 10/09/2017 Mild cognitive disorder Mary Marker, RPA-C Active Onset: 12/17/2017 Obsessive-compulsive disorder Constantino Baptiste M.D.,FACP Onset: 09/03/2015 Fracture distal phalanx of thumb Katty Salas M.D. Resolved Resolved: 10/10/2017 Family History Date Family Member(s) Problem(s) Comments General Heart Disease General Diabetes General Cancer Father Diabetes Mother due to DE () Mother Diabetes Mother Breast Cancer Siblings 2 Sisters Social History Type Date Description Comments Marital Status Single Lives With Alone Occupation [employer] Cigarette Use Former Cigarette Smoker ETOH Use 12/17/2017 Occasionally consumes alcohol Smoking Patient is a former smoker 3 years in high school Recreational Drug Use Denies Drug Use Exercise Type/Frequency Exercises regularly General Hx Text Not sexually active. Male partners (incorrect on intake form) Allergies, Adverse Reactions, Alerts Date Description Reaction Status Severity Comments 09/03/2015 Penicillin active 09/03/2015 Sulfa Antibiotics active Medications Medication Date Status Form Strength Qnty SIG Indications Ordering Provider Fluticasone 10/09/ Active Suspension 50mcg/Act 15.800 1 spray in H69.93 [place] Propionate 2018 ml each Genaikara Sherice morocho daily. Claritin / Active Capsules 10mg 1 by mouth Unknown 0000 every day Sertraline / Active Tablets 100mg 1 by mouth Unknown HCL 0000 twice a day Zoloft 10/09/ Hx Tablets 200mg 30tabs ( Not [place] 2018 - Taking) 1 Pachikara 12/17/ by mouth M.DAmalia 2018 every day Fluconazole 09/16/ Hx Tablets 150mg 2tabs yeast Katty 2016 - infection Josue, 10/08/ MAmaliaDAmalia 2018 Keflex 09/03/ Hx Capsules 500mg 28caps 1 by mouth Omar 2016 - four times Kaylan, 09/06/ a day x 7 M.D. 2016 days Oral / Hx Unknown Antibiotic 0000 - 2017 Neosporin / Hx Unknown 0000 - 2017 Vital Signs Date Vital Result Comment 12/17/2017 Height 66 inches 5'6" Weight 174.00 lb Heart Rate 77 /min BP Systolic Sitting 140 mmHg BP Diastolic Sitting 62 mmHg Body Temperature 96.7 F O2 % BldC Oximetry 95 % BMI (Body Mass Index) 28.1 kg/m2 10/09/2017 Height 66 inches 5'6" Weight 186.56 lb Heart Rate 73 /min BP Systolic 120 mmHg BP Diastolic 78 mmHg Body Temperature 98.2 F O2 % BldC Oximetry 96 % BMI (Body Mass Index) 30.1 kg/m2 09/17/2015 Height 66 inches 5'6" Weight 180.00 lb Pain Level 0 BMI (Body Mass Index) 29.0 kg/m2 09/03/2015 Height 66 inches 5'6" Weight 180.00 lb Heart Rate 85 /min BP Systolic 117 mmHg BP Diastolic 78 mmHg BMI (Body Mass Index) 29.0 kg/m2 Results Test Date Test Result H/L Range Note CBC Auto Diff 10/16/2017 White Blood Count 6.1 10^3/uL 3.5-10.8 Red Blood Count 4.01 10^6/uL 4.00-5.40 Hemoglobin 12.5 g/dL 12.0-16.0 Hematocrit 37 % 35-47 Mean Corpuscular Volume 92 fL 80-97 Mean Corpuscular Hemoglobin 31 pg 27-31 Mean Corpuscular HGB Conc 34 g/dL 31-36 Red Cell Distribution Width 13 % 10.5-15 Platelet Count 209 10^3/uL 150-450 Mean Platelet Volume 9.4 um3 7.4-10.4 Abs Neutrophils 3.3 10^3/uL 1.5-7.7 Abs Lymphocytes 2.1 10^3/uL 1.0-4.8 Abs Monocytes 0.5 10^3/uL 0-0.8 Abs Eosinophils 0.2 10^3/uL 0-0.6 Abs Basophils 0 10^3/uL 0-0.2 Abs Nucleated RBC 0 10^3/uL Granulocyte % 55.0 % 38-83 Lymphocyte % 34.0 % 25-47 Monocyte % 7.8 % High 0-7 Eosinophil % 2.7 % 0-6 Basophil % 0.5 % 0-2 Nucleated Red Blood Cells % 0 Comp Metabolic Panel 10/16/2017 Sodium 141 mmol/L 135-145 Potassium 4.0 mmol/L 3.5-5.0 Chloride 106 mmol/L 101-111 Co2 Carbon Dioxide 26 mmol/L 22-32 Anion Gap 9 mmol/L 2-11 Glucose 129 mg/dL High 70-100 Blood Urea Nitrogen 13 mg/dL 6-24 Creatinine 0.73 mg/dL 0.51-0.95 BUN/Creatinine Ratio 17.8 8-20 Calcium 9.1 mg/dL 8.6-10.3 Total Protein 6.4 g/dL 6.4-8.9 Albumin 4.2 g/dL 3.2-5.2 Globulin 2.2 g/dL 2-4 Albumin/Globulin Ratio 1.9 1-3 Total Bilirubin 0.30 mg/dL 0.2-1.0 Alkaline Phosphatase 91 U/L 34-104 Alt 23 U/L 7-52 Ast 30 U/L 13-39 Egfr Non- 81.6 >60 Egfr 98.7 >60 1 Laboratory test finding 10/16/2017 B-Type Natriuretic Peptide BNP 20 pg/mL 2 TSH (Thyroid Stim Horm) 2.34 mcIU/mL 0.34-5.60 Ua Routine 10/09/2017 Ua Specific [place] 1.015 Ua PH 5 Ua Color yellow Ua Appera clear Ua WBC trace Ua Protein neh Ua Glucose neg Ua Ketones neg Ua Bilirubin neg Ua Urobilinogen neg Ua Nitrite neg Ua Occult Blood neg 1 Because ethnic data is not always readily available, this report includes an eGFR for both -Americans and non- Americans. The National Kidney Disease Education Program (NKDEP) does not endorse the use of the MDRD equation for patients that are not between the ages of 18 and 70, are , have extremes of body size, muscle mass, or nutritional status, or are non- or non-. According to the National Kidney Foundation, irrespective of diagnosis, the stage of the disease is based on the level of kidney function: Stage Description GFR(mL/min/1.73 m(2)) 1 Kidney damage with normal or decreased GFR 90 2 Kidney damage with mild decrease in GFR 60-89 3 Moderate decrease in GFR 30-59 4 Severe decrease in GFR 15-29 5 Kidney failure <15 (or dialysis) 2 >100 to <200 pg/mL: likely compensated congestive heart failure (CHF) 200 to 400 pg/mL: likely moderate CHF >400 pg/mL: likely moderate to severe CHF Procedures Date CPT Code Description Status 10/30/2017 Mammogram Completed 10/10/2017 61237 EKG Tracing & Interpretation Completed 09/09/2016 98498 EKG, Interpretation Only Completed 09/06/2016 01276 EKG, Interpretation Only Completed 09/03/2015 42386 FX Distal Finger/Thumb Care Completed 05/02/2001 Mammogram Completed Encounters Type Date Location Provider CPT E/M Dx Office Visit 10/09/2017 3:00p [facility] Mary Marker, [address] R60.[address] RPA-C Z12.31 J30.9 H69.93 N35.9 F41.9 R60.0 Z87.440 Office Visit 11/19/2015 2:46p [facility], THIN FILM TECHNICIAN 55859 N30.01 Assoc, Hospitalists R56.9 R46.89 F32.9 Office Visit 11/18/2015 2:34p [facility], [address]85 N30.01 Assoc, Hospitalists N.P. R56.9 R46.89 F32.9 Office Visit 11/03/2015 2:53p [facility], [place], [address]843 H65.90 Hospitalists M.Dante R56.9 F22 Office Visit [facility]/31[facility]2015 [facility] [place], [address] H65.90 Hospitalists MJenifer R56.9 F22 Office Visit 10/30/2015 2[facility]p [facility] [place], [address] H65.90 Hospitalists MJenifer R56.9 F22 Office Visit 10/29/2015 2:51p [facility], [address]75 H65.90 Assoc, Hospitalists N.P. R56.9 F22 Office Visit 10/25/2015 10:03a [facility], [address]154 H65.192 Assoc, Hospitalists THIN FILM TECHNICIAN Office Visit 10/22/2015 9:34a [facility], [address] H65.192 Assoc, Hospitalists THIN FILM TECHNICIAN F29 F42 Office Visit 10/21/2015 9:34a [facility], [address]603 H65.192 Assoc, Hospitalists THIN FILM TECHNICIAN F29 F42 Office Visit 10/20/2015 9:15a [facility], [address]257 H65.192 Assoc, Hospitalists THIN FILM TECHNICIAN F29 F42 Plan of Care 12/17/2017 - Alberto Augustine M.D.,[id number] Adverse effect of other systemic antibiotics, sequelaComments:Discussed not prescribing additional antibiotics at this time. Your symptoms should resolve within afew weeks.J01.90 Acute sinusitis, unspecifiedComments:Discussed your recent ER visit. Continue taking current medications as prescribed.F42.9 Obsessive-compulsive disorder, unspecifiedComments:Continue to follow up with Dr. Young as planned. Continue taking Sertraline as prescribed. Discussed eating prior to taking LuxmfdmobrB06.11 Encounter for screening for malignant neoplasm of colonComments :Discussed need for colon cancer screeningReferral:Eric Perla MD, Gastroenterology
[2018-01-04 13:25] LABS: ABS Basophils 0 10^3/ul (0-0.2); ABS Eosinophils 0 10^3/ul (0-0.6); ABS Lymphocytes 0.8 10^3/ul (1.0-4.8); ABS Monocytes 0.4 10^3/ul (0-0.8); ABS Neutrophils 4.7 10^3/ul (1.5-7.7); ABS Nucleated RBC 0 10^3/ul; Eosinophil % 0.6 % (0-6); Hematocrit 38 % (35-47); Lymphocyte % 13.8 % (25-47); Mean Corpuscular HGB Conc 34 g/dl (31-36); Mean Corpuscular Hemoglobin 32 pg (27-31); Mean Corpuscular Volume 93 fL (80-97); Mean Platelet Volume 9.3 fL (7.4-10.4); Nucleated Red Blood Cells % 0.1; Platelet Count 233 10^3/ul (150-450); Red Cell Distribution Width 14 % (10.5-15)
[2018-01-04 14:08] LABS: EGFR Non-African American 80.3 (>60)
[2018-01-04 15:53] LABS: Urine Appearance Cloudy; Urine Blood Negative (Negative); Urine Color Yellow; Urine Ketones Trace (Negative); Urine Protein Negative (Negative); Urine Red Blood Cell Trace(0-2/hpf) (Absent); Urine Urobilinogen Negative (Negative); Urine White Blood Cell 2+(11-20/hpf) (Absent)
[2018-01-04] MEDS ORDERED: Al Hydrox/Mg Hydrox/Simet LIQ* 30 ML UDC PO PRN (20:05)
[2018-01-04] MEDS ORDERED: Acetaminophen TAB* 325 MG PO PRN (20:05)
[2018-01-04] MEDS: QUEtiapine TAB* 25 MG PO SCH (22:32)
[2018-01-04] MEDS: Sertraline* 100 MG TAB PO SCH (22:36)
[2018-01-05] MEDS: Vitamin THERAPEUTIC TAB PO SCH (10:38)
[2018-01-05] MEDS: Fluticasone NASAL SPRAY 50MCG* 16 gm SPRAY BTL BOTH NARES SCH (10:38)
--- NOTE | 2018-01-05 19:04 | HP ---
HISTORY AND PHYSICAL: DATE OF ADMISSION: 01/04/18 ADDENDUM: This is an addendum to previous history and physical on this patient dated 12/20/17. SOURCE OF INFORMATION: The patient is an extremely limited historian. This note is based on review of admission data, previous records, and limited interview with the patient. HISTORY OF PRESENT ILLNESS: Ms. Wright is a 57-year-old intellectually disabled female, who is single, unemployed, and domiciled. HISTORY OF PRESENT ILLNESS: She was previously admitted here from 12/20/17 to because of somatic complaints and paranoid delusions; at that time, her compliance with medications was questionable and she had difficulty eating and drinking and completing other activities of daily living. The patient during her admission was compliant with medications. Her medication regimen was simplified to only taking medications at bedtime to improve her adherence. She showed independent functioning on the unit. She stopped voicing somatic complaints. She was treated successfully for UTI with antibiotics, culture specific to the microorganism. The patient's daughter was notified of her discharge. The patient was picked up by her Medicaid service coordinator, Kristina. The following day, the patient was taken to see HINA Garcia at [facility]. The Kristina MCGEE reported the patient started acting strange soon after discharge. She appeared to be responding to internal stimuli. She refused to take prescribed medications. She stopped eating , only drank some orange juice from a sealed container. She taped her refrigerator shut because she was afraid that people would try to poison her. Ms. Knutson felt the patient was still symptomatic and unsafe to be in the community and referred her back to the ED of this hospital. She was readmitted on voluntary status. MENTAL STATUS EXAMINATION: The patient is a 57-year-old white female with short appiah hair, who looked her stated age. She was adequately groomed, casually dressed in her own clothes. She appeared reluctant to leaving her room. She told this typewriter ribbon winder that she had to make her bed first. This typewriter ribbon winder and his student assisted the patient in making the bed, but even after that, she appeared to not want to leave her room. She was gently coaxed by my student to come to the interview room. The patient explained that after she was discharged, her ears became clogged with wax and she felt she needed to come back to the hospital to have this taken care of. She presented as childlike. She had long latencies in her speech. She was somatically preoccupied. Her speech was at times difficult to understand, but was not pressured. She was disorganized in her thinking and circumstantial. She denied auditory or visual hallucinations. Her insight and judgment were grossly limited. Impulse control was good in this setting. She was alert, oriented x3. SUMMARY: A 57-year-old female with previous diagnoses of obsessive-compulsive disorder and mild intellectual disability, who was readmitted the day after she was discharged because of concerns by her outpatient providers that she was paranoid and unsafe to be home alone. The patient's medical history is noncontributory. The patient denied any recent substance abuse. She had not been compliant with taking prescribed medications. She denied any stressors other than somatic preoccupations that her ears are clogged. TREATMENT PLAN: Readmit to mental health unit, 15-minute checks, full code status. Legal status is voluntary. Initiate comprehensive milieu, individual, and group psychotherapeutic supports. Medication management, we will restart regimen the patient was discharged on. Discharge planning will involve coordination with [facility] and Dorota Mercedes in determining if the patient is able to continue living independently or if she should be moved to a detention setting where her taking of medications could be monitored and she could get help with her activities of daily living. [id number]/CPS #: [id number] CAITIE
[2018-01-05] MEDS: Sertraline* 100 MG TAB PO SCH (21:29)
[2018-01-05] MEDS: QUEtiapine TAB* 25 MG PO SCH (21:29)
[2018-01-06] MEDS: Fluticasone NASAL SPRAY 50MCG* 16 gm SPRAY BTL BOTH NARES SCH (10:33)
[2018-01-06] MEDS: Vitamin THERAPEUTIC TAB PO SCH (10:33)
[2018-01-06] MEDS: QUEtiapine TAB* 25 MG PO SCH (22:04)
[2018-01-06] MEDS: Sertraline* 100 MG TAB PO SCH (22:04)
[2018-01-07] MEDS: Fluticasone NASAL SPRAY 50MCG* 16 gm SPRAY BTL BOTH NARES SCH (09:38)
[2018-01-07] MEDS: Vitamin THERAPEUTIC TAB PO SCH (09:38)
--- NOTE | 2018-01-07 11:28 | PN ---
Subjective - Subjective Date of Service: 01/07/18 Service Type: 08898 Hosp care 15 min low complexity Subjective: patient presents as anxious with congruent affect. She reports concern about "stuffy air" and contamination. She accepted prn lorazepam with good effect. She requests bottled water and ensure with meals, erica to previous admission. She asks if "Kristina is going to find a half-way." Objective - Appearance Appearance: Well Developed/Nourished Dysmorphic Features: No Hygiene: Normal Grooming: Well Kept - Behavior Psychomotor Activities: Normal Exhibits Abnormal Movement: No - Attitude and Relatedness Attitude and Relatedness: Needy Eye Contact: Good - Speech Quality: Unpressured Latencies: Short Quantity: Terse - Mood Patient's Decription of Mood: "Anxious" - Affect Observed Affect: Tense Affect Consistent with: Dysphoria - Thought Process Patient's Thought Process: Circumstantial, Impoverished Thought Content: No Passive Wish, No Suicidal Planning, No Homicidal Ideation, No Paranoid Ideation - Sensorium Experiencing Hallucinations: No, Sensorium is Clear Type of Hallucinations: Visual: No, Auditory: No, Command: No - Level of Consciousness Level of Consciousness: Alert Orientation: Yes Intact, Yes Orientated to Time, Yes Orientated to Place, Yes Orientated to Person - Impulse Control Impulse Control: Impaired - Insight and Judgement Insight and Judgement: Impaired - Group Participation Particating in Group Activities: Yes - Medication Management Medication Management Adherence: Yes Assessment - Assessment Merits Inpatient Hospitalization: For Immediate Safety, For Stabilization, For Ongoing Evaluation Inpatient DSM-V Dx: F42.9 Clinical Impression: 57yo white female, domiciled, who presents to ED the day after discharge due to paranoid delusions, medication nonadherence and inability to care for self. Patient merits hospitalization for immediate safety and stabilization. Plan - Plan Treatment Plan: Name: PRISCA CLARK Birthdate: 1960 [id number] continue acute intensive psychiatric treatment. add lorazepam prn anxiety. discharge planning to include outpatient providers. Continued Medication Management: Continue Outpt Medication Medications: Current Medications Acetaminophen (Tylenol Tab*) 650 mg PO Q4H PRN PRN Reason: for pain; or Temp >101 F Al Hydrox/Mg Hydrox/Simethicone (Maalox Plus*) 30 ml PO Q4H PRN PRN Reason: INDIGESTION Fluticasone Propionate (Flonase Nasal [place] 50mcg*) 2 spray BOTH NARES DAILY [facility] Last Admin: 01/07/18 09:38 Dose: Not Given Lorazepam (Ativan Tab(*)) 0.5 mg PO Q6H PRN PRN Reason: ANXIETY Multivitamins (Theragran Tab*) 1 tab PO DAILY [facility] Last Admin: 01/07/18 09:38 Dose: Not Given Quetiapine Fumarate (Seroquel Tab*) 50 mg PO BEDTIME [facility] Last Admin: 01/06/18 22:04 Dose: 50 mg Sertraline HCl (Zoloft*) 200 mg PO BEDTIME [facility] Last Admin: 01/06/18 22:04 Dose: Not Given - Discharge Plan Discharge Plan: Consider Longer Term Tx
[2018-01-07] MEDS: LORazepam TAB(*) 0.5 MG PO PRN (11:59)
[2018-01-07] MEDS: QUEtiapine TAB* 25 MG PO SCH (21:15)
[2018-01-07] MEDS: Sertraline* 100 MG TAB PO SCH (21:19)
[2018-01-08] MEDS: LORazepam TAB(*) 0.5 MG PO PRN ×2 (10:25→16:30)
[2018-01-08] MEDS: Vitamin THERAPEUTIC TAB PO SCH (10:27)
[2018-01-08] MEDS: Fluticasone NASAL SPRAY 50MCG* 16 gm SPRAY BTL BOTH NARES SCH (10:27)
[2018-01-08] MEDS ORDERED: PPD test dose* 5 TU/0.1 ML TEST (*USE PPD ORDER SET*) INTRADERM ONE (14:00)
--- NOTE | 2018-01-08 16:57 | PN ---
Subjective - Subjective Date of Service: 01/08/18 Service Type: 46356 Hosp care 15 min low complexity Subjective: patient noted to have improvement in anxious mood with use of lorazepam. she declined HS sertraline, citing it was "too much" and should be 25mg. greeting card writer notified patient that we increased the dose to 200mg during last admission and this was tolerated well. she c/o not wanting to touch towels after using them and is encouraged to ask for gloves from staff then return them to nursing station. Objective - Appearance Appearance: Well Developed/Nourished Dysmorphic Features: Yes Hygiene: Normal Grooming: Well Kept - Behavior Psychomotor Activities: Normal Exhibits Abnormal Movement: No - Attitude and Relatedness Attitude and Relatedness: Needy Eye Contact: Good - Speech Quality: Unpressured Latencies: Normal Quantity: Terse - Mood Patient's Decription of Mood: "Anxious" - Affect Observed Affect: Depressed Affect Consistent with: Dysphoria - Thought Process Patient's Thought Process: Circumstantial, Impoverished Thought Content: Yes Paranoid Ideation, No Passive Wish, No Suicidal Planning, No Homicidal Ideation - Sensorium Experiencing Hallucinations: No, Sensorium is Clear Type of Hallucinations: Visual: No, Auditory: No, Command: No - Level of Consciousness Level of Consciousness: Alert Orientation: Yes Intact, Yes Orientated to Time, Yes Orientated to Place, Yes Orientated to Person - Impulse Control Impulse Control: Tenuous - Insight and Judgement Insight and Judgement: Poor - Group Participation Particating in Group Activities: Yes - Medication Management Medication Management Adherence: Yes Assessment - Assessment Merits Inpatient Hospitalization: For Immediate Safety, For Stabilization, Pending Safe DC Plan Inpatient DSM-V Dx: F42.9 Clinical Impression: 57yo white female, domiciled, who presents to ED the day after discharge due to paranoid delusions, medication nonadherence and inability to care for self. Patient merits hospitalization for immediate safety and stabilization. MHU: Problem List - Patient Problems (1) OCD (obsessive compulsive disorder) Current Visit: No Status: Chronic Priority: Medium Code(s): F42 - OBSESSIVE-COMPULSIVE DISORDER * DO NOT USE * SNOMED Code(s): 971869365 Comment: continued medication management and encourage independence with ADLs Plan - Plan Treatment Plan: Name: PRISCA CLARK Birthdate: 1960 [id number] continue acute intensive psychiatric treatment. continue current medications. discharge planning to include outpatient providers, tentative placement at [facility] on 01/14/18. Continued Medication Management: Start Medication Medications: Current Medications Acetaminophen (Tylenol Tab*) 650 mg PO Q4H PRN PRN Reason: for pain; or Temp >101 F Al Hydrox/Mg Hydrox/Simethicone (Maalox Plus*) 30 ml PO Q4H PRN PRN Reason: INDIGESTION Fluticasone Propionate (Flonase Nasal [place] 50mcg*) 2 spray BOTH NARES DAILY [facility] Last Admin: 01/08/18 10:27 Dose: Not Given Lorazepam (Ativan Tab(*)) 0.5 mg PO Q6H PRN PRN Reason: ANXIETY Last Admin: 01/08/18 16:30 Dose: 0.5 mg Multivitamins (Theragran Tab*) 1 tab PO DAILY [facility] Last Admin: 01/08/18 10:27 Dose: Not Given Quetiapine Fumarate (Seroquel Tab*) 50 mg PO BEDTIME [facility] Last Admin: 01/07/18 21:15 Dose: 50 mg Sertraline HCl (Zoloft*) 200 mg PO BEDTIME [facility] Last Admin: 01/07/18 21:19 Dose: Not Given - Discharge Plan Discharge Plan: Outpatient Follow Up Outpatient Program: [facility]
[2018-01-08] MEDS: Sertraline* 100 MG TAB PO SCH (22:01)
[2018-01-08] MEDS: QUEtiapine TAB* 25 MG PO SCH (22:01)
[2018-01-09] MEDS: Fluticasone NASAL SPRAY 50MCG* 16 gm SPRAY BTL BOTH NARES SCH (11:44)
[2018-01-09] MEDS: Vitamin THERAPEUTIC TAB PO SCH (11:44)
[2018-01-09] MEDS: LORazepam TAB(*) 0.5 MG PO SCH ×2 (14:17→21:40)
--- NOTE | 2018-01-09 16:46 | PN ---
Subjective - Subjective Date of Service: 01/09/18 Service Type: 11970 Hosp care 15 min low complexity Subjective: Patient continues to present as anxious, ameliorated by lorazepam. She c/o sinus congestion especially in her L ear. Ear canals patent, TM visible and intact bilat. Patient requests "ear medicine" and is likely referring to cetirizine. She reports 2 tabs of sertraline is "too much." Product Transfer Pumper informed her that she was taking this dose last week and that this is beneficial for OCD. Objective - Appearance Appearance: Well Developed/Nourished Dysmorphic Features: Yes Hygiene: Normal Grooming: Well Kept - Behavior Psychomotor Activities: Normal Exhibits Abnormal Movement: No - Attitude and Relatedness Attitude and Relatedness: Cooperative Eye Contact: Good - Speech Quality: Unpressured Latencies: Short Quantity: Terse - Mood Patient's Decription of Mood: "Anxious" - Affect Observed Affect: Tense Affect Consistent with: Dysphoria - Thought Process Patient's Thought Process: Impoverished Thought Content: No Passive Wish, No Suicidal Planning, No Homicidal Ideation, No Paranoid Ideation - Sensorium Experiencing Hallucinations: No, Sensorium is Clear Type of Hallucinations: Visual: No, Auditory: No, Command: No - Level of Consciousness Level of Consciousness: Alert Orientation: Yes Intact, Yes Orientated to Time, Yes Orientated to Place, Yes Orientated to Person - Impulse Control Impulse Control: Poor - Insight and Judgement Insight and Judgement: Poor - Group Participation Particating in Group Activities: Yes - Medication Management Medication Management Adherence: Yes Assessment - Assessment Merits Inpatient Hospitalization: For Immediate Safety, For Stabilization Inpatient DSM-V Dx: F42.9 Clinical Impression: 57yo white female, domiciled, who presents to ED the day after discharge due to paranoid delusions, medication nonadherence and inability to care for self. Patient merits hospitalization for immediate safety and stabilization. MHU: Problem List - Patient Problems (1) OCD (obsessive compulsive disorder) Current Visit: No Status: Chronic Priority: Medium Code(s): F42 - OBSESSIVE-COMPULSIVE DISORDER * DO NOT USE * SNOMED Code(s): 158432993 Comment: continued medication management and encourage independence with ADLs Plan - Plan Treatment Plan: Name: PRISCA CLARK Birthdate: 1960 [id number] continue acute intensive psychiatric treatment. change lorazepam to scheduled, add cetirizine. discharge planning to include outpatient providers, tentative placement at [facility] on 01/14/18. Continued Medication Management: Start Medication Medications: Current Medications Acetaminophen (Tylenol Tab*) 650 mg PO Q4H PRN PRN Reason: for pain; or Temp >101 F Al Hydrox/Mg Hydrox/Simethicone (Maalox Plus*) 30 ml PO Q4H PRN PRN Reason: INDIGESTION Cetirizine HCl (Zyrtec*) 10 mg PO BEDTIME [facility]; Protocol Fluticasone Propionate (Flonase Nasal [place] 50mcg*) 2 spray BOTH NARES DAILY [facility] Last Admin: 01/09/18 11:44 Dose: Not Given Lorazepam (Ativan Tab(*)) 0.5 mg PO TID [facility] Last Admin: 01/09/18 14:17 Dose: 0.5 mg Quetiapine Fumarate (Seroquel Tab*) 50 mg PO BEDTIME [facility] Last Admin: 01/08/18 22:01 Dose: 50 mg Sertraline HCl (Zoloft*) 200 mg PO BEDTIME [facility] Last Admin: 01/08/18 22:01 Dose: 200 mg - Discharge Plan Discharge Plan: [facility]
--- NOTE | 2018-01-09 17:27 | PN ---
MHU: Group Therapy Note - Service Type Service Type: 85905 Group Psychotherapy - Medication Education Group: Patient was attentive and participatory in group, and remained in good behavioral control. Patient expressed positive insights regarding relevant treatment interventions. Patient stated understanding of material discussed and had appropriate questions.
[2018-01-09] MEDS: QUEtiapine TAB* 25 MG PO SCH (21:37)
[2018-01-09] MEDS: Cetirizine* 10 MG TAB PO SCH (21:38)
[2018-01-09] MEDS: Sertraline* 100 MG TAB PO SCH (21:39)
[2018-01-10] MEDS: Fluticasone NASAL SPRAY 50MCG* 16 gm SPRAY BTL BOTH NARES SCH (11:17)
[2018-01-10] MEDS: LORazepam TAB(*) 0.5 MG PO SCH ×3 (11:19→20:24)
--- NOTE | 2018-01-10 14:54 | PN ---
Subjective - Subjective Date of Service: 01/10/18 Service Type: 37147 Hosp care 15 min low complexity Subjective: Patient demonstrating irritability attributed to the medication nurse improperly (in patient's perception) giving her the cups/pills. Objective - Appearance Appearance: Well Developed/Nourished Dysmorphic Features: Yes Hygiene: Normal Grooming: Well Kept - Behavior Psychomotor Activities: Normal Exhibits Abnormal Movement: No - Attitude and Relatedness Attitude and Relatedness: Irritable Eye Contact: Good - Speech Quality: Unpressured Latencies: Normal Quantity: Appropriate - Mood Patient's Decription of Mood: "Upset" - Affect Observed Affect: Expansive Affect Consistent with: Dysphoria - Thought Process Patient's Thought Process: Circumstantial Thought Content: No Passive Wish, No Suicidal Planning, No Homicidal Ideation, No Paranoid Ideation - Sensorium Experiencing Hallucinations: No, Sensorium is Clear Type of Hallucinations: Visual: No, Auditory: No, Command: No - Level of Consciousness Level of Consciousness: Alert Orientation: Yes Intact, Yes Orientated to Time, Yes Orientated to Place, Yes Orientated to Person - Impulse Control Impulse Control: Tenuous - Insight and Judgement Insight and Judgement: Poor - Group Participation Particating in Group Activities: Yes - Medication Management Medication Management Adherence: Partial Assessment - Assessment Merits Inpatient Hospitalization: For Immediate Safety, Pending Safe DC Plan Inpatient DSM-V Dx: F42.9 Clinical Impression: 57yo white female, domiciled, who presents to ED the day after discharge due to paranoid delusions, medication nonadherence and inability to care for self. Patient merits hospitalization for immediate safety and stabilization. MHU: Problem List - Patient Problems (1) OCD (obsessive compulsive disorder) Current Visit: No Status: Chronic Priority: Medium Code(s): F42 - OBSESSIVE-COMPULSIVE DISORDER * DO NOT USE * SNOMED Code(s): 355975470 Comment: continued medication management and encourage independence with ADLs Plan - Plan Treatment Plan: Name: PRISCA CLARK Birthdate: 1960 [id number] continue acute intensive psychiatric treatment. may decrease to q30min observation and allow staff pass. continue current medications, change sertraline to 100mg BID to alleviate patient anxiety about taking too many pills at once. discharge planning to include outpatient providers, tentative placement at [facility] on 11/12/18. Continued Medication Management: Continue Outpt Medication Medications: Current Medications Acetaminophen (Tylenol Tab*) 650 mg PO Q4H PRN PRN Reason: for pain; or Temp >101 F Al Hydrox/Mg Hydrox/Simethicone (Maalox Plus*) 30 ml PO Q4H PRN PRN Reason: INDIGESTION Cetirizine HCl (Zyrtec*) 10 mg PO BEDTIME [facility]; Protocol Last Admin: 01/09/18 21:38 Dose: 10 mg Fluticasone Propionate (Flonase Nasal [place] 50mcg*) 2 spray BOTH NARES DAILY [facility] Last Admin: 01/10/18 11:17 Dose: Not Given Lorazepam (Ativan Tab(*)) 0.5 mg PO TID [facility] Last Admin: 01/10/18 11:19 Dose: Not Given Multivitamins (Theragran Tab*) 1 tab PO BEDTIME [facility] Quetiapine Fumarate (Seroquel Tab*) 50 mg PO BEDTIME [facility] Last Admin: 01/09/18 21:37 Dose: 50 mg Sertraline HCl (Zoloft*) 200 mg PO BEDTIME [facility] Last Admin: 01/09/18 21:39 Dose: 200 mg - Discharge Plan Discharge Plan: Outpatient Follow Up Outpatient Program: [facility]
[2018-01-10] MEDS: Cetirizine* 10 MG TAB PO SCH (20:24)
[2018-01-10] MEDS: QUEtiapine TAB* 25 MG PO SCH (20:24)
[2018-01-10] MEDS: Vitamin THERAPEUTIC TAB PO SCH (20:25)
[2018-01-10] MEDS: Sertraline* 100 MG TAB PO SCH (20:30)
[2018-01-11] MEDS: LORazepam TAB(*) 0.5 MG PO SCH ×3 (11:27→21:44)
[2018-01-11] MEDS: Fluticasone NASAL SPRAY 50MCG* 16 gm SPRAY BTL BOTH NARES SCH (11:29)
[2018-01-11] MEDS: Sertraline* 100 MG TAB PO SCH ×2 (13:49→20:49)
--- NOTE | 2018-01-11 15:54 | PN ---
Subjective - Subjective Date of Service: 01/11/18 Service Type: 20845 Hosp care 15 min low complexity Subjective: Patient tearful at times, attributes this to "wanting to go home." She states understanding of plan to stay until sunday, awaiting respite bed at [facility]. Atmospheric Scientist phoned patient's daughter, Rachael, and updated her with plan. Also gave Rachael the contact information for patient's customer service professional, Kristina. Objective - Appearance Appearance: Well Developed/Nourished Dysmorphic Features: Yes Hygiene: Normal Grooming: Well Kept - Behavior Psychomotor Activities: Normal Exhibits Abnormal Movement: No - Attitude and Relatedness Attitude and Relatedness: Cooperative Eye Contact: Good - Speech Quality: Unpressured Latencies: Normal Quantity: Terse - Mood Patient's Decription of Mood: "Okay" - Affect Observed Affect: Tearful Affect Consistent with: Dysphoria - Thought Process Patient's Thought Process: Circumstantial, Impoverished Thought Content: No Passive Wish, No Suicidal Planning, No Homicidal Ideation, No Paranoid Ideation - Sensorium Experiencing Hallucinations: No, Sensorium is Clear Type of Hallucinations: Visual: No, Auditory: No, Command: No - Level of Consciousness Level of Consciousness: Alert Orientation: Yes Intact, Yes Orientated to Time, Yes Orientated to Place, Yes Orientated to Person - Impulse Control Impulse Control: Intact - Insight and Judgement Insight and Judgement: Poor - Group Participation Particating in Group Activities: Yes - Medication Management Medication Management Adherence: Partial Assessment - Assessment Merits Inpatient Hospitalization: For Immediate Safety, Pending Safe DC Plan Inpatient DSM-V Dx: F42.9 Clinical Impression: 57yo white female, domiciled, who presents to ED the day after discharge due to paranoid delusions, medication nonadherence and inability to care for self. She is awaiting respite bed with probable discharge on 01/14/18. MHU: Problem List - Patient Problems (1) OCD (obsessive compulsive disorder) Current Visit: No Status: Chronic Priority: Medium Code(s): F42 - OBSESSIVE-COMPULSIVE DISORDER * DO NOT USE * SNOMED Code(s): [id number] Comment: continued medication management and encourage independence with ADLs Plan - Plan Treatment Plan: Name: PRISCA CLARK Birthdate: 1960 [id number] continue acute intensive psychiatric treatment. may decrease to q30min observation and allow staff pass. continue current medications, change sertraline to 100mg BID to alleviate patient anxiety about taking too many pills at once. discharge planning to include outpatient providers, tentative placement at health [facility] on [facility]18. Medications: Current Medications Acetaminophen (Tylenol Tab*) 650 mg PO Q4H PRN PRN Reason: for pain; or Temp >101 F Al Hydrox/Mg Hydrox/Simethicone (Maalox Plus*) 30 ml PO Q4H PRN PRN Reason: INDIGESTION Cetirizine HCl (Zyrtec*) 10 mg PO BEDTIME [facility]; Protocol Last Admin: 01/10/18 20:24 Dose: 10 mg Fluticasone Propionate (Flonase Nasal [place] 50mcg*) 2 spray BOTH NARES DAILY [facility] Last Admin: 01/11/18 11:29 Dose: Not Given Lorazepam (Ativan Tab(*)) 0.5 mg PO TID [facility] Last Admin: 01/11/18 11:27 Dose: 0.5 mg Multivitamins (Theragran Tab*) 1 tab PO BEDTIME [facility] Last Admin: 01/10/18 20:25 Dose: 1 tab Quetiapine Fumarate (Seroquel Tab*) 50 mg PO BEDTIME [facility] Last Admin: 01/10/18 20:24 Dose: 50 mg Sertraline HCl (Zoloft*) 100 mg PO BID [facility] Last Admin: 01/11/18 13:49 Dose: 100 mg - Discharge Plan Discharge Plan: [facility]
[2018-01-11] MEDS: QUEtiapine TAB* 25 MG PO SCH (20:48)
[2018-01-11] MEDS: Cetirizine* 10 MG TAB PO SCH (20:48)
[2018-01-11] MEDS: Vitamin THERAPEUTIC TAB PO SCH (20:50)
[2018-01-12] MEDS: LORazepam TAB(*) 0.5 MG PO SCH ×3 (11:30→21:19)
[2018-01-12] MEDS: Sertraline* 100 MG TAB PO SCH ×2 (11:32→21:19)
[2018-01-12] MEDS: Fluticasone NASAL SPRAY 50MCG* 16 gm SPRAY BTL BOTH NARES SCH (11:34)
[2018-01-12] MEDS: Cetirizine* 10 MG TAB PO SCH (21:19)
[2018-01-12] MEDS: Vitamin THERAPEUTIC TAB PO SCH (21:19)
[2018-01-12] MEDS: QUEtiapine TAB* 25 MG PO SCH (21:19)
[2018-01-13] MEDS: Fluticasone NASAL SPRAY 50MCG* 16 gm SPRAY BTL BOTH NARES SCH (12:26)
[2018-01-13] MEDS: Sertraline* 100 MG TAB PO SCH ×2 (12:26→22:07)
[2018-01-13] MEDS: LORazepam TAB(*) 0.5 MG PO SCH ×3 (12:26→22:07)
[2018-01-13] MEDS: QUEtiapine TAB* 25 MG PO SCH (22:06)
[2018-01-13] MEDS: Cetirizine* 10 MG TAB PO SCH (22:06)
[2018-01-13] MEDS: Vitamin THERAPEUTIC TAB PO SCH (22:07)
[2018-01-14 09:09] VITALS: BP 119/61
[2018-01-14] MEDS: Sertraline* 100 MG TAB PO SCH (09:48)
[2018-01-14] MEDS: LORazepam TAB(*) 0.5 MG PO SCH (09:48)
[2018-01-14] MEDS: Fluticasone NASAL SPRAY 50MCG* 16 gm SPRAY BTL BOTH NARES SCH (09:49)
[2018-01-14] MEDS ORDERED: PPD test dose* 5 TU/0.1 ML TEST (*USE PPD ORDER SET*) INTRADERM SCH (11:00)
--- NOTE | 2018-01-15 10:20 | DS ---
CC: Dr. Bourgeois, [facility]; [facility]; [facility] Care Coordination DISCHARGE SUMMARY: DATE OF ADMISSION: 01/04/18 DATE OF DISCHARGE: 01/14/18 SUPERVISING PSYCHIATRIST: Dr. Chintan Lara. DISCHARGE DIAGNOSIS: Obsessive compulsive disorder and intellectual disability. CONDITION AT THE TIME OF DISCHARGE: Improved. The patient has been completing ADLs. She has been partially compliant with medications. She reported frustration with taking too many pills at bedtime and was notified that this was to help with medication adherence. The patient is involved with [facility] and Medicaid service coordinator, Kristina, who was present for discharge. The patient is being discharged to [facility] while awaiting [facility] placement. During her admission, the patient has been present for groups and meals. She has had 1 somatic complaint of having cerumen in her ear and this was assessed and the patient was notified that she has a normal amount of earwax. MENTAL STATUS EXAM: Rosalva is a 57-year-old white female who appears stated age. She is walking about the unit, well groomed, and wearing her own clothing with the exception of wearing paper scrubs that are cut short as she does not like these to drag on the ground. Rosalva is alert and oriented x3. Eye contact is good. Speech is soft, mumbled, and impoverished, which is baseline the patient. No abnormal psychomotor activity noted. Mood is euthymic with mild anxiety. Affect is full range. Thought process is impoverished, circumstantial , and goal directed. 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 The patient denies suicidal ideation, homicidal ideation, urges for harm towards self or others. She does not have a violent history. She denies auditory or visual hallucinations. Insight and judgment are fair. The patient has a history of low average intellect. DISCHARGE INSTRUCTIONS GIVEN TO PATIENT: A. Medications: Cetirizine 10 mg p.o. bedtime, Flonase nasal spray 2 sprays both nares daily, quetiapine 50 mg p.o. q.h.s., and sertraline 200 mg p.o. q.h.s. B. Diet: Regular. C. Activity: Ambulation as tolerated. Tobacco cessation is not applicable. The patient was given second PPD today, 01/14/18, which can be read by [facility] staff in 48 to 72 hours. D. Followup care: The patient will follow up with [facility] on 01/16/18, at 11 a.m. with Zarina Knutson and with nurse practitioner, Saundra Albright, on 01/21/18 at 2:30 p.m. She can follow up with primary care provider as needed. E. Substance use followup: Not applicable. HOSPITAL COURSE: PART A: Reason for Admission: The patient presented to the emergency department 1 day after discharge on 01/04/18. She had been discharged the day previously. She presented to [facility] for her followup appointment as planned; however, she had not eaten or drank since discharge. She was presenting with paranoid delusions. Collateral obtained denotes that she had taped her refrigerator shut due to seeing people in the refrigerator and was wearing plastic around her shoes due to fears of contaminations. The patient was admitted to adult behavioral services unit on voluntary status. PART B: Psychiatric Treatment Rendered: Immediately upon admission, Medicaid service coordinator, Kristina, notified plan of utilizing [facility] with a bed date of 01/14/18. [facility] until being placed in an [facility] as she is unsafe to live alone and unable to care for herself. We reinstated medications. The patient was hesitant to take sertraline despite given information that she was taking the dose when discharged previously and anyway, we reinstated medications and titrated sertraline to 200 mg at bedtime. The patient was increasingly interactive with staff and groups. She was able to make needs known. She was safe on all checks. She was decreased to 30-minute observation and allowed to go on staff pass. The patient also responded well to use of lorazepam, this was initially started as a p.r.n. medication. Nursing staff noted a good effect. Therefore, we trialed this medication on a scheduled basis and patient did well. She was observed to have less anxious and less repetitive behaviors. The patient tolerated medication changes. She was no longer voicing psychotic delusions. She continues to have difficulty with concerns of contamination and germophobia. The patient reported frustrated with sinus and feeling ears were full. She declined Flonase, but was agreeable to cetirizine. We had treated a fairly significant UTI in the previous admission; this admission, she did not have signs and symptoms of such. KATHY VALADEZ, BRICK DROPPER [id number]/[facility] #: [id number] [place]
[2018-01-16] MEDS ORDERED: PPD Reading NOTE* (*USE PPD ORDER SET*) SCH (11:00)
== END 2018-01-14 11:10 | disposition home or self-care (01) | DRG 882 ==
LOC: ED 12:31 → BSU 18:13
PROVIDERS: ADMIT Psychiatry & Neurology Psychiatry; ATTEND Psychiatry & Neurology Psychiatry
DX: F42.9 Obsessive-compulsive disorder, unspecified (principal); F79 Unspecified intellectual disabilities
CPT/HCPCS: 36415; 80053; 80307; 80320; 80329; 81003; 81015; 84443; 85025; 87086; 90853; 99222; 99231; 99238; 99285; A9270-GY; G0480